=== PATIENT | male | born 1950 | race Caucasian/White ===

== ENCOUNTER 2017-07-03 20:20 | Inpatient (IN) | payer MEDICARE, OTHER ==
[2017-07-03 21:00] LABS: % BASOPHILS 2.7 % (0.0-2.0); % EOSINOPHILS 2.7 % (0.0-5.0); % LYMPHOCYTES 29.4 % (20.0-50.0); % MONOCYTES 7.7 % (2.0-10.0); % NEUTROPHILS 57.5 % (40.0-80.0); HEMATOCRIT 44.3 % (39.0-49.0); HEMOGLOBIN 14.7 gm/dL (12.6-17.4); MEAN CELL VOLUME 93.4 fl (80-99); MEAN CORPUSCULAR HEMOGLOBIN 30.9 pg (27.0-31.0); MEAN CORPUSCULAR HGB CONC 33.1 pg (28.0-36.0); MEAN PLATELET VOLUME 8.4 fl; NEUTROPHILE ABSOLUTE 4.1 Th/cmm (1.8-8.0); PLATELET COUNT 206 Th/cmm (150-400); RED BLOOD COUNT 4.74 Mil/cmm (3.80-5.80); RED CELL DISTRIBUTION WIDTH 14.1 % (11.5-20.0); WHITE BLOOD COUNT 7.1 Th/cmm (4.8-10.8)
--- NOTE | 2017-07-03 21:17 | ED Physician Chart ---
ED Chief Complaint/HPI - Patient Information Date Seen:: 07/03/17 Time Seen:: 21:10 Chief Complaint:: outburst of anger History of Present Illness:: exhibiting outbursts of anger and increased agitation [facility] Historian:: Patient Review:: Nurse's Note Reviewed ED Review of Systems - Review of Systems General/Constitutional: No fever, No chills Skin: No skin lesions Head: No headache Eyes: No loss of vision ENT: No earache Neck: No neck pain Cardio Vascular: No chest pain, No palpitations Pulmonary: No SOB GI: No nausea, No vomiting, No diarrhea G/U: No dysuria Musculoskeletal: No bone or joint pain Endocrine: No polyuria Psychiatric: Prior psych history Hematopoietic: No bruising Allergic/Immuno: No urticaria Neurological: No syncope, No focal symptoms ED Past Medical History - Past Medical History Past Medical History: HTN, Other (s/p sepsis; chronic renal disease; iron deficiency anemia; schizophrenia) Family History: None Social History: Smoker, Care Facility Surgical History: other (suprapubic catheter) Psychiatricy History: Schizophrenia Medication: Reviewed Family Medical History - Family Member Mother History Unknown: Yes ED Physical Exam - Physical Examination General/Constitutional: Alert, No distress Other Gen/Cons comments:: knows the month, year and day of the week Eyes: Lids, conjuctiva normal, PERRL Skin: Nl inspection, No rash ENMT: External ears, nose nl Other ENMT comments:: edentulous Neck: No nuchal rigidity Respiratory: Nl effort/Exclusion, Clear to Auscultation Cardio Vascular: RRR GI: No tenderness/rebounding/guarding, No organomegaly, No hernia Other comments:: suprapubic catheter Extremities: Normal digits & nails Neuro/Psych: No focal deficits ED Labs/Radiology/EKG Results - Lab Results Results: Laboratory Results - last 24 hr 07/03/17 07/03/17 07/03/17 20:54 20:54 20:54 WBC 7.1 RBC 4.74 Hgb 14.7 Hct 44.3 MCV 93.4 MCH 30.9 MCHC Differential 33.1 RDW 14.1 Plt Count 206 MPV 8.4 Neutrophils % 57.5 Lymphocytes % 29.4 Monocytes % 7.7 Eosinophils % 2.7 Basophils % 2.7 H Sodium 137 Potassium 4.3 Chloride 105 Carbon Dioxide 28.7 Anion Gap 7.6 BUN 25 Creatinine 0.9 Est GFR ( Amer) > 60.0 Est GFR (Non-Af Amer) > 60.0 BUN/Creatinine Ratio 27.8 Glucose 103 Calcium 10.0 Total Bilirubin 0.2 L AST 19 ALT 15 Alkaline Phosphatase 88 Total Protein 6.7 Albumin 4.0 L Globulin 2.7 Albumin/Globulin Ratio 1.5 Triglycerides 192 H Cholesterol 175 LDL Cholesterol Direct 101 HDL Cholesterol 54 Urine Source Urine Color Urine Clarity Urine pH Ur Specific [place] Urine Protein Urine Glucose (UA) Urine Ketones Urine Blood Urine Nitrate Urine Bilirubin Urine Urobilinogen Ur Leukocyte Esterase Urine RBC Urine WBC Ur Epithelial Cells Urine Bacteria Valproic Acid 90.5 07/03/17 21:20 WBC RBC Hgb Hct MCV MCH MCHC Differential RDW Plt Count MPV Neutrophils % Lymphocytes % Monocytes % Eosinophils % Basophils % Sodium Potassium Chloride Carbon Dioxide Anion Gap BUN Creatinine Est GFR ( Amer) Est GFR (Non-Af Amer) BUN/Creatinine Ratio Glucose Calcium Total Bilirubin AST ALT Alkaline Phosphatase Total Protein Albumin Globulin Albumin/Globulin Ratio Triglycerides Cholesterol LDL Cholesterol Direct HDL Cholesterol Urine Source CLEAN C Urine Color YELLOW Urine Clarity CLOUDY Urine pH 6.0 Ur Specific [place] 1.025 Urine Protein 100 H Urine Glucose (UA) NEGATIVE Urine Ketones NEGATIVE Urine Blood LARGE H Urine Nitrate NEGATIVE Urine Bilirubin NEGATIVE Urine Urobilinogen 0.2 Ur Leukocyte Esterase MODERATE H Urine RBC 25-50 H Urine WBC 25-50 H Ur Epithelial Cells NONE SEEN Urine Bacteria MODERATE Valproic Acid - EKG Interpretations Rate & Rhythm: sinus bradycardia; rate 49; LAD and RBBB ED Assessment - Assessment General Assessment: will not start antibiotics for UTI since everyone with suprapubic catheter will have pyuria ED Septic Shock - . Is Septic Shock (SBP<90, OR Lactate>4 mmol\L) present?: No ED Reassessment (Disposition) - Reassessment Reassessment Condition:: Unchanged - Diagnosis Diagnosis:: schizophrenia; agitation; pyuria; hematuria - Patient Disposition Admitted to:: [facility] Admitting Medical Physician:: Gloria Louie Admitting Psych Physician:: Emerita Gregg Condition at Disposition:: Stable, Unchanged
[2017-07-03 21:33] LABS: ALB/GLOB RATIO 1.5 (1.0-1.8); ALKALINE PHOSPHATASE 88 U/L (34-104); ANION GAP 7.6 (7.0-16.0); BILIRUBIN,TOTAL 0.2 mg/dL (0.3-1.0); BUN - UREA NITROGEN 25 mg/dL (7-25); BUN/CREATININE RATIO 27.8; CARBON DIOXIDE 28.7 mEq/L (21.0-31.0); CHLORIDE 105 mEq/L (98-107); CHOLESTEROL 175 mg/dL (<200); CREATININE - SERUM 0.9 mg/dL (0.7-1.3); GLUCOSE 103 mg/dL (70-105); POTASSIUM SERUM 4.3 mEq/L (3.5-5.1); SGOT 19 U/L (13-39); SGPT/ALT 15 U/L (7-52); SODIUM SERUM 137 mEq/L (136-145); TRIGLYCERIDES 192 mg/dL (<150)
[2017-07-03 21:40] LABS: URINE BILIRUBIN NEGATIVE (NEGATIVE); URINE BLOOD LARGE (NEGATIVE); URINE GLUCOSE (UA) NEGATIVE (NEGATIVE); URINE KETONE NEGATIVE (NEGATIVE); URINE PROTEIN 100 mg/dL (NEGATIVE); URINE UROBILINOGEN 0.2 E.U./dL (0.2 - 1.0)
[2017-07-03 21:45] LABS: URINE COLOR YELLOW
[2017-07-03 21:50] LABS: URINE BACTERIA MODERATE /hpf (NONE SEEN); URINE EPITHELIAL CELLS NONE SEEN /lpf (FEW); URINE RBC 25-50 /hpf (0-5)
[2017-07-03 21:57] LABS: URINE WBC 25-50 /hpf (0-5)
[2017-07-03 23:17] VITALS: BP 132/78
[2017-07-03] MEDS ORDERED: Magnesium Hydroxide (MOM) 30 mL UDC PO PRN (23:20)
[2017-07-03] MEDS ORDERED: Fleet Enema 135 mL RC PRN (23:20)
[2017-07-04] MEDS ORDERED: Non-Formulary Item 1 EA (Cranberry Conc/C/Bacill Coag [Cranberry Tablet] 1 EACH) PO SCH (09:00)
[2017-07-04] MEDS: Multivitamin w/ Minerals Tab PO SCH (10:22)
[2017-07-04] MEDS: Aspirin 81mg Chewable Tab PO SCH (10:22)
[2017-07-04] MEDS: Ferrous Sulfate 325 MG TAB PO SCH ×3 (10:24→21:15)
--- NOTE | 2017-07-04 13:17 | Psychosocial Evaluation ---
DATE OF SERVICE: 07/04/2017 IDENTIFYING INFORMATION: The patient is a 66-year-old male. CHIEF COMPLAINT: "I don't know." HISTORY OF PRESENT ILLNESS: The patient was sent from his senior living because of agitation. He came from [facility]. The patient himself was a poor historian and ____ he knows he is in the hospital; he thinks he lives in the hospital. He does not know exactly why he is here. He denies that he was hallucinating, but he admits that he has a history of hallucination. Denies any command hallucination. He reports he sleep well. He is not eating well. He was able to tell me the date and his date of , but his speech was pressured when I talked to him. The patient has been on Depakote, iron, Remeron 30 mg at bedtime, and olanzapine 10 mg at bedtime. PAST PSYCHIATRIC HISTORY: The patient reported that he has a history of prior hospitalizations because of pain, unable to give information. He denies that he has prior suicide attempt; however, he is not a reliable historian. ALLERGIES: The patient has no known drug allergies. MEDICAL HISTORY: I defer to the medical doctor. MEDICATIONS: He is on aspirin, iron; so probably he has anemia. He has pain. He is on Tylenol No. 3. He has high blood pressure and on metoprolol. FAMILY AND SOCIAL HISTORY: The patient reports he is single, never , no children, has 5th grade education. He used to work in wood carving. Denies substance abuse problems. He denies having any family psychiatric disorder. He is not sure if there is any family around. MENTAL STATUS EXAMINATION: The patient is appropriately dressed, not well groomed. His mood is depressed. Affect is constricted. Thoughts are concrete. Speech is coherent, though he was alert, oriented to person and time. He knows he is in hospital. He is not sure which hospital. He is not sure why is here, thinking is here because of pain. He has no clue about this situation as he was very agitated at the senior living. He seems to have average intelligence. He was able to tell me the current President of [employer]. He is not sure why he is here. His long-term memory is good for age, date of . Recent memory, cannot remember events of intent or what he ate for breakfast. Immediate memory is poor, cannot concentrate long enough. His insight and judgment are questionable. 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 ASSETS: He wants to get help negative poor coping skills. INITIAL TREATMENT PLAN: The patient will be continued with medications. We will do group therapy, milieu therapy, individual therapies. ESTIMATED LENGTH OF STAY: 3-7 days. DISCHARGE CRITERIA: Decreasing depression, psychosis no longer agitated. After discharge, outpatient. [facility]# [id number]
--- NOTE | 2017-07-05 01:44 | History & Physical ---
ADMIT DATE: 07/03/2017 HISTORY OF PRESENT ILLNESS: A 66-year-old male with long history of hypertension, dementia, depression and psychosis, admitted to Geropsych Department under Dr. Gregg's service for evaluation and treatment. The patient has been very depressed, confused. No chest pain, no shortness of breath, no nausea, no vomiting, no fever, no chills. PAST MEDICAL HISTORY: Significant for hypertension, dementia, depression. PAST SURGICAL HISTORY: No recent surgery. ALLERGIES: None. MEDICATIONS: Follow admission reconciliation. SOCIAL HISTORY: No smoking, no alcohol, no drug. FAMILY HISTORY: Noncontributory. REVIEW OF SYSTEMS: RENAL SYSTEM: No history of chronic renal disorder. CARDIOVASCULAR SYSTEM: History of hypertension. ENDOCRINE SYSTEM: No diabetes or thyroid problem. GASTROINTESTINAL SYSTEM: No upper or lower gastrointestinal bleed. NEUROLOGICAL: He has history of dementia, depression, and psychosis. MUSCULOSKELETAL SYSTEM: No muscular dystrophy. HEMATOLOGIC SYSTEM: No bleeding tendencies. RESPIRATORY: No asthma. GENITOURINARY: No dysuria or hematuria. PHYSICAL EXAMINATION: GENERAL: He is awake, alert, mildly confused. VITAL SIGNS: His temperature 98.2, heart rate 96, blood pressure 103/52. HEENT: Normocephalic. Pupils reactive to light and accommodation. Sclerae clear. NECK: Supple. Negative for lymphadenopathy, JVD or bruit. CHEST: Bilateral normal. No rhonchi or wheezing. HEART: S1, S2 normal, no gallop. ABDOMEN: Soft, bowel sounds positive. EXTREMITIES: No edema. NEUROLOGIC: Awake, alert, mildly confused. No focal motor or sensory deficits. LABORATORY DATA: White blood 7.1, hemoglobin 14.7, hematocrit 44.3, platelet 206. Sodium 137, potassium 4.3, BUN 25, creatinine 0.9, triglyceride is 192. Urinalysis positive for white blood cells. ASSESSMENT: 1.Urinary tract infection. 2.Hypertension. 3.Dementia. 4.Depression. 5.Hyperlipidemia. PLAN: The patient admitted to the hospital under Dr. Gregg's service. MEDICAL PROBLEMS TO BE ADDRESSED DURING HOSPITALIZATION: Depression, dementia, psychosis, urinary tract infection. MEDICAL PROBLEMS TO BE ADDRESSED AT DISCHARGE: Hypertension, dementia, depression. The patient is medically stable for activity. Thank you, Dr. Gregg, for asking me to see your patient. JOB# [id number]
[2017-07-05] MEDS: Multivitamin w/ Minerals Tab PO SCH (10:00)
[2017-07-05] MEDS: Aspirin 81mg Chewable Tab PO SCH (10:00)
[2017-07-05] MEDS: Ferrous Sulfate 325 MG TAB PO SCH ×3 (10:00→20:55)
--- NOTE | 2017-07-05 20:33 | Internal Medicine Prog Note ---
Internal Medicine Subjective - Subjective Service Date: 07/05/17 Patient seen and examined:: with staff Patient is:: awake, in bed, talking, confused Per staff patient has:: no adverse event Internal Medicine Objective - Results Result Diagrams: 07/03/17 20:54 07/03/17 20:54 Recent Labs: Laboratory Last Values WBC 7.1 Th/cmm (4.8-10.8) 07/03/17 20:54 RBC 4.74 Mil/cmm (3.80-5.80) 07/03/17 20:54 Hgb 14.7 gm/dL (12.6-17.4) 07/03/17 20:54 Hct 44.3 % (39.0-49.0) 07/03/17 20:54 MCV 93.4 fl (80-99) 07/03/17 20:54 MCH 30.9 pg (27.0-31.0) 07/03/17 20:54 MCHC Differential 33.1 pg (28.0-36.0) 07/03/17 20:54 RDW 14.1 % (11.5-20.0) 07/03/17 20:54 Plt Count 206 Th/cmm (150-400) 07/03/17 20:54 MPV 8.4 fl 07/03/17 20:54 Neutrophils % 57.5 % (40.0-80.0) 07/03/17 20:54 Lymphocytes % 29.4 % (20.0-50.0) 07/03/17 20:54 Monocytes % 7.7 % (2.0-10.0) 07/03/17 20:54 Eosinophils % 2.7 % (0.0-5.0) 07/03/17 20:54 Basophils % 2.7 % (0.0-2.0) H 07/03/17 20:54 Sodium 137 mEq/L (136-145) 07/03/17 20:54 Potassium 4.3 mEq/L (3.5-5.1) 07/03/17 20:54 Chloride 105 mEq/L (98-107) 07/03/17 20:54 Carbon Dioxide 28.7 mEq/L (21.0-31.0) 07/03/17 20:54 Anion Gap 7.6 (7.0-16.0) 07/03/17 20:54 BUN 25 mg/dL (7-25) 07/03/17 20:54 Creatinine 0.9 mg/dL (0.7-1.3) 07/03/17 20:54 Est GFR ( Amer) > 60.0 ml/min (>90) 07/03/17 20:54 Est GFR (Non-Af Amer) > 60.0 ml/min 07/03/17 20:54 BUN/Creatinine Ratio 27.8 07/03/17 20:54 Glucose 103 mg/dL (70-105) 07/03/17 20:54 Calcium 10.0 mg/dL (8.6-10.3) 07/03/17 20:54 Total Bilirubin 0.2 mg/dL (0.3-1.0) L 07/03/17 20:54 AST 19 U/L (13-39) 07/03/17 20:54 ALT 15 U/L (7-52) 07/03/17 20:54 Alkaline Phosphatase 88 U/L (34-104) 07/03/17 20:54 Total Protein 6.7 gm/dL (6.0-8.3) 07/03/17 20:54 Albumin 4.0 gm/dL (4.2-5.5) L 07/03/17 20:54 Globulin 2.7 gm/dL 07/03/17 20:54 Albumin/Globulin Ratio 1.5 (1.0-1.8) 07/03/17 20:54 Triglycerides 192 mg/dL (<150) H 07/03/17 20:54 Cholesterol 175 mg/dL (<200) 07/03/17 20:54 LDL Cholesterol Direct 101 mg/dL (75-193) 07/03/17 20:54 HDL Cholesterol 54 mg/dL (23-92) 07/03/17 20:54 TSH 2.72 uIU/ml (0.34-5.60) 07/03/17 20:54 Urine Source CLEAN C 07/03/17 21:20 Urine Color YELLOW 07/03/17 21:20 Urine Clarity CLOUDY (CLEAR) 07/03/17 21:20 Urine pH 6.0 (4.6 - 8.0) 07/03/17 21:20 Ur Specific [place] 1.025 (1.005-1.030) 07/03/17 21:20 Urine Protein 100 mg/dL (NEGATIVE) H 07/03/17 21:20 Urine Glucose (UA) NEGATIVE mg/dL (NEGATIVE) 07/03/17 21:20 Urine Ketones NEGATIVE mg/dL (NEGATIVE) 07/03/17 21:20 Urine Blood LARGE (NEGATIVE) H 07/03/17 21:20 Urine Nitrate NEGATIVE (NEGATIVE) 07/03/17 21:20 Urine Bilirubin NEGATIVE (NEGATIVE) 07/03/17 21:20 Urine Urobilinogen 0.2 E.U./dL (0.2 - 1.0) 07/03/17 21:20 Ur Leukocyte Esterase MODERATE (NEGATIVE) H 07/03/17 21:20 Urine RBC 25-50 /hpf (0-5) H 07/03/17 21:20 Urine WBC 25-50 /hpf (0-5) H 07/03/17 21:20 Ur Epithelial Cells NONE SEEN /lpf (FEW) 07/03/17 21:20 Urine Bacteria MODERATE /hpf (NONE SEEN) 07/03/17 21:20 Valproic Acid 90.5 ug/mL (50.0-100.0) 07/03/17 20:54 RPR NONREACTIVE (NONREACTIVE) 07/03/17 20:54 - Physical Exam Vitals and I&O: Vital Signs Temp 98.4 F 07/05/17 14:00 Pulse 64 07/05/17 17:41 Resp 19 07/05/17 14:00 BP 126/83 07/05/17 17:41 Pulse Ox 97 07/05/17 14:00 Intake & Output 07/05/17 07/05/17 07/06/17 06:59 18:59 06:59 Intake Total 1200 Output Total 450 Balance -450 1200 Intake: Oral 1200 Output: Urine 450 Other: # Bowel Movements 0 Active Medications: Current Medications Acetaminophen (Tylenol) 650 mg PO Q4HR PRN PRN Reason: Pain or Fever >101 Stop: 09/01/17 23:19 Last Admin: 07/05/17 10:00 Dose: 650 mg Acetaminophen/Hydrocodone Bitart ([place] 5mg/325mg) 1 tab PO Q6H PRN PRN Reason: Pain (Severe) Stop: 09/01/17 23:19 Ascorbic Acid (Vitamin C) 500 mg PO DAILY LUCIA Stop: 09/02/17 08:59 Last Admin: 07/05/17 10:00 Dose: 500 mg Aspirin (Aspirin Chewable) 81 mg PO DAILY ULCIA Stop: 09/02/17 08:59 Last Admin: 07/05/17 10:00 Dose: 81 mg Bisacodyl (Dulcolax 10 Mg Supp) 10 mg RC DAILY PRN PRN Reason: Constipation Stop: 09/01/17 23:19 Ceftriaxone Sodium (Rocephin) 1 gm IM DAILY L[facility]IA Stop: 07/09/17 09:01 Last Admin: 07/05/17 14:59 Dose: 1 gm Divalproex Sodium (Depakote Dr) 500 mg PO TID LUCIA PRN Reason: Protocol Stop: 09/02/17 08:59 Last Admin: 07/05/17 13:15 Dose: 500 mg Docusate Sodium (Colace) 100 mg PO BID [facility] Stop: 09/02/17 08:59 Last Admin: 07/05/17 17:40 Dose: 100 mg Ferrous Sulfate (Iron) 325 mg PO TID LUCIA Stop: 09/02/17 08:59 Last Admin: 07/05/17 13:15 Dose: 325 mg Magnesium Hydroxide (Milk Of Magnesia) 30 ml PO HS PRN PRN Reason: Constipation Stop: 09/01/17 23:19 Metoprolol Tartrate (Lopressor) 25 mg PO BID [facility] Stop: 09/02/17 08:59 Last Admin: 07/05/17 17:41 Dose: 25 mg Mirtazapine (Remeron) 30 mg PO HS [facility] Stop: 09/02/17 20:59 Last Admin: 07/04/17 21:15 Dose: 30 mg Olanzapine (Zyprexa) 10 mg PO HS [facility] PRN Reason: Protocol Stop: 09/02/17 20:59 Last Admin: 07/04/17 21:15 Dose: 10 mg Sodium Phosphate (Fleet Enema) 135 ml RC Q48H PRN PRN Reason: Constipation Stop: 09/01/17 23:19 General: demented HEENT: NC/AT, PERRLA, EOMI, anicteric sclerae, throat clear Neck: No JVD, No thyromegaly, +2 carotid pulse wo bruit, No LAD, + JVD Lungs: CTAB Cardiovascular: RRR, Normal S1, Normal S2, without murmur Abdomen: soft, non-tender, non-distended Extremities: clear Neurological: no change Internal Medicine Assmt/Plan - Assessment Assessment: 1.UTI. 2.DEPRESSION. 3.HTNT 4.DEMENTIA - Plan Plan: CONTINUE ON ROCEPHIN ONE GM IM DAILY FOR 5 DAYS.
[2017-07-06] MEDS: Hydrocodone/APAP 5mg/325mg Tab PO PRN (09:14)
[2017-07-06] MEDS: Ferrous Sulfate 325 MG TAB PO SCH ×3 (09:16→20:34)
[2017-07-06] MEDS: Multivitamin w/ Minerals Tab PO SCH (09:16)
[2017-07-06] MEDS: Aspirin 81mg Chewable Tab PO SCH (09:16)
--- NOTE | 2017-07-06 20:55 | Progress Notes ---
DATE: 07/05/2017 This is a male patient, reviewed records. The patient continues to be internally preoccupied. Continues to be unpredictable, impulsive, making bizarre statements, very poor insight. He is compliant with the medication with no side effects or sedation. No nausea, no extrapyramidal symptoms. I will continue the patient in group therapy, milieu therapy, adjust medication as needed. [facility]# [id number]
--- NOTE | 2017-07-06 21:41 | Internal Medicine Prog Note ---
Internal Medicine Subjective - Subjective Service Date: 07/06/17 Patient seen and examined:: with staff Patient is:: awake, in bed, talking, confused Per staff patient has:: no adverse event Internal Medicine Objective - Results Result Diagrams: 07/03/17 20:54 07/03/17 20:54 Recent Labs: Laboratory Last Values WBC 7.1 Th/cmm (4.8-10.8) 07/03/17 20:54 RBC 4.74 Mil/cmm (3.80-5.80) 07/03/17 20:54 Hgb 14.7 gm/dL (12.6-17.4) 07/03/17 20:54 Hct 44.3 % (39.0-49.0) 07/03/17 20:54 MCV 93.4 fl (80-99) 07/03/17 20:54 MCH 30.9 pg (27.0-31.0) 07/03/17 20:54 MCHC Differential 33.1 pg (28.0-36.0) 07/03/17 20:54 RDW 14.1 % (11.5-20.0) 07/03/17 20:54 Plt Count 206 Th/cmm (150-400) 07/03/17 20:54 MPV 8.4 fl 07/03/17 20:54 Neutrophils % 57.5 % (40.0-80.0) 07/03/17 20:54 Lymphocytes % 29.4 % (20.0-50.0) 07/03/17 20:54 Monocytes % 7.7 % (2.0-10.0) 07/03/17 20:54 Eosinophils % 2.7 % (0.0-5.0) 07/03/17 20:54 Basophils % 2.7 % (0.0-2.0) H 07/03/17 20:54 Sodium 137 mEq/L (136-145) 07/03/17 20:54 Potassium 4.3 mEq/L (3.5-5.1) 07/03/17 20:54 Chloride 105 mEq/L (98-107) 07/03/17 20:54 Carbon Dioxide 28.7 mEq/L (21.0-31.0) 07/03/17 20:54 Anion Gap 7.6 (7.0-16.0) 07/03/17 20:54 BUN 25 mg/dL (7-25) 07/03/17 20:54 Creatinine 0.9 mg/dL (0.7-1.3) 07/03/17 20:54 Est GFR ( Amer) > 60.0 ml/min (>90) 07/03/17 20:54 Est GFR (Non-Af Amer) > 60.0 ml/min 07/03/17 20:54 BUN/Creatinine Ratio 27.8 07/03/17 20:54 Glucose 103 mg/dL (70-105) 07/03/17 20:54 Calcium 10.0 mg/dL (8.6-10.3) 07/03/17 20:54 Total Bilirubin 0.2 mg/dL (0.3-1.0) L 07/03/17 20:54 AST 19 U/L (13-39) 07/03/17 20:54 ALT 15 U/L (7-52) 07/03/17 20:54 Alkaline Phosphatase 88 U/L (34-104) 07/03/17 20:54 Total Protein 6.7 gm/dL (6.0-8.3) 07/03/17 20:54 Albumin 4.0 gm/dL (4.2-5.5) L 07/03/17 20:54 Globulin 2.7 gm/dL 07/03/17 20:54 Albumin/Globulin Ratio 1.5 (1.0-1.8) 07/03/17 20:54 Triglycerides 192 mg/dL (<150) H 07/03/17 20:54 Cholesterol 175 mg/dL (<200) 07/03/17 20:54 LDL Cholesterol Direct 101 mg/dL (75-193) 07/03/17 20:54 HDL Cholesterol 54 mg/dL (23-92) 07/03/17 20:54 TSH 2.72 uIU/ml (0.34-5.60) 07/03/17 20:54 Urine Source CLEAN C 07/03/17 21:20 Urine Color YELLOW 07/03/17 21:20 Urine Clarity CLOUDY (CLEAR) 07/03/17 21:20 Urine pH 6.0 (4.6 - 8.0) 07/03/17 21:20 Ur Specific [place] 1.025 (1.005-1.030) 07/03/17 21:20 Urine Protein 100 mg/dL (NEGATIVE) H 07/03/17 21:20 Urine Glucose (UA) NEGATIVE mg/dL (NEGATIVE) 07/03/17 21:20 Urine Ketones NEGATIVE mg/dL (NEGATIVE) 07/03/17 21:20 Urine Blood LARGE (NEGATIVE) H 07/03/17 21:20 Urine Nitrate NEGATIVE (NEGATIVE) 07/03/17 21:20 Urine Bilirubin NEGATIVE (NEGATIVE) 07/03/17 21:20 Urine Urobilinogen 0.2 E.U./dL (0.2 - 1.0) 07/03/17 21:20 Ur Leukocyte Esterase MODERATE (NEGATIVE) H 07/03/17 21:20 Urine RBC 25-50 /hpf (0-5) H 07/03/17 21:20 Urine WBC 25-50 /hpf (0-5) H 07/03/17 21:20 Ur Epithelial Cells NONE SEEN /lpf (FEW) 07/03/17 21:20 Urine Bacteria MODERATE /hpf (NONE SEEN) 07/03/17 21:20 Valproic Acid 90.5 ug/mL (50.0-100.0) 07/03/17 20:54 RPR NONREACTIVE (NONREACTIVE) 07/03/17 20:54 - Physical Exam Vitals and I&O: Vital Signs Temp 97.0 F 07/06/17 14:05 Pulse 56 07/06/17 14:05 Resp 20 07/06/17 14:05 BP 137/78 07/06/17 14:05 Pulse Ox 97 07/06/17 14:05 Intake & Output 07/06/17 07/06/17 07/07/17 06:59 18:59 06:59 Intake Total 120 800 Output Total 650 900 Balance -530 -100 Intake: Oral 120 800 Output: Urine 650 900 Other: # Bowel Movements 0 Active Medications: Current Medications Acetaminophen (Tylenol) 650 mg PO Q4HR PRN PRN Reason: Pain or Fever >101 Stop: 09/01/17 23:19 Last Admin: 07/05/17 20:54 Dose: 650 mg Acetaminophen/Hydrocodone Bitart ([place] 5mg/325mg) 1 tab PO Q6H PRN PRN Reason: Pain (Severe) Stop: 09/01/17 23:19 Last Admin: 07/06/17 09:14 Dose: 1 tab Ascorbic Acid (Vitamin C) 500 mg PO DAILY [facility] Stop: 09/02/17 08:59 Last Admin: 07/06/17 09:16 Dose: 500 mg Aspirin (Aspirin Chewable) 81 mg PO DAILY [facility] Stop: 09/02/17 08:59 Last Admin: 07/06/17 09:16 Dose: 81 mg Bisacodyl (Dulcolax 10 Mg Supp) 10 mg RC DAILY PRN PRN Reason: Constipation Stop: 09/01/17 23:19 Ceftriaxone Sodium (Rocephin) 1 gm IM DAILY [facility] Stop: 07/09/17 09:01 Last Admin: 07/06/17 09:14 Dose: 1 gm Divalproex Sodium (Depakote Dr) 500 mg PO TID [facility]IA PRN Reason: Protocol Stop: 09/02/17 08:59 Last Admin: 07/06/17 20:34 Dose: 500 mg Docusate Sodium (Colace) 100 mg PO BID [facility] Stop: 09/02/17 08:59 Last Admin: 07/06/17 16:29 Dose: 100 mg Ferrous Sulfate (Iron) 325 mg PO TID [facility] Stop: 09/02/17 08:59 Last Admin: 07/06/17 20:34 Dose: 325 mg Magnesium Hydroxide (Milk Of Magnesia) 30 ml PO HS PRN PRN Reason: Constipation Stop: 09/01/17 23:19 Metoprolol Tartrate (Lopressor) 25 mg PO BID [facility] Stop: 09/02/17 08:59 Last Admin: 07/06/17 16:30 Dose: Not Given Mirtazapine (Remeron) 30 mg PO HS [facility] Stop: 09/02/17 20:59 Last Admin: 07/06/17 20:34 Dose: 30 mg Olanzapine (Zyprexa) 10 mg PO HS [facility] PRN Reason: Protocol Stop: 09/02/17 20:59 Last Admin: 07/06/17 20:34 Dose: 10 mg Sodium Phosphate (Fleet Enema) 135 ml RC Q48H PRN PRN Reason: Constipation Stop: 09/01/17 23:19 General: demented HEENT: NC/AT, PERRLA, EOMI, anicteric sclerae, throat clear Neck: No JVD, No thyromegaly, +2 carotid pulse wo bruit, No LAD, + JVD Lungs: CTAB Cardiovascular: RRR, Normal S1, Normal S2, without murmur Abdomen: soft, non-tender, non-distended Extremities: clear Neurological: no change Internal Medicine Assmt/Plan - Assessment Assessment: 1.UTI. 2.DEPRESSION. 3.HTNT 4.DEMENTIA - Plan Plan: CONTINUE ON current medication and diet.
--- NOTE | 2017-07-07 05:01 | Progress Notes ---
DATE: 07/06/2017 Case was discussed with staff of the patient, reviewed records. The patient continues to stay in bed. He continues to be unable to make safe plan for self-care or participate in a meaningful conversation. He is unable to take care of himself, needs to take care with his ADLs. He is unpredictable, impulsive, needing redirection. His Depakote level is 90.5 which is within acceptable therapeutic range. TSH is 2.72 which is within acceptable range. Urinalysis shows evidence of blood and may be infection and proteinuria and I will consult with the medical doctor regarding that. He has high triglycerides. His chemistry panel was within normal range. CBC within normal range. We will continue with the patient in group therapy, milieu therapy, and adjust the medications as needed. JOB# [id number]
[2017-07-07] MEDS: Aspirin 81mg Chewable Tab PO SCH (08:19)
[2017-07-07] MEDS: Multivitamin w/ Minerals Tab PO SCH (08:22)
[2017-07-07] MEDS: Ferrous Sulfate 325 MG TAB PO SCH ×3 (08:22→20:47)
[2017-07-07] MEDS: Hydrocodone/APAP 5mg/325mg Tab PO PRN ×2 (09:45→16:56)
[2017-07-07] MEDS ORDERED: Probiotic Screen MC PRN (18:00)
--- NOTE | 2017-07-08 02:22 | Progress Notes ---
DATE: 07/07/2017 Case was discussed with staff of the patient, reviewed records. The patient continues to stay in bed, continues to have poor insight. Continues to be unable to make safe plan for self-care. Looking disheveled, disorganized, internally preoccupied. He has been compliant with the medication with no side effects, no sedation, no nausea, no extrapyramidal symptoms and his urine culture came back positive for different ____ already discussed with the medical doctor. I will continue with the patient in group therapy, milieu therapy, and adjust medications as needed. JOB# [id number]
[2017-07-08] MEDS: Lactobacillus Rhamnosus 10 Billion CFU Capsule PO SCH (08:23)
[2017-07-08] MEDS: Multivitamin w/ Minerals Tab PO SCH (08:23)
[2017-07-08] MEDS: Ferrous Sulfate 325 MG TAB PO SCH ×3 (08:23→20:43)
[2017-07-08] MEDS: Aspirin 81mg Chewable Tab PO SCH (08:23)
--- NOTE | 2017-07-08 13:08 | Internal Medicine Prog Note ---
Internal Medicine Subjective - Subjective Service Date: 07/08/17 Patient seen and examined:: without staff Patient is:: awake, in bed, talking, confused Per staff patient has:: no adverse event Internal Medicine Objective - Results Result Diagrams: 07/03/17 20:54 07/03/17 20:54 Recent Labs: Laboratory Last Values WBC 7.1 Th/cmm (4.8-10.8) 07/03/17 20:54 RBC 4.74 Mil/cmm (3.80-5.80) 07/03/17 20:54 Hgb 14.7 gm/dL (12.6-17.4) 07/03/17 20:54 Hct 44.3 % (39.0-49.0) 07/03/17 20:54 MCV 93.4 fl (80-99) 07/03/17 20:54 MCH 30.9 pg (27.0-31.0) 07/03/17 20:54 MCHC Differential 33.1 pg (28.0-36.0) 07/03/17 20:54 RDW 14.1 % (11.5-20.0) 07/03/17 20:54 Plt Count 206 Th/cmm (150-400) 07/03/17 20:54 MPV 8.4 fl 07/03/17 20:54 Neutrophils % 57.5 % (40.0-80.0) 07/03/17 20:54 Lymphocytes % 29.4 % (20.0-50.0) 07/03/17 20:54 Monocytes % 7.7 % (2.0-10.0) 07/03/17 20:54 Eosinophils % 2.7 % (0.0-5.0) 07/03/17 20:54 Basophils % 2.7 % (0.0-2.0) H 07/03/17 20:54 Sodium 137 mEq/L (136-145) 07/03/17 20:54 Potassium 4.3 mEq/L (3.5-5.1) 07/03/17 20:54 Chloride 105 mEq/L (98-107) 07/03/17 20:54 Carbon Dioxide 28.7 mEq/L (21.0-31.0) 07/03/17 20:54 Anion Gap 7.6 (7.0-16.0) 07/03/17 20:54 BUN 25 mg/dL (7-25) 07/03/17 20:54 Creatinine 0.9 mg/dL (0.7-1.3) 07/03/17 20:54 Est GFR ( Amer) > 60.0 ml/min (>90) 07/03/17 20:54 Est GFR (Non-Af Amer) > 60.0 ml/min 07/03/17 20:54 BUN/Creatinine Ratio 27.8 07/03/17 20:54 Glucose 103 mg/dL (70-105) 07/03/17 20:54 Calcium 10.0 mg/dL (8.6-10.3) 07/03/17 20:54 Total Bilirubin 0.2 mg/dL (0.3-1.0) L 07/03/17 20:54 AST 19 U/L (13-39) 07/03/17 20:54 ALT 15 U/L (7-52) 07/03/17 20:54 Alkaline Phosphatase 88 U/L (34-104) 07/03/17 20:54 Total Protein 6.7 gm/dL (6.0-8.3) 07/03/17 20:54 Albumin 4.0 gm/dL (4.2-5.5) L 07/03/17 20:54 Globulin 2.7 gm/dL 07/03/17 20:54 Albumin/Globulin Ratio 1.5 (1.0-1.8) 07/03/17 20:54 Triglycerides 192 mg/dL (<150) H 07/03/17 20:54 Cholesterol 175 mg/dL (<200) 07/03/17 20:54 LDL Cholesterol Direct 101 mg/dL (75-193) 07/03/17 20:54 HDL Cholesterol 54 mg/dL (23-92) 07/03/17 20:54 TSH 2.72 uIU/ml (0.34-5.60) 07/03/17 20:54 Urine Source CLEAN C 07/03/17 21:20 Urine Color YELLOW 07/03/17 21:20 Urine Clarity CLOUDY (CLEAR) 07/03/17 21:20 Urine pH 6.0 (4.6 - 8.0) 07/03/17 21:20 Ur Specific [place] 1.025 (1.005-1.030) 07/03/17 21:20 Urine Protein 100 mg/dL (NEGATIVE) H 07/03/17 21:20 Urine Glucose (UA) NEGATIVE mg/dL (NEGATIVE) 07/03/17 21:20 Urine Ketones NEGATIVE mg/dL (NEGATIVE) 07/03/17 21:20 Urine Blood LARGE (NEGATIVE) H 07/03/17 21:20 Urine Nitrate NEGATIVE (NEGATIVE) 07/03/17 21:20 Urine Bilirubin NEGATIVE (NEGATIVE) 07/03/17 21:20 Urine Urobilinogen 0.2 E.U./dL (0.2 - 1.0) 07/03/17 21:20 Ur Leukocyte Esterase MODERATE (NEGATIVE) H 07/03/17 21:20 Urine RBC 25-50 /hpf (0-5) H 07/03/17 21:20 Urine WBC 25-50 /hpf (0-5) H 07/03/17 21:20 Ur Epithelial Cells NONE SEEN /lpf (FEW) 07/03/17 21:20 Urine Bacteria MODERATE /hpf (NONE SEEN) 07/03/17 21:20 Valproic Acid 90.5 ug/mL (50.0-100.0) 07/03/17 20:54 RPR NONREACTIVE (NONREACTIVE) 07/03/17 20:54 - Physical Exam Vitals and I&O: Vital Signs Temp 97.8 F 07/08/17 05:58 Pulse 60 07/08/17 05:58 Resp 19 07/08/17 05:58 BP 104/65 07/08/17 05:58 Pulse Ox 97 07/08/17 05:58 Intake & Output 07/07/17 07/08/17 07/08/17 18:59 06:59 18:59 Intake Total 700 320 Output Total 400 Balance 700 -80 Weight (lbs) 59.511 kg Intake: Oral 700 320 Output: Urine 400 Other: # Voids 3 2 # Bowel Movements 1 0 Active Medications: Current Medications Acetaminophen (Tylenol) 650 mg PO Q4HR PRN PRN Reason: Pain or Fever >101 Stop: 09/01/17 23:19 Last Admin: 07/05/17 20:54 Dose: 650 mg Acetaminophen/Hydrocodone Bitart ([place] 5mg/325mg) 1 tab PO Q6H PRN PRN Reason: Pain (Severe) Stop: 09/01/17 23:19 Last Admin: 07/07/17 16:56 Dose: 1 tab Ascorbic Acid (Vitamin C) 500 mg PO DAILY [facility] Stop: 09/02/17 08:59 Last Admin: 07/08/17 08:23 Dose: 500 mg Aspirin (Aspirin Chewable) 81 mg PO DAILY [facility] Stop: 09/02/17 08:59 Last Admin: 07/08/17 08:23 Dose: 81 mg Bisacodyl (Dulcolax 10 Mg Supp) 10 mg RC DAILY PRN PRN Reason: Constipation Stop: 09/01/17 23:19 Ceftriaxone Sodium (Rocephin) 1 gm IM DAILY [facility] Stop: 07/09/17 09:01 Last Admin: 07/08/17 09:57 Dose: 1 gm Divalproex Sodium (Depakote Dr) 500 mg PO TID [facility] PRN Reason: Protocol Stop: 09/02/17 08:59 Last Admin: 07/08/17 08:23 Dose: 500 mg Docusate Sodium (Colace) 100 mg PO BID [facility] Stop: 09/02/17 08:59 Last Admin: 07/08/17 08:23 Dose: 100 mg Ferrous Sulfate (Iron) 325 mg PO TID [facility] Stop: 09/02/17 08:59 Last Admin: 07/08/17 08:23 Dose: 325 mg Lactobacillus Rhamnosus (Culturelle) 1 each PO DAILY [facility] Stop: 09/06/17 08:59 Last Admin: 07/08/17 08:23 Dose: 1 each Magnesium Hydroxide (Milk Of Magnesia) 30 ml PO HS PRN PRN Reason: Constipation Stop: 09/01/17 23:19 Metoprolol Tartrate (Lopressor) 25 mg PO BID [facility] Stop: 09/02/17 08:59 Last Admin: 07/08/17 08:23 Dose: Not Given Mirtazapine (Remeron) 30 mg PO HS [facility] Stop: 09/02/17 20:59 Last Admin: 07/07/17 20:46 Dose: 30 mg Miscellaneous (Probiotic Screen) 1 ea MC PRN PRN PRN Reason: PROTOCOL Stop: 09/05/17 17:59 Olanzapine (Zyprexa) 10 mg PO HS [facility] PRN Reason: Protocol Stop: 09/02/17 20:59 Last Admin: 07/07/17 20:48 Dose: 10 mg Sodium Phosphate (Fleet Enema) 135 ml RC Q48H PRN PRN Reason: Constipation Stop: 09/01/17 23:19 General: demented HEENT: NC/AT, PERRLA, EOMI, anicteric sclerae, throat clear Neck: No JVD, No thyromegaly, +2 carotid pulse wo bruit, No LAD, + JVD Lungs: CTAB Cardiovascular: RRR, Normal S1, Normal S2, without murmur Abdomen: soft, non-tender, non-distended Extremities: clear Neurological: no change Internal Medicine Assmt/Plan - Assessment Assessment: 1.UTI. 2.DEPRESSION. 3.HTNT 4.DEMENTIA - Plan Plan: CONTINUE ON current medication and diet. Nutritional Asmnt/Malnutr-PDOC - Dietary Evaluation Malnutrition Findings (Please click <Entered> for more info): Nutritional Asmnt/Malnutrition Start: 07/07/17 18: 41 Text: Status: Complete Freq: Document 07/07/17 18:41 GSUN (Rec: 07/07/17 18:43 GSUN [id number]) Nutritional Asmnt/Malnutrition Patient General Information Nutritional Screening Moderate Risk Screening Diagnosis Major depression, recurrent with psychosis and dementia Pertinent Medical Hx/Surgical Hx HTN, dementia, depression psychosis Subjective Information 66 year old from SNF. Spoke to pt resting in bed. Pt was pleasant, slight confusion noted. Avg PO intake 69% of meals since adm, meeting nutritional needs. Pt stated good appetite. Pt is edentulous, denied difficulties eating, deneid sore jaw. Pt denied nutritional concerns at this time. Pt appeared lean, mild wasting to chest and shoudlers noted. Current Diet Order/ Nutrition Support Regular, cranberry juice TID Pertinent Medications Vitamin C, Colace, Iron, Culturelle, MOM, Remeron, Fleet Enema Pertinent Labs Reviewed. Nutritional Hx/Data Height 1.68 m Height (Calculated Centimeters) 167.6 Current Weight (lbs) 59.511 kg Weight (Calculated Kilograms) 59.5 Weight (Calculated Grams) 78003.3 [place] Body Weight 142 Weight Status Approriate GI Symptoms Usual diet at home [facility]: regular Skin Integrity/Comment: Andrae 16. Current %PO Fair (50-74%) Estimated Nutritional Goals BEE in Kcals: Using Current wt Calories/Kcals/Kg CBW 131.2lb/59.6kg Kcals Calculated 1490-1788kcal (25-30kcal/kg) Protein: Using Current wt Protein Calculated 60g (1g/kg) Fluid: ml 1490-1788ml (1ml/kcal) Nutritional Problem 1. Problem Problem No nutritional problem at this time. Intervention/Recommendation Comments 1. Continue with current diet order. Avg PO intake is adequate. Expected Outcomes/Goals Expected Outcomes/Goals 1. PO intake conitnue to meet at least 75% of estimated nutritional needs.
[2017-07-08] MEDS: Hydrocodone/APAP 5mg/325mg Tab PO PRN (16:26)
--- NOTE | 2017-07-09 02:17 | Progress Notes ---
DATE: 07/08/2017 Case was discussed with staff of the patient, reviewed records. The patient continues to stay in bed. He continues to be unpredictable, impulsive, needing redirection. He has been compliant with the medication with no side effects, no sedation, no nausea, and no extrapyramidal symptoms. He is on Depakote and is on Zyprexa and mirtazapine with no side effects, no sedation, no nausea, and no extrapyramidal symptoms. We will continue to work with the patient in group therapy, milieu therapy, and adjust the medication as needed. JOB# [id number]
--- NOTE | 2017-07-09 03:59 | Admit Criteria Form ---
Admit Criteria Forms - Admit Criteria Diagnosis: URINARY COMPLICATIONS Clinical Indications for Inpatient Care (Place 'X' for any and all applicable criteria): Ongoing inpatient care may be needed for Urinary complications with 1 or more of the following: [ ]I. Reduced urine output (eg, despite adequate hydration) [ ]II. Renal failure. (Also use Renal Failure: Common Complications and Conditions as appropriate) [ ]III. Urinary retention requiring drainage or surgery(19)(20)(21)(33)(34) [ ]IV. Postobstructive diuresis requiring close monitoring of urine output and intravenous compensation for excessive fluid losses(35) [X ]V. Urinary tract infection requiring inpatient care as indicated by ANY ONE of the following(8)(19)(20): [ ]a) Hemodynamic instability [ ]b) Severe symptoms (eg, high fever, severe pain) [ ]c) Vomiting or dehydration requiring ongoing inpatient care [X ]d) IV antibiotic needs that cannot be managed at lower level of care [ ]e) Obstruction of collecting system by stone or tumor Extended stay beyond goal length of stay for primary condition may be needed until ALL of the following are present(3)(4)(5)(8): [ ]a) Renal function (creatinine) at baseline, or daily decreases in creatinine consistent with renal function return [ ]b) Voiding adequately or with urinary catheter or percutaneous suprapubic tube and management regimen in place that is performable at lower level of care. [ ]c) Urine output adequate [ ]d) Fever absent or resolving [ ]e) Infection absent or treatable at next level of care The original [employer] content created by [employer] has been revised. The portions of the content which have been revised are identified through the use of italic text or in bold, and [facility] has neither reviewed nor approved the modified material. All other unmodified content is copyright [employer] Please see references footnoted in the original [employer] [facility] edition 2017 Admit Criteria Met?: Yes
[2017-07-09] MEDS: Multivitamin w/ Minerals Tab PO SCH (08:57)
[2017-07-09] MEDS: Aspirin 81mg Chewable Tab PO SCH (08:57)
[2017-07-09] MEDS: Lactobacillus Rhamnosus 10 Billion CFU Capsule PO SCH (08:57)
[2017-07-09] MEDS: Ferrous Sulfate 325 MG TAB PO SCH ×3 (08:57→20:34)
--- NOTE | 2017-07-09 21:19 | Internal Medicine Prog Note ---
Internal Medicine Subjective - Subjective Service Date: 07/09/17 Patient seen and examined:: with staff Patient is:: awake, in bed, talking, confused Per staff patient has:: no adverse event Internal Medicine Objective - Results Result Diagrams: 07/03/17 20:54 07/03/17 20:54 Recent Labs: Laboratory Last Values WBC 7.1 Th/cmm (4.8-10.8) 07/03/17 20:54 RBC 4.74 Mil/cmm (3.80-5.80) 07/03/17 20:54 Hgb 14.7 gm/dL (12.6-17.4) 07/03/17 20:54 Hct 44.3 % (39.0-49.0) 07/03/17 20:54 MCV 93.4 fl (80-99) 07/03/17 20:54 MCH 30.9 pg (27.0-31.0) 07/03/17 20:54 MCHC Differential 33.1 pg (28.0-36.0) 07/03/17 20:54 RDW 14.1 % (11.5-20.0) 07/03/17 20:54 Plt Count 206 Th/cmm (150-400) 07/03/17 20:54 MPV 8.4 fl 07/03/17 20:54 Neutrophils % 57.5 % (40.0-80.0) 07/03/17 20:54 Lymphocytes % 29.4 % (20.0-50.0) 07/03/17 20:54 Monocytes % 7.7 % (2.0-10.0) 07/03/17 20:54 Eosinophils % 2.7 % (0.0-5.0) 07/03/17 20:54 Basophils % 2.7 % (0.0-2.0) H 07/03/17 20:54 Sodium 137 mEq/L (136-145) 07/03/17 20:54 Potassium 4.3 mEq/L (3.5-5.1) 07/03/17 20:54 Chloride 105 mEq/L (98-107) 07/03/17 20:54 Carbon Dioxide 28.7 mEq/L (21.0-31.0) 07/03/17 20:54 Anion Gap 7.6 (7.0-16.0) 07/03/17 20:54 BUN 25 mg/dL (7-25) 07/03/17 20:54 Creatinine 0.9 mg/dL (0.7-1.3) 07/03/17 20:54 Est GFR ( Amer) > 60.0 ml/min (>90) 07/03/17 20:54 Est GFR (Non-Af Amer) > 60.0 ml/min 07/03/17 20:54 BUN/Creatinine Ratio 27.8 07/03/17 20:54 Glucose 103 mg/dL (70-105) 07/03/17 20:54 Calcium 10.0 mg/dL (8.6-10.3) 07/03/17 20:54 Total Bilirubin 0.2 mg/dL (0.3-1.0) L 07/03/17 20:54 AST 19 U/L (13-39) 07/03/17 20:54 ALT 15 U/L (7-52) 07/03/17 20:54 Alkaline Phosphatase 88 U/L (34-104) 07/03/17 20:54 Total Protein 6.7 gm/dL (6.0-8.3) 07/03/17 20:54 Albumin 4.0 gm/dL (4.2-5.5) L 07/03/17 20:54 Globulin 2.7 gm/dL 07/03/17 20:54 Albumin/Globulin Ratio 1.5 (1.0-1.8) 07/03/17 20:54 Triglycerides 192 mg/dL (<150) H 07/03/17 20:54 Cholesterol 175 mg/dL (<200) 07/03/17 20:54 LDL Cholesterol Direct 101 mg/dL (75-193) 07/03/17 20:54 HDL Cholesterol 54 mg/dL (23-92) 07/03/17 20:54 TSH 2.72 uIU/ml (0.34-5.60) 07/03/17 20:54 Urine Source CLEAN C 07/03/17 21:20 Urine Color YELLOW 07/03/17 21:20 Urine Clarity CLOUDY (CLEAR) 07/03/17 21:20 Urine pH 6.0 (4.6 - 8.0) 07/03/17 21:20 Ur Specific [place] 1.025 (1.005-1.030) 07/03/17 21:20 Urine Protein 100 mg/dL (NEGATIVE) H 07/03/17 21:20 Urine Glucose (UA) NEGATIVE mg/dL (NEGATIVE) 07/03/17 21:20 Urine Ketones NEGATIVE mg/dL (NEGATIVE) 07/03/17 21:20 Urine Blood LARGE (NEGATIVE) H 07/03/17 21:20 Urine Nitrate NEGATIVE (NEGATIVE) 07/03/17 21:20 Urine Bilirubin NEGATIVE (NEGATIVE) 07/03/17 21:20 Urine Urobilinogen 0.2 E.U./dL (0.2 - 1.0) 07/03/17 21:20 Ur Leukocyte Esterase MODERATE (NEGATIVE) H 07/03/17 21:20 Urine RBC 25-50 /hpf (0-5) H 07/03/17 21:20 Urine WBC 25-50 /hpf (0-5) H 07/03/17 21:20 Ur Epithelial Cells NONE SEEN /lpf (FEW) 07/03/17 21:20 Urine Bacteria MODERATE /hpf (NONE SEEN) 07/03/17 21:20 Valproic Acid 90.5 ug/mL (50.0-100.0) 07/03/17 20:54 RPR NONREACTIVE (NONREACTIVE) 07/03/17 20:54 - Physical Exam Vitals and I&O: Vital Signs Temp 98 F 07/09/17 20:00 Pulse 75 07/09/17 20:00 Resp 20 07/09/17 20:00 BP 153/80 07/09/17 20:00 Pulse Ox 96 07/09/17 20:00 Intake & Output 07/09/17 07/09/17 07/10/17 06:59 18:59 06:59 Intake Total 120 Output Total 0 Balance 120 Intake: Oral 120 Output: Stool 0 Other: # Voids 3 # Bowel Movements 0 Active Medications: Current Medications Acetaminophen (Tylenol) 650 mg PO Q4HR PRN PRN Reason: Pain or Fever >101 Stop: 09/01/17 23:19 Last Admin: 07/09/17 14:47 Dose: 650 mg Acetaminophen/Hydrocodone Bitart ([place] 5mg/325mg) 1 tab PO Q6H PRN PRN Reason: Pain (Severe) Stop: 09/01/17 23:19 Last Admin: 07/08/17 16:26 Dose: 1 tab Ascorbic Acid (Vitamin C) 500 mg PO DAILY [facility] Stop: 09/02/17 08:59 Last Admin: 07/09/17 08:57 Dose: 500 mg Aspirin (Aspirin Chewable) 81 mg PO DAILY [facility] Stop: 09/02/17 08:59 Last Admin: 07/09/17 08:57 Dose: 81 mg Bisacodyl (Dulcolax 10 Mg Supp) 10 mg RC DAILY PRN PRN Reason: Constipation Stop: 09/01/17 23:19 Divalproex Sodium (Depakote Dr) 500 mg PO TID [facility] PRN Reason: Protocol Stop: 09/02/17 08:59 Last Admin: 07/09/17 20:35 Dose: 500 mg Docusate Sodium (Colace) 100 mg PO BID [facility] Stop: 09/02/17 08:59 Last Admin: 07/09/17 16:10 Dose: 100 mg Donepezil HCl (Aricept) 5 mg PO HS [facility] Stop: 09/07/17 20:59 Ferrous Sulfate (Iron) 325 mg PO TID [facility] Stop: 09/02/17 08:59 Last Admin: 07/09/17 20:34 Dose: 325 mg Lactobacillus Rhamnosus (Culturelle) 1 each PO DAILY [facility] Stop: 09/06/17 08:59 Last Admin: 07/09/17 08:57 Dose: 1 each Magnesium Hydroxide (Milk Of Magnesia) 30 ml PO HS PRN PRN Reason: Constipation Stop: 09/01/17 23:19 Metoprolol Tartrate (Lopressor) 25 mg PO BID [facility] Stop: 09/02/17 08:59 Last Admin: 07/09/17 16:08 Dose: Not Given Mirtazapine (Remeron) 30 mg PO HS [facility] Stop: 09/02/17 20:59 Last Admin: 07/09/17 20:34 Dose: 30 mg Miscellaneous (Probiotic Screen) 1 ea MC PRN PRN PRN Reason: PROTOCOL Stop: 09/05/17 17:59 Olanzapine (Zyprexa) 10 mg PO HS [facility] PRN Reason: Protocol Stop: 09/02/17 20:59 Last Admin: 07/09/17 20:35 Dose: 10 mg Sodium Phosphate (Fleet Enema) 135 ml RC Q48H PRN PRN Reason: Constipation Stop: 09/01/17 23:19 General: demented HEENT: NC/AT, PERRLA, EOMI, anicteric sclerae, throat clear Neck: No JVD, No thyromegaly, +2 carotid pulse wo bruit, No LAD, + JVD Lungs: CTAB Cardiovascular: RRR, Normal S1, Normal S2, without murmur Abdomen: soft, non-tender, non-distended Extremities: clear Neurological: no change Internal Medicine Assmt/Plan - Assessment Assessment: 1.DEPRESSION. 2.HTNT 3.DEMENTIA - Plan Plan: CONTINUE ON current medication and diet. Nutritional Asmnt/Malnutr-PDOC - Dietary Evaluation Malnutrition Findings (Please click <Entered> for more info): Nutritional Asmnt/Malnutrition Start: 07/07/17 18: 41 Text: Status: Complete Freq: Document 07/07/17 18:41 GSUN (Rec: 07/07/17 18:43 GSUN [email or web address]) Nutritional Asmnt/Malnutrition Patient General Information Nutritional Screening Moderate Risk Screening Diagnosis Major depression, recurrent with psychosis and dementia Pertinent Medical Hx/Surgical Hx HTN, dementia, depression psychosis Subjective Information 66 year old from SNF. Spoke to pt resting in bed. Pt was pleasant, slight confusion noted. Avg PO intake 69% of meals since adm, meeting nutritional needs. Pt stated good appetite. Pt is edentulous, denied difficulties eating, deneid sore jaw. Pt denied nutritional concerns at this time. Pt appeared lean, mild wasting to chest and shoudlers noted. Current Diet Order/ Nutrition Support Regular, cranberry juice TID Pertinent Medications Vitamin C, Colace, Iron, Culturelle, MOM, Remeron, Fleet Enema Pertinent Labs Reviewed. Nutritional Hx/Data Height 1.68 m Height (Calculated Centimeters) 167.6 Current Weight (lbs) 59.511 kg Weight (Calculated Kilograms) 59.5 Weight (Calculated Grams) 56439.3 [place] Body Weight 142 Weight Status Approriate GI Symptoms Usual diet at home [facility]: regular Skin Integrity/Comment: Andrae 16. Current %PO Fair (50-74%) Estimated Nutritional Goals BEE in Kcals: Using Current wt Calories/Kcals/Kg CBW 131.2lb/59.6kg Kcals Calculated 1490-1788kcal (25-30kcal/kg) Protein: Using Current wt Protein Calculated 60g (1g/kg) Fluid: ml 1490-1788ml (1ml/kcal) Nutritional Problem 1. Problem Problem No nutritional problem at this time. Intervention/Recommendation Comments 1. Continue with current diet order. Avg PO intake is adequate. Expected Outcomes/Goals Expected Outcomes/Goals 1. PO intake conitnue to meet at least 75% of estimated nutritional needs.
--- NOTE | 2017-07-10 00:41 | Progress Notes ---
DATE: 07/09/2017 Case was discussed with staff of the patient, reviewed records. The patient continues to stay in bed, continues to be internally preoccupied. Unable to make safe plan for self-care, still unpredictable, impulsive needing redirection. He cannot make safe plan for self-care, demented, and confused. I will be adding Aricept to his medication to help with his thought process and memory and will continue to work with the patient in group therapy, milieu therapy, and adjust medications as needed. JOB# [id number]
[2017-07-10] MEDS: Ferrous Sulfate 325 MG TAB PO SCH ×3 (09:14→20:34)
[2017-07-10] MEDS: Aspirin 81mg Chewable Tab PO SCH (09:14)
[2017-07-10] MEDS: Multivitamin w/ Minerals Tab PO SCH (09:14)
[2017-07-10] MEDS: Lactobacillus Rhamnosus 10 Billion CFU Capsule PO SCH (09:14)
[2017-07-10] MEDS: Hydrocodone/APAP 5mg/325mg Tab PO PRN (09:55)
--- NOTE | 2017-07-10 21:54 | Internal Medicine Prog Note ---
Internal Medicine Subjective - Subjective Service Date: 07/10/17 Patient seen and examined:: with staff Patient is:: awake, in bed, talking, confused Per staff patient has:: no adverse event Internal Medicine Objective - Results Result Diagrams: 07/03/17 20:54 07/03/17 20:54 Recent Labs: Laboratory Last Values WBC 7.1 Th/cmm (4.8-10.8) 07/03/17 20:54 RBC 4.74 Mil/cmm (3.80-5.80) 07/03/17 20:54 Hgb 14.7 gm/dL (12.6-17.4) 07/03/17 20:54 Hct 44.3 % (39.0-49.0) 07/03/17 20:54 MCV 93.4 fl (80-99) 07/03/17 20:54 MCH 30.9 pg (27.0-31.0) 07/03/17 20:54 MCHC Differential 33.1 pg (28.0-36.0) 07/03/17 20:54 RDW 14.1 % (11.5-20.0) 07/03/17 20:54 Plt Count 206 Th/cmm (150-400) 07/03/17 20:54 MPV 8.4 fl 07/03/17 20:54 Neutrophils % 57.5 % (40.0-80.0) 07/03/17 20:54 Lymphocytes % 29.4 % (20.0-50.0) 07/03/17 20:54 Monocytes % 7.7 % (2.0-10.0) 07/03/17 20:54 Eosinophils % 2.7 % (0.0-5.0) 07/03/17 20:54 Basophils % 2.7 % (0.0-2.0) H 07/03/17 20:54 Sodium 137 mEq/L (136-145) 07/03/17 20:54 Potassium 4.3 mEq/L (3.5-5.1) 07/03/17 20:54 Chloride 105 mEq/L (98-107) 07/03/17 20:54 Carbon Dioxide 28.7 mEq/L (21.0-31.0) 07/03/17 20:54 Anion Gap 7.6 (7.0-16.0) 07/03/17 20:54 BUN 25 mg/dL (7-25) 07/03/17 20:54 Creatinine 0.9 mg/dL (0.7-1.3) 07/03/17 20:54 Est GFR ( Amer) > 60.0 ml/min (>90) 07/03/17 20:54 Est GFR (Non-Af Amer) > 60.0 ml/min 07/03/17 20:54 BUN/Creatinine Ratio 27.8 07/03/17 20:54 Glucose 103 mg/dL (70-105) 07/03/17 20:54 Calcium 10.0 mg/dL (8.6-10.3) 07/03/17 20:54 Total Bilirubin 0.2 mg/dL (0.3-1.0) L 07/03/17 20:54 AST 19 U/L (13-39) 07/03/17 20:54 ALT 15 U/L (7-52) 07/03/17 20:54 Alkaline Phosphatase 88 U/L (34-104) 07/03/17 20:54 Total Protein 6.7 gm/dL (6.0-8.3) 07/03/17 20:54 Albumin 4.0 gm/dL (4.2-5.5) L 07/03/17 20:54 Globulin 2.7 gm/dL 07/03/17 20:54 Albumin/Globulin Ratio 1.5 (1.0-1.8) 07/03/17 20:54 Triglycerides 192 mg/dL (<150) H 07/03/17 20:54 Cholesterol 175 mg/dL (<200) 07/03/17 20:54 LDL Cholesterol Direct 101 mg/dL (75-193) 07/03/17 20:54 HDL Cholesterol 54 mg/dL (23-92) 07/03/17 20:54 TSH 2.72 uIU/ml (0.34-5.60) 07/03/17 20:54 Urine Source CLEAN C 07/03/17 21:20 Urine Color YELLOW 07/03/17 21:20 Urine Clarity CLOUDY (CLEAR) 07/03/17 21:20 Urine pH 6.0 (4.6 - 8.0) 07/03/17 21:20 Ur Specific [place] 1.025 (1.005-1.030) 07/03/17 21:20 Urine Protein 100 mg/dL (NEGATIVE) H 07/03/17 21:20 Urine Glucose (UA) NEGATIVE mg/dL (NEGATIVE) 07/03/17 21:20 Urine Ketones NEGATIVE mg/dL (NEGATIVE) 07/03/17 21:20 Urine Blood LARGE (NEGATIVE) H 07/03/17 21:20 Urine Nitrate NEGATIVE (NEGATIVE) 07/03/17 21:20 Urine Bilirubin NEGATIVE (NEGATIVE) 07/03/17 21:20 Urine Urobilinogen 0.2 E.U./dL (0.2 - 1.0) 07/03/17 21:20 Ur Leukocyte Esterase MODERATE (NEGATIVE) H 07/03/17 21:20 Urine RBC 25-50 /hpf (0-5) H 07/03/17 21:20 Urine WBC 25-50 /hpf (0-5) H 07/03/17 21:20 Ur Epithelial Cells NONE SEEN /lpf (FEW) 07/03/17 21:20 Urine Bacteria MODERATE /hpf (NONE SEEN) 07/03/17 21:20 Valproic Acid 90.5 ug/mL (50.0-100.0) 07/03/17 20:54 RPR NONREACTIVE (NONREACTIVE) 07/03/17 20:54 - Physical Exam Vitals and I&O: Vital Signs Temp 97.6 F 07/10/17 16:40 Pulse 64 07/10/17 16:40 Resp 20 07/10/17 16:40 BP 122/79 07/10/17 16:40 Pulse Ox 98 07/10/17 16:40 Intake & Output 07/10/17 07/10/17 07/11/17 06:59 18:59 06:59 Intake Total 120 900 Output Total 600 Balance -480 900 Intake: Oral 120 900 Output: Urine 600 Active Medications: Current Medications Acetaminophen (Tylenol) 650 mg PO Q4HR PRN PRN Reason: Pain or Fever >101 Stop: 09/01/17 23:19 Last Admin: 07/09/17 14:47 Dose: 650 mg Acetaminophen/Hydrocodone Bitart ([place] 5mg/325mg) 1 tab PO Q6H PRN PRN Reason: Pain (Severe) Stop: 09/01/17 23:19 Last Admin: 07/10/17 09:55 Dose: 1 tab Ascorbic Acid (Vitamin C) 500 mg PO DAILY [facility] Stop: 09/02/17 08:59 Last Admin: 07/10/17 09:14 Dose: 500 mg Aspirin (Aspirin Chewable) 81 mg PO DAILY [facility] Stop: 09/02/17 08:59 Last Admin: 07/10/17 09:14 Dose: 81 mg Bisacodyl (Dulcolax 10 Mg Supp) 10 mg RC DAILY PRN PRN Reason: Constipation Stop: 09/01/17 23:19 Divalproex Sodium (Depakote Dr) 500 mg PO TID [facility] PRN Reason: Protocol Stop: 09/02/17 08:59 Last Admin: 07/10/17 20:33 Dose: 500 mg Docusate Sodium (Colace) 100 mg PO BID [facility] Stop: 09/02/17 08:59 Last Admin: 07/10/17 09:14 Dose: 100 mg Donepezil HCl (Aricept) 5 mg PO HS [facility] Stop: 09/07/17 20:59 Last Admin: 07/10/17 20:34 Dose: 5 mg Ferrous Sulfate (Iron) 325 mg PO TID [facility] Stop: 09/02/17 08:59 Last Admin: 07/10/17 20:34 Dose: 325 mg Lactobacillus Rhamnosus (Culturelle) 1 each PO DAILY [facility] Stop: 09/06/17 08:59 Last Admin: 07/10/17 09:14 Dose: 1 each Magnesium Hydroxide (Milk Of Magnesia) 30 ml PO HS PRN PRN Reason: Constipation Stop: 09/01/17 23:19 Metoprolol Tartrate (Lopressor) 25 mg PO BID [facility] Stop: 09/02/17 08:59 Last Admin: 07/10/17 08:04 Dose: Not Given Mirtazapine (Remeron) 30 mg PO HS [facility] Stop: 09/02/17 20:59 Last Admin: 07/10/17 20:33 Dose: 30 mg Miscellaneous (Probiotic Screen) 1 ea MC PRN PRN PRN Reason: PROTOCOL Stop: 09/05/17 17:59 Olanzapine (Zyprexa) 10 mg PO HS [facility] PRN Reason: Protocol Stop: 09/02/17 20:59 Last Admin: 07/10/17 20:33 Dose: 10 mg Sodium Phosphate (Fleet Enema) 135 ml RC Q48H PRN PRN Reason: Constipation Stop: 09/01/17 23:19 General: demented HEENT: NC/AT, PERRLA, EOMI, anicteric sclerae, throat clear Neck: No JVD, No thyromegaly, +2 carotid pulse wo bruit, No LAD, + JVD Lungs: CTAB Cardiovascular: RRR, Normal S1, Normal S2, without murmur Abdomen: soft, non-tender, non-distended Extremities: clear Neurological: no change Internal Medicine Assmt/Plan - Assessment Assessment: 1.DEPRESSION. 2.HTNT 3.DEMENTIA - Plan Plan: CONTINUE ON current medication and diet. Nutritional Asmnt/Malnutr-PDOC - Dietary Evaluation Malnutrition Findings (Please click <Entered> for more info): Nutritional Asmnt/Malnutrition Start: 07/07/17 18: 41 Text: Status: Complete Freq: Document 07/07/17 18:41 GSUN (Rec: 07/07/17 18:43 [email or web address] [email or web address]) Nutritional Asmnt/Malnutrition Patient General Information Nutritional Screening Moderate Risk Screening Diagnosis Major depression, recurrent with psychosis and dementia Pertinent Medical Hx/Surgical Hx HTN, dementia, depression psychosis Subjective Information 66 year old from SNF. Spoke to pt resting in bed. Pt was pleasant, slight confusion noted. Avg PO intake 69% of meals since adm, meeting nutritional needs. Pt stated good appetite. Pt is edentulous, denied difficulties eating, deneid sore jaw. Pt denied nutritional concerns at this time. Pt appeared lean, mild wasting to chest and shoudlers noted. Current Diet Order/ Nutrition Support Regular, cranberry juice TID Pertinent Medications Vitamin C, Colace, Iron, Culturelle, MOM, Remeron, Fleet Enema Pertinent Labs Reviewed. Nutritional Hx/Data Height 1.68 m Height (Calculated Centimeters) 167.6 Current Weight (lbs) 59.511 kg Weight (Calculated Kilograms) 59.5 Weight (Calculated Grams) 32176.3 [place] Body Weight 142 Weight Status Approriate GI Symptoms Usual diet at home [facility]: regular Skin Integrity/Comment: Andrae 16. Current %PO Fair (50-74%) Estimated Nutritional Goals BEE in Kcals: Using Current wt Calories/Kcals/Kg CBW 131.2lb/59.6kg Kcals Calculated 1490-1788kcal (25-30kcal/kg) Protein: Using Current wt Protein Calculated 60g (1g/kg) Fluid: ml 1490-1788ml (1ml/kcal) Nutritional Problem 1. Problem Problem No nutritional problem at this time. Intervention/Recommendation Comments 1. Continue with current diet order. Avg PO intake is adequate. Expected Outcomes/Goals Expected Outcomes/Goals 1. PO intake conitnue to meet at least 75% of estimated nutritional needs.
--- NOTE | 2017-07-10 23:12 | Progress Notes ---
DATE: 07/10/2017 Case was discussed with staff of the patient, reviewed records. The patient continues to stay in bed, but he was feeding himself today. He is easier to be redirected. He is sleeping well. He is eating well. No side effects with the medication, no sedation, no nausea. He is compliant with the medication with no side effects. I initiated Aricept on him yesterday and we will continue to work with the patient in group therapy, milieu therapy, and adjust medication as needed. JOB# [id number]
[2017-07-11] MEDS: Multivitamin w/ Minerals Tab PO SCH (09:50)
[2017-07-11] MEDS: Ferrous Sulfate 325 MG TAB PO SCH ×3 (09:50→21:05)
[2017-07-11] MEDS: Aspirin 81mg Chewable Tab PO SCH (09:50)
[2017-07-11] MEDS: Lactobacillus Rhamnosus 10 Billion CFU Capsule PO SCH (09:50)
[2017-07-11] MEDS: Hydrocodone/APAP 5mg/325mg Tab PO PRN ×2 (10:15→21:12)
--- NOTE | 2017-07-11 15:19 | Internal Medicine Prog Note ---
Internal Medicine Subjective - Subjective Service Date: 07/11/17 Patient seen and examined:: without staff Patient is:: awake, in bed, talking, confused Per staff patient has:: no adverse event Internal Medicine Objective - Results Result Diagrams: 07/03/17 20:54 07/03/17 20:54 Recent Labs: Laboratory Last Values WBC 7.1 Th/cmm (4.8-10.8) 07/03/17 20:54 RBC 4.74 Mil/cmm (3.80-5.80) 07/03/17 20:54 Hgb 14.7 gm/dL (12.6-17.4) 07/03/17 20:54 Hct 44.3 % (39.0-49.0) 07/03/17 20:54 MCV 93.4 fl (80-99) 07/03/17 20:54 MCH 30.9 pg (27.0-31.0) 07/03/17 20:54 MCHC Differential 33.1 pg (28.0-36.0) 07/03/17 20:54 RDW 14.1 % (11.5-20.0) 07/03/17 20:54 Plt Count 206 Th/cmm (150-400) 07/03/17 20:54 MPV 8.4 fl 07/03/17 20:54 Neutrophils % 57.5 % (40.0-80.0) 07/03/17 20:54 Lymphocytes % 29.4 % (20.0-50.0) 07/03/17 20:54 Monocytes % 7.7 % (2.0-10.0) 07/03/17 20:54 Eosinophils % 2.7 % (0.0-5.0) 07/03/17 20:54 Basophils % 2.7 % (0.0-2.0) H 07/03/17 20:54 Sodium 137 mEq/L (136-145) 07/03/17 20:54 Potassium 4.3 mEq/L (3.5-5.1) 07/03/17 20:54 Chloride 105 mEq/L (98-107) 07/03/17 20:54 Carbon Dioxide 28.7 mEq/L (21.0-31.0) 07/03/17 20:54 Anion Gap 7.6 (7.0-16.0) 07/03/17 20:54 BUN 25 mg/dL (7-25) 07/03/17 20:54 Creatinine 0.9 mg/dL (0.7-1.3) 07/03/17 20:54 Est GFR ( Amer) > 60.0 ml/min (>90) 07/03/17 20:54 Est GFR (Non-Af Amer) > 60.0 ml/min 07/03/17 20:54 BUN/Creatinine Ratio 27.8 07/03/17 20:54 Glucose 103 mg/dL (70-105) 07/03/17 20:54 Calcium 10.0 mg/dL (8.6-10.3) 07/03/17 20:54 Total Bilirubin 0.2 mg/dL (0.3-1.0) L 07/03/17 20:54 AST 19 U/L (13-39) 07/03/17 20:54 ALT 15 U/L (7-52) 07/03/17 20:54 Alkaline Phosphatase 88 U/L (34-104) 07/03/17 20:54 Total Protein 6.7 gm/dL (6.0-8.3) 07/03/17 20:54 Albumin 4.0 gm/dL (4.2-5.5) L 07/03/17 20:54 Globulin 2.7 gm/dL 07/03/17 20:54 Albumin/Globulin Ratio 1.5 (1.0-1.8) 07/03/17 20:54 Triglycerides 192 mg/dL (<150) H 07/03/17 20:54 Cholesterol 175 mg/dL (<200) 07/03/17 20:54 LDL Cholesterol Direct 101 mg/dL (75-193) 07/03/17 20:54 HDL Cholesterol 54 mg/dL (23-92) 07/03/17 20:54 TSH 2.72 uIU/ml (0.34-5.60) 07/03/17 20:54 Urine Source CLEAN C 07/03/17 21:20 Urine Color YELLOW 07/03/17 21:20 Urine Clarity CLOUDY (CLEAR) 07/03/17 21:20 Urine pH 6.0 (4.6 - 8.0) 07/03/17 21:20 Ur Specific [place] 1.025 (1.005-1.030) 07/03/17 21:20 Urine Protein 100 mg/dL (NEGATIVE) H 07/03/17 21:20 Urine Glucose (UA) NEGATIVE mg/dL (NEGATIVE) 07/03/17 21:20 Urine Ketones NEGATIVE mg/dL (NEGATIVE) 07/03/17 21:20 Urine Blood LARGE (NEGATIVE) H 07/03/17 21:20 Urine Nitrate NEGATIVE (NEGATIVE) 07/03/17 21:20 Urine Bilirubin NEGATIVE (NEGATIVE) 07/03/17 21:20 Urine Urobilinogen 0.2 E.U./dL (0.2 - 1.0) 07/03/17 21:20 Ur Leukocyte Esterase MODERATE (NEGATIVE) H 07/03/17 21:20 Urine RBC 25-50 /hpf (0-5) H 07/03/17 21:20 Urine WBC 25-50 /hpf (0-5) H 07/03/17 21:20 Ur Epithelial Cells NONE SEEN /lpf (FEW) 07/03/17 21:20 Urine Bacteria MODERATE /hpf (NONE SEEN) 07/03/17 21:20 Valproic Acid 90.5 ug/mL (50.0-100.0) 07/03/17 20:54 RPR NONREACTIVE (NONREACTIVE) 07/03/17 20:54 - Physical Exam Vitals and I&O: Vital Signs Temp 97.8 F 07/11/17 15:03 Pulse 62 07/11/17 15:03 Resp 18 07/11/17 15:03 BP 121/51 07/11/17 15:03 Pulse Ox 98 07/11/17 15:03 Intake & Output 07/10/17 07/11/17 07/11/17 18:59 06:59 18:59 Intake Total 900 120 Output Total 550 Balance 900 -430 Intake: Oral 900 120 Output: Urine 550 Active Medications: Current Medications Acetaminophen (Tylenol) 650 mg PO Q4HR PRN PRN Reason: Pain or Fever >101 Stop: 09/01/17 23:19 Last Admin: 07/09/17 14:47 Dose: 650 mg Acetaminophen/Hydrocodone Bitart ([place] 5mg/325mg) 1 tab PO Q6H PRN PRN Reason: Pain (Severe) Stop: 09/01/17 23:19 Last Admin: 07/11/17 10:15 Dose: 1 tab Ascorbic Acid (Vitamin C) 500 mg PO DAILY [facility] Stop: 09/02/17 08:59 Last Admin: 07/11/17 09:50 Dose: 500 mg Aspirin (Aspirin Chewable) 81 mg PO DAILY [facility] Stop: 09/02/17 08:59 Last Admin: 07/11/17 09:50 Dose: 81 mg Bisacodyl (Dulcolax 10 Mg Supp) 10 mg RC DAILY PRN PRN Reason: Constipation Stop: 09/01/17 23:19 Divalproex Sodium (Depakote Dr) 500 mg PO TID [facility] PRN Reason: Protocol Stop: 09/02/17 08:59 Last Admin: 07/11/17 14:09 Dose: 500 mg Docusate Sodium (Colace) 100 mg PO BID [facility] Stop: 09/02/17 08:59 Last Admin: 07/11/17 09:50 Dose: 100 mg Donepezil HCl (Aricept) 5 mg PO HS [facility] Stop: 09/07/17 20:59 Last Admin: 07/10/17 20:34 Dose: 5 mg Ferrous Sulfate (Iron) 325 mg PO TID [facility] Stop: 09/02/17 08:59 Last Admin: 07/11/17 14:09 Dose: 325 mg Lactobacillus Rhamnosus (Culturelle) 1 each PO DAILY [facility] Stop: 09/06/17 08:59 Last Admin: 07/11/17 09:50 Dose: 1 each Magnesium Hydroxide (Milk Of Magnesia) 30 ml PO HS PRN PRN Reason: Constipation Stop: 09/01/17 23:19 Metoprolol Tartrate (Lopressor) 25 mg PO BID [facility] Stop: 09/02/17 08:59 Last Admin: 07/11/17 09:51 Dose: Not Given Mirtazapine (Remeron) 30 mg PO HS [facility] Stop: 09/02/17 20:59 Last Admin: 07/10/17 20:33 Dose: 30 mg Miscellaneous (Probiotic Screen) 1 ea MC PRN PRN PRN Reason: PROTOCOL Stop: 09/05/17 17:59 Olanzapine 10 mg/ Olanzapine 2 (.5 mg) 12.5 mg PO HS [facility] Stop: 09/09/17 20:59 Sodium Phosphate (Fleet Enema) 135 ml RC Q48H PRN PRN Reason: Constipation Stop: 09/01/17 23:19 General: demented HEENT: NC/AT, PERRLA, EOMI, anicteric sclerae, throat clear Neck: No JVD, No thyromegaly, +2 carotid pulse wo bruit, No LAD, + JVD Lungs: CTAB Cardiovascular: RRR, Normal S1, Normal S2, without murmur Abdomen: soft, non-tender, non-distended Extremities: clear Neurological: no change Internal Medicine Assmt/Plan - Assessment Assessment: 1.DEPRESSION. 2.HTNT 3.DEMENTIA - Plan Plan: CONTINUE ON current medication and diet. Nutritional Asmnt/Malnutr-PDOC - Dietary Evaluation Malnutrition Findings (Please click <Entered> for more info): Nutritional Asmnt/Malnutrition Start: 07/07/17 18: 41 Text: Status: Complete Freq: Document 07/07/17 18:41 GSUN (Rec: 07/07/17 18:43 [email or web address] [email or web address]) Nutritional Asmnt/Malnutrition Patient General Information Nutritional Screening Moderate Risk Screening Diagnosis Major depression, recurrent with psychosis and dementia Pertinent Medical Hx/Surgical Hx HTN, dementia, depression psychosis Subjective Information 66 year old from SNF. Spoke to pt resting in bed. Pt was pleasant, slight confusion noted. Avg PO intake 69% of meals since adm, meeting nutritional needs. Pt stated good appetite. Pt is edentulous, denied difficulties eating, deneid sore jaw. Pt denied nutritional concerns at this time. Pt appeared lean, mild wasting to chest and shoudlers noted. Current Diet Order/ Nutrition Support Regular, cranberry juice TID Pertinent Medications Vitamin C, Colace, Iron, Culturelle, MOM, Remeron, Fleet Enema Pertinent Labs Reviewed. Nutritional Hx/Data Height 1.68 m Height (Calculated Centimeters) 167.6 Current Weight (lbs) 59.511 kg Weight (Calculated Kilograms) 59.5 Weight (Calculated Grams) 10198.3 [place] Body Weight 142 Weight Status Approriate GI Symptoms Usual diet at home [facility]: regular Skin Integrity/Comment: Andrae 16. Current %PO Fair (50-74%) Estimated Nutritional Goals BEE in Kcals: Using Current wt Calories/Kcals/Kg CBW 131.2lb/59.6kg Kcals Calculated 1490-1788kcal (25-30kcal/kg) Protein: Using Current wt Protein Calculated 60g (1g/kg) Fluid: ml 1490-1788ml (1ml/kcal) Nutritional Problem 1. Problem Problem No nutritional problem at this time. Intervention/Recommendation Comments 1. Continue with current diet order. Avg PO intake is adequate. Expected Outcomes/Goals Expected Outcomes/Goals 1. PO intake conitnue to meet at least 75% of estimated nutritional needs.
--- NOTE | 2017-07-11 23:21 | Progress Notes ---
DATE: 07/11/2017 Case was discussed with staff of the patient, reviewed records. The patient continues to be depressed, isolating himself staying in bed, ____. Continues to have poor insight. Continues to be unable to participate in a meaningful conversation or make a safe plan for self-care. He is compliant with the medication with no side effects, no sedation, no nausea, and no extrapyramidal symptoms. I will be increasing his Zyprexa dose to 12.5 mg at bedtime and so far no side effects, no sedation, no nausea, and no extrapyramidal symptoms. We will continue the patient in group therapy and milieu therapy and adjust medication as needed. [facility]# [id number]
[2017-07-12] MEDS: Multivitamin w/ Minerals Tab PO SCH (09:23)
[2017-07-12] MEDS: Lactobacillus Rhamnosus 10 Billion CFU Capsule PO SCH (09:23)
[2017-07-12] MEDS: Ferrous Sulfate 325 MG TAB PO SCH ×3 (09:23→21:28)
[2017-07-12] MEDS: Aspirin 81mg Chewable Tab PO SCH (09:24)
--- NOTE | 2017-07-12 16:49 | General Progress Note ---
Subjective - Review of Systems Service Date: 07/12/17 Subjective: RESTING IN BED COMFORTABLY NO COMPLAINTS Objective - Results Result Diagrams: 07/03/17 20:54 07/03/17 20:54 Recent Labs: Laboratory Last Values WBC 7.1 Th/cmm (4.8-10.8) 07/03/17 20:54 RBC 4.74 Mil/cmm (3.80-5.80) 07/03/17 20:54 Hgb 14.7 gm/dL (12.6-17.4) 07/03/17 20:54 Hct 44.3 % (39.0-49.0) 07/03/17 20:54 MCV 93.4 fl (80-99) 07/03/17 20:54 MCH 30.9 pg (27.0-31.0) 07/03/17 20:54 MCHC Differential 33.1 pg (28.0-36.0) 07/03/17 20:54 RDW 14.1 % (11.5-20.0) 07/03/17 20:54 Plt Count 206 Th/cmm (150-400) 07/03/17 20:54 MPV 8.4 fl 07/03/17 20:54 Neutrophils % 57.5 % (40.0-80.0) 07/03/17 20:54 Lymphocytes % 29.4 % (20.0-50.0) 07/03/17 20:54 Monocytes % 7.7 % (2.0-10.0) 07/03/17 20:54 Eosinophils % 2.7 % (0.0-5.0) 07/03/17 20:54 Basophils % 2.7 % (0.0-2.0) H 07/03/17 20:54 Sodium 137 mEq/L (136-145) 07/03/17 20:54 Potassium 4.3 mEq/L (3.5-5.1) 07/03/17 20:54 Chloride 105 mEq/L (98-107) 07/03/17 20:54 Carbon Dioxide 28.7 mEq/L (21.0-31.0) 07/03/17 20:54 Anion Gap 7.6 (7.0-16.0) 07/03/17 20:54 BUN 25 mg/dL (7-25) 07/03/17 20:54 Creatinine 0.9 mg/dL (0.7-1.3) 07/03/17 20:54 Est GFR ( Amer) > 60.0 ml/min (>90) 07/03/17 20:54 Est GFR (Non-Af Amer) > 60.0 ml/min 07/03/17 20:54 BUN/Creatinine Ratio 27.8 07/03/17 20:54 Glucose 103 mg/dL (70-105) 07/03/17 20:54 Calcium 10.0 mg/dL (8.6-10.3) 07/03/17 20:54 Total Bilirubin 0.2 mg/dL (0.3-1.0) L 07/03/17 20:54 AST 19 U/L (13-39) 07/03/17 20:54 ALT 15 U/L (7-52) 07/03/17 20:54 Alkaline Phosphatase 88 U/L (34-104) 07/03/17 20:54 Total Protein 6.7 gm/dL (6.0-8.3) 07/03/17 20:54 Albumin 4.0 gm/dL (4.2-5.5) L 07/03/17 20:54 Globulin 2.7 gm/dL 07/03/17 20:54 Albumin/Globulin Ratio 1.5 (1.0-1.8) 07/03/17 20:54 Triglycerides 192 mg/dL (<150) H 07/03/17 20:54 Cholesterol 175 mg/dL (<200) 07/03/17 20:54 LDL Cholesterol Direct 101 mg/dL (75-193) 07/03/17 20:54 HDL Cholesterol 54 mg/dL (23-92) 07/03/17 20:54 TSH 2.72 uIU/ml (0.34-5.60) 07/03/17 20:54 Urine Source CLEAN C 07/03/17 21:20 Urine Color YELLOW 07/03/17 21:20 Urine Clarity CLOUDY (CLEAR) 07/03/17 21:20 Urine pH 6.0 (4.6 - 8.0) 07/03/17 21:20 Ur Specific [place] 1.025 (1.005-1.030) 07/03/17 21:20 Urine Protein 100 mg/dL (NEGATIVE) H 07/03/17 21:20 Urine Glucose (UA) NEGATIVE mg/dL (NEGATIVE) 07/03/17 21:20 Urine Ketones NEGATIVE mg/dL (NEGATIVE) 07/03/17 21:20 Urine Blood LARGE (NEGATIVE) H 07/03/17 21:20 Urine Nitrate NEGATIVE (NEGATIVE) 07/03/17 21:20 Urine Bilirubin NEGATIVE (NEGATIVE) 07/03/17 21:20 Urine Urobilinogen 0.2 E.U./dL (0.2 - 1.0) 07/03/17 21:20 Ur Leukocyte Esterase MODERATE (NEGATIVE) H 07/03/17 21:20 Urine RBC 25-50 /hpf (0-5) H 07/03/17 21:20 Urine WBC 25-50 /hpf (0-5) H 07/03/17 21:20 Ur Epithelial Cells NONE SEEN /lpf (FEW) 07/03/17 21:20 Urine Bacteria MODERATE /hpf (NONE SEEN) 07/03/17 21:20 Valproic Acid 90.5 ug/mL (50.0-100.0) 07/03/17 20:54 RPR NONREACTIVE (NONREACTIVE) 07/03/17 20:54 - Physical Exam Vitals and I&O: Vital Signs Temp 98.2 F 07/12/17 15:47 Pulse 59 07/12/17 15:47 Resp 20 07/12/17 15:47 BP 111/66 07/12/17 15:47 Pulse Ox 97 07/12/17 15:47 Intake & Output 07/11/17 07/12/17 07/12/17 18:59 06:59 18:59 Intake Total 900 360 Output Total 800 Balance 900 -440 Intake: Oral 900 360 Output: Urine 800 Active Medications: Current Medications Acetaminophen (Tylenol) 650 mg PO Q4HR PRN PRN Reason: Pain or Fever >101 Stop: 09/01/17 23:19 Last Admin: 07/12/17 15:27 Dose: 650 mg Acetaminophen/Hydrocodone Bitart ([place] 5mg/325mg) 1 tab PO Q6H PRN PRN Reason: Pain (Severe) Stop: 09/01/17 23:19 Last Admin: 07/11/17 21:12 Dose: 1 tab Ascorbic Acid (Vitamin C) 500 mg PO DAILY [facility] Stop: 09/02/17 08:59 Last Admin: 07/12/17 09:23 Dose: 500 mg Aspirin (Aspirin Chewable) 81 mg PO DAILY [facility] Stop: 09/02/17 08:59 Last Admin: 07/12/17 09:24 Dose: 81 mg Bisacodyl (Dulcolax 10 Mg Supp) 10 mg RC DAILY PRN PRN Reason: Constipation Stop: 09/01/17 23:19 Divalproex Sodium (Depakote Dr) 500 mg PO TID LUCIA PRN Reason: Protocol Stop: 09/02/17 08:59 Last Admin: 07/12/17 13:55 Dose: 500 mg Docusate Sodium (Colace) 100 mg PO BID [facility] Stop: 09/02/17 08:59 Last Admin: 07/12/17 09:22 Dose: 100 mg Donepezil HCl (Aricept) 5 mg PO HS [facility] Stop: 09/07/17 20:59 Last Admin: 07/11/17 21:06 Dose: 5 mg Ferrous Sulfate (Iron) 325 mg PO TID [facility] Stop: 09/02/17 08:59 Last Admin: 07/12/17 13:55 Dose: 325 mg Lactobacillus Rhamnosus (Culturelle) 1 each PO DAILY [facility] Stop: 09/06/17 08:59 Last Admin: 07/12/17 09:23 Dose: 1 each Magnesium Hydroxide (Milk Of Magnesia) 30 ml PO HS PRN PRN Reason: Constipation Stop: 09/01/17 23:19 Metoprolol Tartrate (Lopressor) 25 mg PO BID [facility] Stop: 09/02/17 08:59 Last Admin: 07/12/17 09:26 Dose: Not Given Mirtazapine (Remeron) 30 mg PO HS [facility] Stop: 09/02/17 20:59 Last Admin: 07/11/17 21:06 Dose: 30 mg Miscellaneous (Probiotic Screen) 1 ea MC PRN PRN PRN Reason: PROTOCOL Stop: 09/05/17 17:59 Olanzapine 10 mg/ Olanzapine 2 (.5 mg) 12.5 mg PO HS [facility] Stop: 09/09/17 20:59 Last Admin: 07/11/17 21:05 Dose: 12.5 mg Sodium Phosphate (Fleet Enema) 135 ml RC Q48H PRN PRN Reason: Constipation Stop: 09/01/17 23:19 General: Alert, No acute distress HEENT: Atraumatic, PERRLA, EOMI Neck: Supple, JVD Cardiovascular: Regular rate, Normal S1, Normal S2 Lungs: Clear to auscultation Abdomen: Bowel sounds Psych/Mental Status: Mood NL Assessment/Plan - Assessment Assessment: 1.DEPRESSION. 2.HTN 3.DEMENTIA - Plan Plan: CONT CURRENT TREATMENT Nutritional Asmnt/Malnutr-PDOC - Dietary Evaluation Malnutrition Findings (Please click <Entered> for more info): Nutritional Asmnt/Malnutrition Start: 07/07/17 18: 41 Text: Status: Complete Freq: Document 07/07/17 18:41 GSUN (Rec: 07/07/17 18:43 [email or web address] [email or web address]) Nutritional Asmnt/Malnutrition Patient General Information Nutritional Screening Moderate Risk Screening Diagnosis Major depression, recurrent with psychosis and dementia Pertinent Medical Hx/Surgical Hx HTN, dementia, depression psychosis Subjective Information 66 year old from SNF. Spoke to pt resting in bed. Pt was pleasant, slight confusion noted. Avg PO intake 69% of meals since adm, meeting nutritional needs. Pt stated good appetite. Pt is edentulous, denied difficulties eating, deneid sore jaw. Pt denied nutritional concerns at this time. Pt appeared lean, mild wasting to chest and shoudlers noted. Current Diet Order/ Nutrition Support Regular, cranberry juice TID Pertinent Medications Vitamin C, Colace, Iron, Culturelle, MOM, Remeron, Fleet Enema Pertinent Labs Reviewed. Nutritional Hx/Data Height 1.68 m Height (Calculated Centimeters) 167.6 Current Weight (lbs) 59.511 kg Weight (Calculated Kilograms) 59.5 Weight (Calculated Grams) 42796.3 [place] Body Weight 142 Weight Status Approriate GI Symptoms Usual diet at home [facility]: regular Skin Integrity/Comment: Andrae 16. Current %PO Fair (50-74%) Estimated Nutritional Goals BEE in Kcals: Using Current wt Calories/Kcals/Kg CBW 131.2lb/59.6kg Kcals Calculated 1490-1788kcal (25-30kcal/kg) Protein: Using Current wt Protein Calculated 60g (1g/kg) Fluid: ml 1490-1788ml (1ml/kcal) Nutritional Problem 1. Problem Problem No nutritional problem at this time. Intervention/Recommendation Comments 1. Continue with current diet order. Avg PO intake is adequate. Expected Outcomes/Goals Expected Outcomes/Goals 1. PO intake conitnue to meet at least 75% of estimated nutritional needs.
--- NOTE | 2017-07-12 21:35 | Progress Notes ---
DATE: 07/12/2017 Dr. Crandall is covering for Dr. Gregg. SUBJECTIVE: Chart reviewed and the patient interviewed. Also discussed the patient's condition with the staff and reviewed records and labs. The patient remains severely depressed and is still restless. The patient also is still easily agitated and easily irritable. The patient is obsessed with "pain in my penis." He said that he has been having the pain for the last year and a half. The patient also complaining of constipation and lack of bowel movements. Otherwise, no other side effects. The patient has urinary tract infection and had suprapubic catheter. The patient wants to stay in bed all the time and he still has poor insight and poor judgment. The patient also is still forgetful and repeating questions over and over. ASSESSMENT: The patient is still depressed and is still psychotic. TREATMENT PLAN: We will continue Depakote 500 mg 3 times a day and Aricept 5 mg at bedtime. Also, continue Zyprexa in a dose of 12.5 mg at bedtime with no side effects except the patient complaining of constipation. Also, continue to work on behavioral modification. JOB# [id number]
[2017-07-12] MEDS: Hydrocodone/APAP 5mg/325mg Tab PO PRN (21:44)
[2017-07-13] MEDS: Hydrocodone/APAP 5mg/325mg Tab PO PRN (07:03)
--- NOTE | 2017-07-13 07:53 | General Progress Note ---
Subjective - Review of Systems Service Date: 07/13/17 Subjective: RESTING IN BED COMFORTABLY NO COMPLAINTS Objective - Results Result Diagrams: 07/03/17 20:54 07/03/17 20:54 Recent Labs: Laboratory Last Values WBC 7.1 Th/cmm (4.8-10.8) 07/03/17 20:54 RBC 4.74 Mil/cmm (3.80-5.80) 07/03/17 20:54 Hgb 14.7 gm/dL (12.6-17.4) 07/03/17 20:54 Hct 44.3 % (39.0-49.0) 07/03/17 20:54 MCV 93.4 fl (80-99) 07/03/17 20:54 MCH 30.9 pg (27.0-31.0) 07/03/17 20:54 MCHC Differential 33.1 pg (28.0-36.0) 07/03/17 20:54 RDW 14.1 % (11.5-20.0) 07/03/17 20:54 Plt Count 206 Th/cmm (150-400) 07/03/17 20:54 MPV 8.4 fl 07/03/17 20:54 Neutrophils % 57.5 % (40.0-80.0) 07/03/17 20:54 Lymphocytes % 29.4 % (20.0-50.0) 07/03/17 20:54 Monocytes % 7.7 % (2.0-10.0) 07/03/17 20:54 Eosinophils % 2.7 % (0.0-5.0) 07/03/17 20:54 Basophils % 2.7 % (0.0-2.0) H 07/03/17 20:54 Sodium 137 mEq/L (136-145) 07/03/17 20:54 Potassium 4.3 mEq/L (3.5-5.1) 07/03/17 20:54 Chloride 105 mEq/L (98-107) 07/03/17 20:54 Carbon Dioxide 28.7 mEq/L (21.0-31.0) 07/03/17 20:54 Anion Gap 7.6 (7.0-16.0) 07/03/17 20:54 BUN 25 mg/dL (7-25) 07/03/17 20:54 Creatinine 0.9 mg/dL (0.7-1.3) 07/03/17 20:54 Est GFR ( Amer) > 60.0 ml/min (>90) 07/03/17 20:54 Est GFR (Non-Af Amer) > 60.0 ml/min 07/03/17 20:54 BUN/Creatinine Ratio 27.8 07/03/17 20:54 Glucose 103 mg/dL (70-105) 07/03/17 20:54 Calcium 10.0 mg/dL (8.6-10.3) 07/03/17 20:54 Total Bilirubin 0.2 mg/dL (0.3-1.0) L 07/03/17 20:54 AST 19 U/L (13-39) 07/03/17 20:54 ALT 15 U/L (7-52) 07/03/17 20:54 Alkaline Phosphatase 88 U/L (34-104) 07/03/17 20:54 Total Protein 6.7 gm/dL (6.0-8.3) 07/03/17 20:54 Albumin 4.0 gm/dL (4.2-5.5) L 07/03/17 20:54 Globulin 2.7 gm/dL 07/03/17 20:54 Albumin/Globulin Ratio 1.5 (1.0-1.8) 07/03/17 20:54 Triglycerides 192 mg/dL (<150) H 07/03/17 20:54 Cholesterol 175 mg/dL (<200) 07/03/17 20:54 LDL Cholesterol Direct 101 mg/dL (75-193) 07/03/17 20:54 HDL Cholesterol 54 mg/dL (23-92) 07/03/17 20:54 TSH 2.72 uIU/ml (0.34-5.60) 07/03/17 20:54 Urine Source CLEAN C 07/03/17 21:20 Urine Color YELLOW 07/03/17 21:20 Urine Clarity CLOUDY (CLEAR) 07/03/17 21:20 Urine pH 6.0 (4.6 - 8.0) 07/03/17 21:20 Ur Specific [place] 1.025 (1.005-1.030) 07/03/17 21:20 Urine Protein 100 mg/dL (NEGATIVE) H 07/03/17 21:20 Urine Glucose (UA) NEGATIVE mg/dL (NEGATIVE) 07/03/17 21:20 Urine Ketones NEGATIVE mg/dL (NEGATIVE) 07/03/17 21:20 Urine Blood LARGE (NEGATIVE) H 07/03/17 21:20 Urine Nitrate NEGATIVE (NEGATIVE) 07/03/17 21:20 Urine Bilirubin NEGATIVE (NEGATIVE) 07/03/17 21:20 Urine Urobilinogen 0.2 E.U./dL (0.2 - 1.0) 07/03/17 21:20 Ur Leukocyte Esterase MODERATE (NEGATIVE) H 07/03/17 21:20 Urine RBC 25-50 /hpf (0-5) H 07/03/17 21:20 Urine WBC 25-50 /hpf (0-5) H 07/03/17 21:20 Ur Epithelial Cells NONE SEEN /lpf (FEW) 07/03/17 21:20 Urine Bacteria MODERATE /hpf (NONE SEEN) 07/03/17 21:20 Valproic Acid 90.5 ug/mL (50.0-100.0) 07/03/17 20:54 RPR NONREACTIVE (NONREACTIVE) 07/03/17 20:54 - Physical Exam Vitals and I&O: Vital Signs Temp 98 F 07/13/17 06:39 Pulse 97 07/13/17 06:39 Resp 18 07/13/17 06:39 BP 96/71 07/13/17 06:39 Pulse Ox 96 07/13/17 06:39 Intake & Output 07/12/17 07/13/17 07/13/17 18:59 06:59 18:59 Intake Total 900 480 Output Total 1850 1700 Balance -950 -1220 Intake: Oral 900 480 Output: Urine 1850 1700 Other: # Bowel Movements 0 Active Medications: Current Medications Acetaminophen (Tylenol) 650 mg PO Q4HR PRN PRN Reason: Pain or Fever >101 Stop: 09/01/17 23:19 Last Admin: 07/12/17 15:27 Dose: 650 mg Acetaminophen/Hydrocodone Bitart ([place] 5mg/325mg) 1 tab PO Q6H PRN PRN Reason: Pain (Severe) Stop: 09/01/17 23:19 Last Admin: 07/13/17 07:03 Dose: 1 tab Ascorbic Acid (Vitamin C) 500 mg PO DAILY [facility] Stop: 09/02/17 08:59 Last Admin: 07/12/17 09:23 Dose: 500 mg Aspirin (Aspirin Chewable) 81 mg PO DAILY [facility] Stop: 09/02/17 08:59 Last Admin: 07/12/17 09:24 Dose: 81 mg Bisacodyl (Dulcolax 10 Mg Supp) 10 mg RC DAILY PRN PRN Reason: Constipation Stop: 09/01/17 23:19 Divalproex Sodium (Depakote Dr) 500 mg PO TID [facility] PRN Reason: Protocol Stop: 09/02/17 08:59 Last Admin: 07/12/17 21:28 Dose: 500 mg Docusate Sodium (Colace) 100 mg PO BID [facility] Stop: 09/02/17 08:59 Last Admin: 07/12/17 17:52 Dose: 100 mg Donepezil HCl (Aricept) 5 mg PO HS [facility] Stop: 09/07/17 20:59 Last Admin: 07/12/17 21:29 Dose: 5 mg Ferrous Sulfate (Iron) 325 mg PO TID [facility] Stop: 09/02/17 08:59 Last Admin: 07/12/17 21:28 Dose: 325 mg Lactobacillus Rhamnosus (Culturelle) 1 each PO DAILY [facility] Stop: 09/06/17 08:59 Last Admin: 07/12/17 09:23 Dose: 1 each Magnesium Hydroxide (Milk Of Magnesia) 30 ml PO HS PRN PRN Reason: Constipation Stop: 09/01/17 23:19 Metoprolol Tartrate (Lopressor) 25 mg PO BID [facility] Stop: 09/02/17 08:59 Last Admin: 07/12/17 17:36 Dose: Not Given Mirtazapine (Remeron) 30 mg PO HS [facility] Stop: 09/02/17 20:59 Last Admin: 07/12/17 21:30 Dose: 30 mg Miscellaneous (Probiotic Screen) 1 ea MC PRN PRN PRN Reason: PROTOCOL Stop: 09/05/17 17:59 Olanzapine 10 mg/ Olanzapine 2 (.5 mg) 12.5 mg PO HS [facility] Stop: 09/09/17 20:59 Last Admin: 07/12/17 21:28 Dose: 12.5 mg Sodium Phosphate (Fleet Enema) 135 ml RC Q48H PRN PRN Reason: Constipation Stop: 09/01/17 23:19 General: Alert, No acute distress HEENT: Atraumatic, PERRLA, EOMI Neck: Supple, JVD Cardiovascular: Regular rate, Normal S1, Normal S2 Lungs: Clear to auscultation Abdomen: Bowel sounds Psych/Mental Status: Mood NL Assessment/Plan - Assessment Assessment: 1.DEPRESSION. 2.HTN 3.DEMENTIA - Plan Plan: CONT CURRENT TREATMENT Nutritional Asmnt/Malnutr-PDOC - Dietary Evaluation Malnutrition Findings (Please click <Entered> for more info): Nutritional Asmnt/Malnutrition Start: 07/07/17 18: 41 Text: Status: Complete Freq: Document 07/07/17 18:41 GSUN (Rec: 07/07/17 18:43 [email or web address] [email or web address]) Nutritional Asmnt/Malnutrition Patient General Information Nutritional Screening Moderate Risk Screening Diagnosis Major depression, recurrent with psychosis and dementia Pertinent Medical Hx/Surgical Hx HTN, dementia, depression psychosis Subjective Information 66 year old from SNF. Spoke to pt resting in bed. Pt was pleasant, slight confusion noted. Avg PO intake 69% of meals since adm, meeting nutritional needs. Pt stated good appetite. Pt is edentulous, denied difficulties eating, deneid sore jaw. Pt denied nutritional concerns at this time. Pt appeared lean, mild wasting to chest and shoudlers noted. Current Diet Order/ Nutrition Support Regular, cranberry juice TID Pertinent Medications Vitamin C, Colace, Iron, Culturelle, MOM, Remeron, Fleet Enema Pertinent Labs Reviewed. Nutritional Hx/Data Height 1.68 m Height (Calculated Centimeters) 167.6 Current Weight (lbs) 59.511 kg Weight (Calculated Kilograms) 59.5 Weight (Calculated Grams) 71368.3 [place] Body Weight 142 Weight Status Approriate GI Symptoms Usual diet at home [facility]: regular Skin Integrity/Comment: Andrae 16. Current %PO Fair (50-74%) Estimated Nutritional Goals BEE in Kcals: Using Current wt Calories/Kcals/Kg CBW 131.2lb/59.6kg Kcals Calculated 1490-1788kcal (25-30kcal/kg) Protein: Using Current wt Protein Calculated 60g (1g/kg) Fluid: ml 1490-1788ml (1ml/kcal) Nutritional Problem 1. Problem Problem No nutritional problem at this time. Intervention/Recommendation Comments 1. Continue with current diet order. Avg PO intake is adequate. Expected Outcomes/Goals Expected Outcomes/Goals 1. PO intake conitnue to meet at least 75% of estimated nutritional needs.
[2017-07-13] MEDS: Ferrous Sulfate 325 MG TAB PO SCH ×3 (09:44→21:13)
[2017-07-13] MEDS: Aspirin 81mg Chewable Tab PO SCH (09:44)
[2017-07-13] MEDS: Lactobacillus Rhamnosus 10 Billion CFU Capsule PO SCH (09:44)
[2017-07-13] MEDS: Multivitamin w/ Minerals Tab PO SCH (09:44)
--- NOTE | 2017-07-13 20:18 | Progress Notes ---
DATE: 07/13/2017 SUBJECTIVE: Chart reviewed and the patient interviewed. Also discussed the patient's condition with the staff and reviewed records and labs. "I still have pain on my penis, but less than before." The patient is still delusional and slightly paranoid and he still has poor insight. Also, is still in a depressed mood. Also, still easily agitated and easily irritable. Otherwise, the patient is compliant with taking his medications. During interview, the patient is preoccupied and seems to be responding. Also, personal hygiene is still poor. ASSESSMENT: The patient is still depressed and psychotic. TREATMENT PLAN: We will continue the Depakote, Aricept, and Zyprexa. Also, continue to monitor his behavior and his condition closely. JOB# [id number]
[2017-07-14] MEDS: Ferrous Sulfate 325 MG TAB PO SCH ×3 (10:38→20:50)
[2017-07-14] MEDS: Aspirin 81mg Chewable Tab PO SCH (10:39)
[2017-07-14] MEDS: Multivitamin w/ Minerals Tab PO SCH (10:42)
[2017-07-14] MEDS: Hydrocodone/APAP 5mg/325mg Tab PO PRN ×2 (11:18→20:57)
--- NOTE | 2017-07-14 19:01 | Internal Medicine Prog Note ---
Internal Medicine Subjective - Subjective Service Date: 07/14/17 Patient seen and examined:: without staff Patient is:: awake, in bed, talking, confused Per staff patient has:: no adverse event Internal Medicine Objective - Results Result Diagrams: 07/03/17 20:54 07/03/17 20:54 Recent Labs: Laboratory Last Values WBC 7.1 Th/cmm (4.8-10.8) 07/03/17 20:54 RBC 4.74 Mil/cmm (3.80-5.80) 07/03/17 20:54 Hgb 14.7 gm/dL (12.6-17.4) 07/03/17 20:54 Hct 44.3 % (39.0-49.0) 07/03/17 20:54 MCV 93.4 fl (80-99) 07/03/17 20:54 MCH 30.9 pg (27.0-31.0) 07/03/17 20:54 MCHC Differential 33.1 pg (28.0-36.0) 07/03/17 20:54 RDW 14.1 % (11.5-20.0) 07/03/17 20:54 Plt Count 206 Th/cmm (150-400) 07/03/17 20:54 MPV 8.4 fl 07/03/17 20:54 Neutrophils % 57.5 % (40.0-80.0) 07/03/17 20:54 Lymphocytes % 29.4 % (20.0-50.0) 07/03/17 20:54 Monocytes % 7.7 % (2.0-10.0) 07/03/17 20:54 Eosinophils % 2.7 % (0.0-5.0) 07/03/17 20:54 Basophils % 2.7 % (0.0-2.0) H 07/03/17 20:54 Sodium 137 mEq/L (136-145) 07/03/17 20:54 Potassium 4.3 mEq/L (3.5-5.1) 07/03/17 20:54 Chloride 105 mEq/L (98-107) 07/03/17 20:54 Carbon Dioxide 28.7 mEq/L (21.0-31.0) 07/03/17 20:54 Anion Gap 7.6 (7.0-16.0) 07/03/17 20:54 BUN 25 mg/dL (7-25) 07/03/17 20:54 Creatinine 0.9 mg/dL (0.7-1.3) 07/03/17 20:54 Est GFR ( Amer) > 60.0 ml/min (>90) 07/03/17 20:54 Est GFR (Non-Af Amer) > 60.0 ml/min 07/03/17 20:54 BUN/Creatinine Ratio 27.8 07/03/17 20:54 Glucose 103 mg/dL (70-105) 07/03/17 20:54 Calcium 10.0 mg/dL (8.6-10.3) 07/03/17 20:54 Total Bilirubin 0.2 mg/dL (0.3-1.0) L 07/03/17 20:54 AST 19 U/L (13-39) 07/03/17 20:54 ALT 15 U/L (7-52) 07/03/17 20:54 Alkaline Phosphatase 88 U/L (34-104) 07/03/17 20:54 Total Protein 6.7 gm/dL (6.0-8.3) 07/03/17 20:54 Albumin 4.0 gm/dL (4.2-5.5) L 07/03/17 20:54 Globulin 2.7 gm/dL 07/03/17 20:54 Albumin/Globulin Ratio 1.5 (1.0-1.8) 07/03/17 20:54 Triglycerides 192 mg/dL (<150) H 07/03/17 20:54 Cholesterol 175 mg/dL (<200) 07/03/17 20:54 LDL Cholesterol Direct 101 mg/dL (75-193) 07/03/17 20:54 HDL Cholesterol 54 mg/dL (23-92) 07/03/17 20:54 TSH 2.72 uIU/ml (0.34-5.60) 07/03/17 20:54 Urine Source CLEAN C 07/03/17 21:20 Urine Color YELLOW 07/03/17 21:20 Urine Clarity CLOUDY (CLEAR) 07/03/17 21:20 Urine pH 6.0 (4.6 - 8.0) 07/03/17 21:20 Ur Specific [place] 1.025 (1.005-1.030) 07/03/17 21:20 Urine Protein 100 mg/dL (NEGATIVE) H 07/03/17 21:20 Urine Glucose (UA) NEGATIVE mg/dL (NEGATIVE) 07/03/17 21:20 Urine Ketones NEGATIVE mg/dL (NEGATIVE) 07/03/17 21:20 Urine Blood LARGE (NEGATIVE) H 07/03/17 21:20 Urine Nitrate NEGATIVE (NEGATIVE) 07/03/17 21:20 Urine Bilirubin NEGATIVE (NEGATIVE) 07/03/17 21:20 Urine Urobilinogen 0.2 E.U./dL (0.2 - 1.0) 07/03/17 21:20 Ur Leukocyte Esterase MODERATE (NEGATIVE) H 07/03/17 21:20 Urine RBC 25-50 /hpf (0-5) H 07/03/17 21:20 Urine WBC 25-50 /hpf (0-5) H 07/03/17 21:20 Ur Epithelial Cells NONE SEEN /lpf (FEW) 07/03/17 21:20 Urine Bacteria MODERATE /hpf (NONE SEEN) 07/03/17 21:20 Valproic Acid 90.5 ug/mL (50.0-100.0) 07/03/17 20:54 RPR NONREACTIVE (NONREACTIVE) 07/03/17 20:54 - Physical Exam Vitals and I&O: Vital Signs Temp 97.9 F 07/14/17 15:33 Pulse 63 07/14/17 15:33 Resp 19 07/14/17 15:33 BP 108/58 07/14/17 15:33 Pulse Ox 98 07/14/17 15:33 Intake & Output 07/14/17 07/14/17 07/15/17 06:59 18:59 06:59 Intake Total 360 2400 Output Total 400 1200 Balance -40 1200 Intake: Oral 360 2400 Output: Urine 400 1200 Other: # Voids 2 # Bowel Movements 0 0 Active Medications: Current Medications Acetaminophen (Tylenol) 650 mg PO Q4HR PRN PRN Reason: Pain or Fever >101 Stop: 09/01/17 23:19 Last Admin: 07/13/17 21:13 Dose: 650 mg Acetaminophen/Hydrocodone Bitart ([place] 5mg/325mg) 1 tab PO Q6H PRN PRN Reason: Pain (Severe) Stop: 09/01/17 23:19 Last Admin: 07/14/17 11:18 Dose: 1 tab Ascorbic Acid (Vitamin C) 500 mg PO DAILY [facility] Stop: 09/02/17 08:59 Last Admin: 07/14/17 10:38 Dose: 500 mg Aspirin (Aspirin Chewable) 81 mg PO DAILY [facility] Stop: 09/02/17 08:59 Last Admin: 07/14/17 10:39 Dose: 81 mg Bisacodyl (Dulcolax 10 Mg Supp) 10 mg RC DAILY PRN PRN Reason: Constipation Stop: 09/01/17 23:19 Divalproex Sodium (Depakote Dr) 500 mg PO TID [facility] PRN Reason: Protocol Stop: 09/02/17 08:59 Last Admin: 07/14/17 18:24 Dose: Not Given Docusate Sodium (Colace) 100 mg PO BID [facility] Stop: 09/02/17 08:59 Last Admin: 07/14/17 18:23 Dose: Not Given Donepezil HCl (Aricept) 5 mg PO HS [facility] Stop: 09/07/17 20:59 Last Admin: 07/13/17 21:13 Dose: 5 mg Ferrous Sulfate (Iron) 325 mg PO TID [facility] Stop: 09/02/17 08:59 Last Admin: 07/14/17 18:24 Dose: Not Given Magnesium Hydroxide (Milk Of Magnesia) 30 ml PO HS PRN PRN Reason: Constipation Stop: 09/01/17 23:19 Metoprolol Tartrate (Lopressor) 25 mg PO BID [facility] Stop: 09/02/17 08:59 Last Admin: 07/14/17 18:23 Dose: Not Given Mirtazapine (Remeron) 30 mg PO HS [facility] Stop: 09/02/17 20:59 Last Admin: 07/13/17 21:12 Dose: 30 mg Olanzapine (Zyprexa) 15 mg PO HS [facility] Stop: 09/12/17 20:59 Sodium Phosphate (Fleet Enema) 135 ml RC Q48H PRN PRN Reason: Constipation Stop: 09/01/17 23:19 General: demented HEENT: NC/AT, PERRLA, EOMI, anicteric sclerae, throat clear Neck: No JVD, No thyromegaly, +2 carotid pulse wo bruit, No LAD, + JVD Lungs: CTAB Cardiovascular: RRR, Normal S1, Normal S2, without murmur Abdomen: soft, non-tender, non-distended Extremities: clear Neurological: no change Internal Medicine Assmt/Plan - Assessment Assessment: 1.HTNT 2.DEMENTIA - Plan Plan: CONTINUE ON current medication and diet. Nutritional Asmnt/Malnutr-PDOC - Dietary Evaluation Malnutrition Findings (Please click <Entered> for more info): Nutritional Asmnt/Malnutrition Start: 07/07/17 18: 41 Text: Status: Complete Freq: Document 07/07/17 18:41 GSUN (Rec: 07/07/17 18:43 [email or web address] [email or web address]) Nutritional Asmnt/Malnutrition Patient General Information Nutritional Screening Moderate Risk Screening Diagnosis Major depression, recurrent with psychosis and dementia Pertinent Medical Hx/Surgical Hx HTN, dementia, depression psychosis Subjective Information 66 year old from SNF. Spoke to pt resting in bed. Pt was pleasant, slight confusion noted. Avg PO intake 69% of meals since adm, meeting nutritional needs. Pt stated good appetite. Pt is edentulous, denied difficulties eating, deneid sore jaw. Pt denied nutritional concerns at this time. Pt appeared lean, mild wasting to chest and shoudlers noted. Current Diet Order/ Nutrition Support Regular, cranberry juice TID Pertinent Medications Vitamin C, Colace, Iron, Culturelle, MOM, Remeron, Fleet Enema Pertinent Labs Reviewed. Nutritional Hx/Data Height 1.68 m Height (Calculated Centimeters) 167.6 Current Weight (lbs) 59.511 kg Weight (Calculated Kilograms) 59.5 Weight (Calculated Grams) 43781.3 [place] Body Weight 142 Weight Status Approriate GI Symptoms Usual diet at home [facility]: regular Skin Integrity/Comment: Andrae 16. Current %PO Fair (50-74%) Estimated Nutritional Goals BEE in Kcals: Using Current wt Calories/Kcals/Kg CBW 131.2lb/59.6kg Kcals Calculated 1490-1788kcal (25-30kcal/kg) Protein: Using Current wt Protein Calculated 60g (1g/kg) Fluid: ml 1490-1788ml (1ml/kcal) Nutritional Problem 1. Problem Problem No nutritional problem at this time. Intervention/Recommendation Comments 1. Continue with current diet order. Avg PO intake is adequate. Expected Outcomes/Goals Expected Outcomes/Goals 1. PO intake conitnue to meet at least 75% of estimated nutritional needs.
--- NOTE | 2017-07-15 04:10 | Progress Notes ---
DATE: 07/14/2017 Case was discussed with staff of the patient, reviewed records. The patient continues to be unpredictable, impulsive, needing redirection. Continues to be unable to make safe plan for self-care or participate in a meaningful conversation. Continues to be paranoid, delusional at times, easily agitated. He has no side effects with the medication, no sedation, no nausea, no extrapyramidal symptoms. He tolerated the increase in olanzapine with no side effects, no sedation, no nausea, and no extrapyramidal symptoms. I will be increasing the dose to 50 mg at bedtime. We will continue to work with the patient in group therapy, milieu therapy, and adjust the medication as needed. [facility]# [id number]
[2017-07-15] MEDS: Ferrous Sulfate 325 MG TAB PO SCH ×3 (12:40→20:39)
[2017-07-15] MEDS: Hydrocodone/APAP 5mg/325mg Tab PO PRN ×2 (12:40→20:47)
[2017-07-15] MEDS: Aspirin 81mg Chewable Tab PO SCH (12:40)
[2017-07-15] MEDS: Multivitamin w/ Minerals Tab PO SCH (12:41)
--- NOTE | 2017-07-15 19:47 | Internal Medicine Prog Note ---
Internal Medicine Subjective - Subjective Service Date: 07/15/17 Patient seen and examined:: without staff Patient is:: awake, in bed, talking, confused Per staff patient has:: no adverse event Internal Medicine Objective - Results Result Diagrams: 07/03/17 20:54 07/03/17 20:54 Recent Labs: Laboratory Last Values WBC 7.1 Th/cmm (4.8-10.8) 07/03/17 20:54 RBC 4.74 Mil/cmm (3.80-5.80) 07/03/17 20:54 Hgb 14.7 gm/dL (12.6-17.4) 07/03/17 20:54 Hct 44.3 % (39.0-49.0) 07/03/17 20:54 MCV 93.4 fl (80-99) 07/03/17 20:54 MCH 30.9 pg (27.0-31.0) 07/03/17 20:54 MCHC Differential 33.1 pg (28.0-36.0) 07/03/17 20:54 RDW 14.1 % (11.5-20.0) 07/03/17 20:54 Plt Count 206 Th/cmm (150-400) 07/03/17 20:54 MPV 8.4 fl 07/03/17 20:54 Neutrophils % 57.5 % (40.0-80.0) 07/03/17 20:54 Lymphocytes % 29.4 % (20.0-50.0) 07/03/17 20:54 Monocytes % 7.7 % (2.0-10.0) 07/03/17 20:54 Eosinophils % 2.7 % (0.0-5.0) 07/03/17 20:54 Basophils % 2.7 % (0.0-2.0) H 07/03/17 20:54 Sodium 137 mEq/L (136-145) 07/03/17 20:54 Potassium 4.3 mEq/L (3.5-5.1) 07/03/17 20:54 Chloride 105 mEq/L (98-107) 07/03/17 20:54 Carbon Dioxide 28.7 mEq/L (21.0-31.0) 07/03/17 20:54 Anion Gap 7.6 (7.0-16.0) 07/03/17 20:54 BUN 25 mg/dL (7-25) 07/03/17 20:54 Creatinine 0.9 mg/dL (0.7-1.3) 07/03/17 20:54 Est GFR ( Amer) > 60.0 ml/min (>90) 07/03/17 20:54 Est GFR (Non-Af Amer) > 60.0 ml/min 07/03/17 20:54 BUN/Creatinine Ratio 27.8 07/03/17 20:54 Glucose 103 mg/dL (70-105) 07/03/17 20:54 Calcium 10.0 mg/dL (8.6-10.3) 07/03/17 20:54 Total Bilirubin 0.2 mg/dL (0.3-1.0) L 07/03/17 20:54 AST 19 U/L (13-39) 07/03/17 20:54 ALT 15 U/L (7-52) 07/03/17 20:54 Alkaline Phosphatase 88 U/L (34-104) 07/03/17 20:54 Total Protein 6.7 gm/dL (6.0-8.3) 07/03/17 20:54 Albumin 4.0 gm/dL (4.2-5.5) L 07/03/17 20:54 Globulin 2.7 gm/dL 07/03/17 20:54 Albumin/Globulin Ratio 1.5 (1.0-1.8) 07/03/17 20:54 Triglycerides 192 mg/dL (<150) H 07/03/17 20:54 Cholesterol 175 mg/dL (<200) 07/03/17 20:54 LDL Cholesterol Direct 101 mg/dL (75-193) 07/03/17 20:54 HDL Cholesterol 54 mg/dL (23-92) 07/03/17 20:54 TSH 2.72 uIU/ml (0.34-5.60) 07/03/17 20:54 Urine Source CLEAN C 07/03/17 21:20 Urine Color YELLOW 07/03/17 21:20 Urine Clarity CLOUDY (CLEAR) 07/03/17 21:20 Urine pH 6.0 (4.6 - 8.0) 07/03/17 21:20 Ur Specific [place] 1.025 (1.005-1.030) 07/03/17 21:20 Urine Protein 100 mg/dL (NEGATIVE) H 07/03/17 21:20 Urine Glucose (UA) NEGATIVE mg/dL (NEGATIVE) 07/03/17 21:20 Urine Ketones NEGATIVE mg/dL (NEGATIVE) 07/03/17 21:20 Urine Blood LARGE (NEGATIVE) H 07/03/17 21:20 Urine Nitrate NEGATIVE (NEGATIVE) 07/03/17 21:20 Urine Bilirubin NEGATIVE (NEGATIVE) 07/03/17 21:20 Urine Urobilinogen 0.2 E.U./dL (0.2 - 1.0) 07/03/17 21:20 Ur Leukocyte Esterase MODERATE (NEGATIVE) H 07/03/17 21:20 Urine RBC 25-50 /hpf (0-5) H 07/03/17 21:20 Urine WBC 25-50 /hpf (0-5) H 07/03/17 21:20 Ur Epithelial Cells NONE SEEN /lpf (FEW) 07/03/17 21:20 Urine Bacteria MODERATE /hpf (NONE SEEN) 07/03/17 21:20 Valproic Acid 90.5 ug/mL (50.0-100.0) 07/03/17 20:54 RPR NONREACTIVE (NONREACTIVE) 07/03/17 20:54 - Physical Exam Vitals and I&O: Vital Signs Temp 97.9 F 07/15/17 19:04 Pulse 64 07/15/17 19:04 Resp 20 07/15/17 19:04 BP 110/65 07/15/17 19:04 Pulse Ox 97 07/15/17 19:04 Intake & Output 07/15/17 07/15/17 07/16/17 06:59 18:59 06:59 Intake Total 240 500 Output Total 400 Balance -160 500 Intake: Oral 240 500 Output: Urine 400 Other: # Voids 0 3 # Bowel Movements 0 1 Active Medications: Current Medications Acetaminophen (Tylenol) 650 mg PO Q4HR PRN PRN Reason: Pain or Fever >101 Stop: 09/01/17 23:19 Last Admin: 07/15/17 05:36 Dose: 650 mg Acetaminophen/Hydrocodone Bitart ([place] 5mg/325mg) 1 tab PO Q6H PRN PRN Reason: Pain (Severe) Stop: 09/01/17 23:19 Last Admin: 07/15/17 12:40 Dose: 1 tab Ascorbic Acid (Vitamin C) 500 mg PO DAILY [facility] Stop: 09/02/17 08:59 Last Admin: 07/15/17 12:41 Dose: Not Given Aspirin (Aspirin Chewable) 81 mg PO DAILY [facility] Stop: 09/02/17 08:59 Last Admin: 07/15/17 12:40 Dose: 81 mg Bisacodyl (Dulcolax 10 Mg Supp) 10 mg RC DAILY PRN PRN Reason: Constipation Stop: 09/01/17 23:19 Divalproex Sodium (Depakote Dr) 500 mg PO TID [facility] PRN Reason: Protocol Stop: 09/02/17 08:59 Last Admin: 07/15/17 17:35 Dose: Not Given Docusate Sodium (Colace) 100 mg PO BID [facility] Stop: 09/02/17 08:59 Last Admin: 07/15/17 17:35 Dose: Not Given Donepezil HCl (Aricept) 5 mg PO HS [facility] Stop: 09/07/17 20:59 Last Admin: 07/14/17 20:49 Dose: 5 mg Ferrous Sulfate (Iron) 325 mg PO TID [facility] Stop: 09/02/17 08:59 Last Admin: 07/15/17 17:35 Dose: Not Given Magnesium Hydroxide (Milk Of Magnesia) 30 ml PO HS PRN PRN Reason: Constipation Stop: 09/01/17 23:19 Metoprolol Tartrate (Lopressor) 25 mg PO BID [facility] Stop: 09/02/17 08:59 Last Admin: 07/15/17 17:35 Dose: Not Given Mirtazapine (Remeron) 30 mg PO HS [facility] Stop: 09/02/17 20:59 Last Admin: 07/14/17 20:48 Dose: 30 mg Olanzapine (Zyprexa) 15 mg PO HS [facility] Stop: 09/12/17 20:59 Last Admin: 07/14/17 20:48 Dose: 15 mg Sodium Phosphate (Fleet Enema) 135 ml RC Q48H PRN PRN Reason: Constipation Stop: 09/01/17 23:19 General: demented HEENT: NC/AT, PERRLA, EOMI, anicteric sclerae, throat clear Neck: No JVD, No thyromegaly, +2 carotid pulse wo bruit, No LAD, + JVD Lungs: CTAB Cardiovascular: RRR, Normal S1, Normal S2, without murmur Abdomen: soft, non-tender, non-distended Extremities: clear Neurological: no change Internal Medicine Assmt/Plan - Assessment Assessment: 1.HTNT 2.DEMENTIA - Plan Plan: CONTINUE ON current medication and diet. Nutritional Asmnt/Malnutr-PDOC - Dietary Evaluation Malnutrition Findings (Please click <Entered> for more info): Nutritional Asmnt/Malnutrition Start: 07/07/17 18: 41 Text: Status: Complete Freq: Document 07/07/17 18:41 GSUN (Rec: 07/07/17 18:43 [email or web address] [email or web address]) Nutritional Asmnt/Malnutrition Patient General Information Nutritional Screening Moderate Risk Screening Diagnosis Major depression, recurrent with psychosis and dementia Pertinent Medical Hx/Surgical Hx HTN, dementia, depression psychosis Subjective Information 66 year old from SNF. Spoke to pt resting in bed. Pt was pleasant, slight confusion noted. Avg PO intake 69% of meals since adm, meeting nutritional needs. Pt stated good appetite. Pt is edentulous, denied difficulties eating, deneid sore jaw. Pt denied nutritional concerns at this time. Pt appeared lean, mild wasting to chest and shoudlers noted. Current Diet Order/ Nutrition Support Regular, cranberry juice TID Pertinent Medications Vitamin C, Colace, Iron, Culturelle, MOM, Remeron, Fleet Enema Pertinent Labs Reviewed. Nutritional Hx/Data Height 1.68 m Height (Calculated Centimeters) 167.6 Current Weight (lbs) 59.511 kg Weight (Calculated Kilograms) 59.5 Weight (Calculated Grams) 95351.3 [place] Body Weight 142 Weight Status Approriate GI Symptoms Usual diet at home [facility]: regular Skin Integrity/Comment: Andrae 16. Current %PO Fair (50-74%) Estimated Nutritional Goals BEE in Kcals: Using Current wt Calories/Kcals/Kg CBW 131.2lb/59.6kg Kcals Calculated 1490-1788kcal (25-30kcal/kg) Protein: Using Current wt Protein Calculated 60g (1g/kg) Fluid: ml 1490-1788ml (1ml/kcal) Nutritional Problem 1. Problem Problem No nutritional problem at this time. Intervention/Recommendation Comments 1. Continue with current diet order. Avg PO intake is adequate. Expected Outcomes/Goals Expected Outcomes/Goals 1. PO intake conitnue to meet at least 75% of estimated nutritional needs.
--- NOTE | 2017-07-16 02:41 | Progress Notes ---
DATE: 07/15/2017 Case was discussed with staff of the patient, reviewed records. The patient continues to be internally preoccupied. Continues to be unable to make safe plan for self-care or easily agitated. Continues to have poor insight, unable to carry on a conversation or make safe plan for self-care. I did increase his olanzapine dose yesterday to 50 mg at bedtime with no side effects, no sedation, no nausea, no extrapyramidal symptoms and we will continue to work with the patient in group therapy, milieu therapy. Adjust medication. JOB# [id number]
[2017-07-16] MEDS: Multivitamin w/ Minerals Tab PO SCH (10:01)
[2017-07-16] MEDS: Aspirin 81mg Chewable Tab PO SCH (10:01)
[2017-07-16] MEDS: Hydrocodone/APAP 5mg/325mg Tab PO PRN ×2 (10:02→20:38)
[2017-07-16] MEDS: Ferrous Sulfate 325 MG TAB PO SCH ×3 (10:02→20:38)
--- NOTE | 2017-07-16 10:33 | Internal Medicine Prog Note ---
Internal Medicine Subjective - Subjective Patient seen and examined:: with staff Patient is:: awake, in bed, talking, confused Per staff patient has:: no adverse event Internal Medicine Objective - Results Result Diagrams: 07/03/17 20:54 07/03/17 20:54 Recent Labs: Laboratory Last Values WBC 7.1 Th/cmm (4.8-10.8) 07/03/17 20:54 RBC 4.74 Mil/cmm (3.80-5.80) 07/03/17 20:54 Hgb 14.7 gm/dL (12.6-17.4) 07/03/17 20:54 Hct 44.3 % (39.0-49.0) 07/03/17 20:54 MCV 93.4 fl (80-99) 07/03/17 20:54 MCH 30.9 pg (27.0-31.0) 07/03/17 20:54 MCHC Differential 33.1 pg (28.0-36.0) 07/03/17 20:54 RDW 14.1 % (11.5-20.0) 07/03/17 20:54 Plt Count 206 Th/cmm (150-400) 07/03/17 20:54 MPV 8.4 fl 07/03/17 20:54 Neutrophils % 57.5 % (40.0-80.0) 07/03/17 20:54 Lymphocytes % 29.4 % (20.0-50.0) 07/03/17 20:54 Monocytes % 7.7 % (2.0-10.0) 07/03/17 20:54 Eosinophils % 2.7 % (0.0-5.0) 07/03/17 20:54 Basophils % 2.7 % (0.0-2.0) H 07/03/17 20:54 Sodium 137 mEq/L (136-145) 07/03/17 20:54 Potassium 4.3 mEq/L (3.5-5.1) 07/03/17 20:54 Chloride 105 mEq/L (98-107) 07/03/17 20:54 Carbon Dioxide 28.7 mEq/L (21.0-31.0) 07/03/17 20:54 Anion Gap 7.6 (7.0-16.0) 07/03/17 20:54 BUN 25 mg/dL (7-25) 07/03/17 20:54 Creatinine 0.9 mg/dL (0.7-1.3) 07/03/17 20:54 Est GFR ( Amer) > 60.0 ml/min (>90) 07/03/17 20:54 Est GFR (Non-Af Amer) > 60.0 ml/min 07/03/17 20:54 BUN/Creatinine Ratio 27.8 07/03/17 20:54 Glucose 103 mg/dL (70-105) 07/03/17 20:54 Calcium 10.0 mg/dL (8.6-10.3) 07/03/17 20:54 Total Bilirubin 0.2 mg/dL (0.3-1.0) L 07/03/17 20:54 AST 19 U/L (13-39) 07/03/17 20:54 ALT 15 U/L (7-52) 07/03/17 20:54 Alkaline Phosphatase 88 U/L (34-104) 07/03/17 20:54 Total Protein 6.7 gm/dL (6.0-8.3) 07/03/17 20:54 Albumin 4.0 gm/dL (4.2-5.5) L 07/03/17 20:54 Globulin 2.7 gm/dL 07/03/17 20:54 Albumin/Globulin Ratio 1.5 (1.0-1.8) 07/03/17 20:54 Triglycerides 192 mg/dL (<150) H 07/03/17 20:54 Cholesterol 175 mg/dL (<200) 07/03/17 20:54 LDL Cholesterol Direct 101 mg/dL (75-193) 07/03/17 20:54 HDL Cholesterol 54 mg/dL (23-92) 07/03/17 20:54 TSH 2.72 uIU/ml (0.34-5.60) 07/03/17 20:54 Urine Source CLEAN C 07/03/17 21:20 Urine Color YELLOW 07/03/17 21:20 Urine Clarity CLOUDY (CLEAR) 07/03/17 21:20 Urine pH 6.0 (4.6 - 8.0) 07/03/17 21:20 Ur Specific [place] 1.025 (1.005-1.030) 07/03/17 21:20 Urine Protein 100 mg/dL (NEGATIVE) H 07/03/17 21:20 Urine Glucose (UA) NEGATIVE mg/dL (NEGATIVE) 07/03/17 21:20 Urine Ketones NEGATIVE mg/dL (NEGATIVE) 07/03/17 21:20 Urine Blood LARGE (NEGATIVE) H 07/03/17 21:20 Urine Nitrate NEGATIVE (NEGATIVE) 07/03/17 21:20 Urine Bilirubin NEGATIVE (NEGATIVE) 07/03/17 21:20 Urine Urobilinogen 0.2 E.U./dL (0.2 - 1.0) 07/03/17 21:20 Ur Leukocyte Esterase MODERATE (NEGATIVE) H 07/03/17 21:20 Urine RBC 25-50 /hpf (0-5) H 07/03/17 21:20 Urine WBC 25-50 /hpf (0-5) H 07/03/17 21:20 Ur Epithelial Cells NONE SEEN /lpf (FEW) 07/03/17 21:20 Urine Bacteria MODERATE /hpf (NONE SEEN) 07/03/17 21:20 Valproic Acid 90.5 ug/mL (50.0-100.0) 07/03/17 20:54 RPR NONREACTIVE (NONREACTIVE) 07/03/17 20:54 - Physical Exam Vitals and I&O: Vital Signs Temp 98.1 F 07/16/17 06:28 Pulse 67 07/16/17 06:28 Resp 20 07/16/17 06:28 BP 116/68 07/16/17 06:28 Pulse Ox 97 07/16/17 06:28 Intake & Output 07/15/17 07/16/17 07/16/17 18:59 06:59 18:59 Intake Total 620 Output Total 550 Balance 70 Intake: Oral 620 Output: Urine 550 Other: # Voids 3 # Bowel Movements 1 Active Medications: Current Medications Acetaminophen (Tylenol) 650 mg PO Q4HR PRN PRN Reason: Pain or Fever >101 Stop: 09/01/17 23:19 Last Admin: 07/15/17 05:36 Dose: 650 mg Acetaminophen/Hydrocodone Bitart ([place] 5mg/325mg) 1 tab PO Q6H PRN PRN Reason: Pain (Severe) Stop: 09/01/17 23:19 Last Admin: 07/16/17 10:02 Dose: 1 tab Ascorbic Acid (Vitamin C) 500 mg PO DAILY [facility] Stop: 09/02/17 08:59 Last Admin: 07/16/17 10:02 Dose: 500 mg Aspirin (Aspirin Chewable) 81 mg PO DAILY [facility] Stop: 09/02/17 08:59 Last Admin: 07/16/17 10:01 Dose: 81 mg Bisacodyl (Dulcolax 10 Mg Supp) 10 mg RC DAILY PRN PRN Reason: Constipation Stop: 09/01/17 23:19 Divalproex Sodium (Depakote Dr) 500 mg PO TID [facility] PRN Reason: Protocol Stop: 09/02/17 08:59 Last Admin: 07/16/17 10:02 Dose: 500 mg Docusate Sodium (Colace) 100 mg PO BID [facility] Stop: 09/02/17 08:59 Last Admin: 07/16/17 10:01 Dose: 100 mg Donepezil HCl (Aricept) 5 mg PO HS [facility] Stop: 09/07/17 20:59 Last Admin: 07/15/17 20:39 Dose: 5 mg Ferrous Sulfate (Iron) 325 mg PO TID [facility] Stop: 09/02/17 08:59 Last Admin: 07/16/17 10:02 Dose: 325 mg Magnesium Hydroxide (Milk Of Magnesia) 30 ml PO HS PRN PRN Reason: Constipation Stop: 09/01/17 23:19 Metoprolol Tartrate (Lopressor) 25 mg PO BID [facility] Stop: 09/02/17 08:59 Last Admin: 07/16/17 10:04 Dose: Not Given Mirtazapine (Remeron) 30 mg PO HS [facility] Stop: 09/02/17 20:59 Last Admin: 07/15/17 20:39 Dose: 30 mg Olanzapine (Zyprexa) 15 mg PO HS [facility] Stop: 09/12/17 20:59 Last Admin: 07/15/17 20:39 Dose: 15 mg Sodium Phosphate (Fleet Enema) 135 ml RC Q48H PRN PRN Reason: Constipation Stop: 09/01/17 23:19 General: demented HEENT: NC/AT, PERRLA, EOMI, anicteric sclerae, throat clear Neck: No JVD, No thyromegaly, +2 carotid pulse wo bruit, No LAD, + JVD Lungs: CTAB Cardiovascular: RRR, Normal S1, Normal S2, without murmur Abdomen: soft, non-tender, non-distended Extremities: clear Neurological: no change Internal Medicine Assmt/Plan - Assessment Assessment: 1.HTNT 2.DEMENTIA - Plan Plan: CONTINUE ON current medication and diet. Nutritional Asmnt/Malnutr-PDOC - Dietary Evaluation Malnutrition Findings (Please click <Entered> for more info): Nutritional Asmnt/Malnutrition Start: 07/07/17 18: 41 Text: Status: Complete Freq: Document 07/07/17 18:41 GSUN (Rec: 07/07/17 18:43 [email or web address] [email or web address]) Nutritional Asmnt/Malnutrition Patient General Information Nutritional Screening Moderate Risk Screening Diagnosis Major depression, recurrent with psychosis and dementia Pertinent Medical Hx/Surgical Hx HTN, dementia, depression psychosis Subjective Information 66 year old from SNF. Spoke to pt resting in bed. Pt was pleasant, slight confusion noted. Avg PO intake 69% of meals since adm, meeting nutritional needs. Pt stated good appetite. Pt is edentulous, denied difficulties eating, deneid sore jaw. Pt denied nutritional concerns at this time. Pt appeared lean, mild wasting to chest and shoudlers noted. Current Diet Order/ Nutrition Support Regular, cranberry juice TID Pertinent Medications Vitamin C, Colace, Iron, Culturelle, MOM, Remeron, Fleet Enema Pertinent Labs Reviewed. Nutritional Hx/Data Height 1.68 m Height (Calculated Centimeters) 167.6 Current Weight (lbs) 59.511 kg Weight (Calculated Kilograms) 59.5 Weight (Calculated Grams) 46061.3 [place] Body Weight 142 Weight Status Approriate GI Symptoms Usual diet at home [facility]: regular Skin Integrity/Comment: Andrae 16. Current %PO Fair (50-74%) Estimated Nutritional Goals BEE in Kcals: Using Current wt Calories/Kcals/Kg CBW 131.2lb/59.6kg Kcals Calculated 1490-1788kcal (25-30kcal/kg) Protein: Using Current wt Protein Calculated 60g (1g/kg) Fluid: ml 1490-1788ml (1ml/kcal) Nutritional Problem 1. Problem Problem No nutritional problem at this time. Intervention/Recommendation Comments 1. Continue with current diet order. Avg PO intake is adequate. Expected Outcomes/Goals Expected Outcomes/Goals 1. PO intake conitnue to meet at least 75% of estimated nutritional needs.
--- NOTE | 2017-07-16 23:26 | Progress Notes ---
DATE: 07/16/2017 SUBJECTIVE: Case was discussed with staff of the patient, reviewed records. The patient continues to be internally preoccupied, stays to himself, unable to make safe plan for self-care, unpredictable, impulsive, unable to carry on a reasonable conversation. He is compliant with the medication with no side effects. No sedation. No nausea. I did increase his olanzapine dose 2 days ago, on 07/14/2017, to 50 mg at bedtime. PLAN OF CARE: We will continue to work with the patient in group therapy, milieu therapy, adjust medication as needed. JOB# [id number]
[2017-07-17] MEDS: Hydrocodone/APAP 5mg/325mg Tab PO PRN ×2 (06:53→17:20)
[2017-07-17] MEDS: Multivitamin w/ Minerals Tab PO SCH (09:38)
[2017-07-17] MEDS: Aspirin 81mg Chewable Tab PO SCH (09:39)
[2017-07-17] MEDS: Ferrous Sulfate 325 MG TAB PO SCH ×3 (09:39→20:56)
--- NOTE | 2017-07-17 20:18 | Internal Medicine Prog Note ---
Internal Medicine Subjective - Subjective Service Date: 07/17/17 Patient seen and examined:: with staff Patient is:: awake, in bed, talking, confused Per staff patient has:: no adverse event Internal Medicine Objective - Results Result Diagrams: 07/03/17 20:54 07/03/17 20:54 Recent Labs: Laboratory Last Values WBC 7.1 Th/cmm (4.8-10.8) 07/03/17 20:54 RBC 4.74 Mil/cmm (3.80-5.80) 07/03/17 20:54 Hgb 14.7 gm/dL (12.6-17.4) 07/03/17 20:54 Hct 44.3 % (39.0-49.0) 07/03/17 20:54 MCV 93.4 fl (80-99) 07/03/17 20:54 MCH 30.9 pg (27.0-31.0) 07/03/17 20:54 MCHC Differential 33.1 pg (28.0-36.0) 07/03/17 20:54 RDW 14.1 % (11.5-20.0) 07/03/17 20:54 Plt Count 206 Th/cmm (150-400) 07/03/17 20:54 MPV 8.4 fl 07/03/17 20:54 Neutrophils % 57.5 % (40.0-80.0) 07/03/17 20:54 Lymphocytes % 29.4 % (20.0-50.0) 07/03/17 20:54 Monocytes % 7.7 % (2.0-10.0) 07/03/17 20:54 Eosinophils % 2.7 % (0.0-5.0) 07/03/17 20:54 Basophils % 2.7 % (0.0-2.0) H 07/03/17 20:54 Sodium 137 mEq/L (136-145) 07/03/17 20:54 Potassium 4.3 mEq/L (3.5-5.1) 07/03/17 20:54 Chloride 105 mEq/L (98-107) 07/03/17 20:54 Carbon Dioxide 28.7 mEq/L (21.0-31.0) 07/03/17 20:54 Anion Gap 7.6 (7.0-16.0) 07/03/17 20:54 BUN 25 mg/dL (7-25) 07/03/17 20:54 Creatinine 0.9 mg/dL (0.7-1.3) 07/03/17 20:54 Est GFR ( Amer) > 60.0 ml/min (>90) 07/03/17 20:54 Est GFR (Non-Af Amer) > 60.0 ml/min 07/03/17 20:54 BUN/Creatinine Ratio 27.8 07/03/17 20:54 Glucose 103 mg/dL (70-105) 07/03/17 20:54 Calcium 10.0 mg/dL (8.6-10.3) 07/03/17 20:54 Total Bilirubin 0.2 mg/dL (0.3-1.0) L 07/03/17 20:54 AST 19 U/L (13-39) 07/03/17 20:54 ALT 15 U/L (7-52) 07/03/17 20:54 Alkaline Phosphatase 88 U/L (34-104) 07/03/17 20:54 Total Protein 6.7 gm/dL (6.0-8.3) 07/03/17 20:54 Albumin 4.0 gm/dL (4.2-5.5) L 07/03/17 20:54 Globulin 2.7 gm/dL 07/03/17 20:54 Albumin/Globulin Ratio 1.5 (1.0-1.8) 07/03/17 20:54 Triglycerides 192 mg/dL (<150) H 07/03/17 20:54 Cholesterol 175 mg/dL (<200) 07/03/17 20:54 LDL Cholesterol Direct 101 mg/dL (75-193) 07/03/17 20:54 HDL Cholesterol 54 mg/dL (23-92) 07/03/17 20:54 TSH 2.72 uIU/ml (0.34-5.60) 07/03/17 20:54 Urine Source CLEAN C 07/03/17 21:20 Urine Color YELLOW 07/03/17 21:20 Urine Clarity CLOUDY (CLEAR) 07/03/17 21:20 Urine pH 6.0 (4.6 - 8.0) 07/03/17 21:20 Ur Specific [place] 1.025 (1.005-1.030) 07/03/17 21:20 Urine Protein 100 mg/dL (NEGATIVE) H 07/03/17 21:20 Urine Glucose (UA) NEGATIVE mg/dL (NEGATIVE) 07/03/17 21:20 Urine Ketones NEGATIVE mg/dL (NEGATIVE) 07/03/17 21:20 Urine Blood LARGE (NEGATIVE) H 07/03/17 21:20 Urine Nitrate NEGATIVE (NEGATIVE) 07/03/17 21:20 Urine Bilirubin NEGATIVE (NEGATIVE) 07/03/17 21:20 Urine Urobilinogen 0.2 E.U./dL (0.2 - 1.0) 07/03/17 21:20 Ur Leukocyte Esterase MODERATE (NEGATIVE) H 07/03/17 21:20 Urine RBC 25-50 /hpf (0-5) H 07/03/17 21:20 Urine WBC 25-50 /hpf (0-5) H 07/03/17 21:20 Ur Epithelial Cells NONE SEEN /lpf (FEW) 07/03/17 21:20 Urine Bacteria MODERATE /hpf (NONE SEEN) 07/03/17 21:20 Valproic Acid 90.5 ug/mL (50.0-100.0) 07/03/17 20:54 RPR NONREACTIVE (NONREACTIVE) 07/03/17 20:54 - Physical Exam Vitals and I&O: Vital Signs Temp 98.2 F 07/17/17 18:28 Pulse 70 07/17/17 18:28 Resp 20 07/17/17 18:28 BP 102/67 07/17/17 18:28 Pulse Ox 97 07/17/17 18:28 Intake & Output 07/17/17 07/17/17 07/18/17 06:59 18:59 06:59 Intake Total 120 1000 Output Total 500 Balance -380 1000 Intake: Oral 120 1000 Output: Urine 500 Active Medications: Current Medications Acetaminophen (Tylenol) 650 mg PO Q4HR PRN PRN Reason: Pain or Fever >101 Stop: 09/01/17 23:19 Last Admin: 07/15/17 05:36 Dose: 650 mg Acetaminophen/Hydrocodone Bitart ([place] 5mg/325mg) 1 tab PO Q6H PRN PRN Reason: Pain (Severe) Stop: 09/01/17 23:19 Last Admin: 07/17/17 17:20 Dose: 1 tab Ascorbic Acid (Vitamin C) 500 mg PO DAILY [facility] Stop: 09/02/17 08:59 Last Admin: 07/17/17 09:39 Dose: 500 mg Aspirin (Aspirin Chewable) 81 mg PO DAILY [facility] Stop: 09/02/17 08:59 Last Admin: 07/17/17 09:39 Dose: 81 mg Bisacodyl (Dulcolax 10 Mg Supp) 10 mg RC DAILY PRN PRN Reason: Constipation Stop: 09/01/17 23:19 Divalproex Sodium (Depakote Dr) 500 mg PO TID [facility] PRN Reason: Protocol Stop: 09/02/17 08:59 Last Admin: 07/17/17 13:52 Dose: 500 mg Docusate Sodium (Colace) 100 mg PO BID [facility] Stop: 09/02/17 08:59 Last Admin: 07/17/17 17:15 Dose: 100 mg Donepezil HCl (Aricept) 5 mg PO HS [facility] Stop: 09/07/17 20:59 Last Admin: 07/16/17 20:38 Dose: 5 mg Ferrous Sulfate (Iron) 325 mg PO TID [facility] Stop: 09/02/17 08:59 Last Admin: 07/17/17 13:52 Dose: 325 mg Magnesium Hydroxide (Milk Of Magnesia) 30 ml PO HS PRN PRN Reason: Constipation Stop: 09/01/17 23:19 Metoprolol Tartrate (Lopressor) 25 mg PO BID [facility] Stop: 09/02/17 08:59 Last Admin: 07/17/17 17:16 Dose: Not Given Mirtazapine (Remeron) 30 mg PO HS [facility] Stop: 09/02/17 20:59 Last Admin: 07/16/17 20:37 Dose: 30 mg Olanzapine (Zyprexa) 15 mg PO HS [facility] Stop: 09/12/17 20:59 Last Admin: 07/16/17 20:38 Dose: 15 mg Sodium Phosphate (Fleet Enema) 135 ml RC Q48H PRN PRN Reason: Constipation Stop: 09/01/17 23:19 General: demented HEENT: NC/AT, PERRLA, EOMI, anicteric sclerae, throat clear Neck: No JVD, No thyromegaly, +2 carotid pulse wo bruit, No LAD, + JVD Lungs: CTAB Cardiovascular: RRR, Normal S1, Normal S2, without murmur Abdomen: soft, non-tender, non-distended Extremities: clear Neurological: no change Internal Medicine Assmt/Plan - Assessment Assessment: 1.HTNT 2.DEMENTIA - Plan Plan: CONTINUE ON current medication and diet. Nutritional Asmnt/Malnutr-PDOC - Dietary Evaluation Malnutrition Findings (Please click <Entered> for more info): Nutritional Asmnt/Malnutrition Start: 07/07/17 18: 41 Text: Status: Complete Freq: Document 07/07/17 18:41 GSUN (Rec: 07/07/17 18:43 [email or web address] [email or web address]) Nutritional Asmnt/Malnutrition Patient General Information Nutritional Screening Moderate Risk Screening Diagnosis Major depression, recurrent with psychosis and dementia Pertinent Medical Hx/Surgical Hx HTN, dementia, depression psychosis Subjective Information 66 year old from SNF. Spoke to pt resting in bed. Pt was pleasant, slight confusion noted. Avg PO intake 69% of meals since adm, meeting nutritional needs. Pt stated good appetite. Pt is edentulous, denied difficulties eating, deneid sore jaw. Pt denied nutritional concerns at this time. Pt appeared lean, mild wasting to chest and shoudlers noted. Current Diet Order/ Nutrition Support Regular, cranberry juice TID Pertinent Medications Vitamin C, Colace, Iron, Culturelle, MOM, Remeron, Fleet Enema Pertinent Labs Reviewed. Nutritional Hx/Data Height 1.68 m Height (Calculated Centimeters) 167.6 Current Weight (lbs) 59.511 kg Weight (Calculated Kilograms) 59.5 Weight (Calculated Grams) 75469.3 [place] Body Weight 142 Weight Status Approriate GI Symptoms Usual diet at home [facility]: regular Skin Integrity/Comment: Andrae 16. Current %PO Fair (50-74%) Estimated Nutritional Goals BEE in Kcals: Using Current wt Calories/Kcals/Kg CBW 131.2lb/59.6kg Kcals Calculated 1490-1788kcal (25-30kcal/kg) Protein: Using Current wt Protein Calculated 60g (1g/kg) Fluid: ml 1490-1788ml (1ml/kcal) Nutritional Problem 1. Problem Problem No nutritional problem at this time. Intervention/Recommendation Comments 1. Continue with current diet order. Avg PO intake is adequate. Expected Outcomes/Goals Expected Outcomes/Goals 1. PO intake conitnue to meet at least 75% of estimated nutritional needs.
--- NOTE | 2017-07-18 00:15 | Progress Notes ---
DATE: 07/17/2017 Case was discussed with staff of the patient, reviewed records. The patient continues to internally preoccupied, rambling to himself. Unable to carry on a conversation, continues to have poor insight, unable to make safe plan for self-care. Sleeping well, eating well. No suicidal side effects with the medication, no sedation, no nausea, no extrapyramidal symptoms. He tolerates the increase in his Zyprexa with no side effects. We will continue to work with the patient in group therapy, milieu therapy, adjust the medication as needed. JOB# [id number]
[2017-07-18] MEDS: Multivitamin w/ Minerals Tab PO SCH (08:35)
[2017-07-18] MEDS: Ferrous Sulfate 325 MG TAB PO SCH ×3 (08:35→21:16)
[2017-07-18] MEDS: Aspirin 81mg Chewable Tab PO SCH (08:35)
--- NOTE | 2017-07-18 17:21 | Internal Medicine Prog Note ---
Internal Medicine Subjective - Subjective Service Date: 07/18/17 Patient is:: awake, in bed, talking, confused Per staff patient has:: no adverse event Internal Medicine Objective - Results Result Diagrams: 07/03/17 20:54 07/03/17 20:54 Recent Labs: Laboratory Last Values WBC 7.1 Th/cmm (4.8-10.8) 07/03/17 20:54 RBC 4.74 Mil/cmm (3.80-5.80) 07/03/17 20:54 Hgb 14.7 gm/dL (12.6-17.4) 07/03/17 20:54 Hct 44.3 % (39.0-49.0) 07/03/17 20:54 MCV 93.4 fl (80-99) 07/03/17 20:54 MCH 30.9 pg (27.0-31.0) 07/03/17 20:54 MCHC Differential 33.1 pg (28.0-36.0) 07/03/17 20:54 RDW 14.1 % (11.5-20.0) 07/03/17 20:54 Plt Count 206 Th/cmm (150-400) 07/03/17 20:54 MPV 8.4 fl 07/03/17 20:54 Neutrophils % 57.5 % (40.0-80.0) 07/03/17 20:54 Lymphocytes % 29.4 % (20.0-50.0) 07/03/17 20:54 Monocytes % 7.7 % (2.0-10.0) 07/03/17 20:54 Eosinophils % 2.7 % (0.0-5.0) 07/03/17 20:54 Basophils % 2.7 % (0.0-2.0) H 07/03/17 20:54 Sodium 137 mEq/L (136-145) 07/03/17 20:54 Potassium 4.3 mEq/L (3.5-5.1) 07/03/17 20:54 Chloride 105 mEq/L (98-107) 07/03/17 20:54 Carbon Dioxide 28.7 mEq/L (21.0-31.0) 07/03/17 20:54 Anion Gap 7.6 (7.0-16.0) 07/03/17 20:54 BUN 25 mg/dL (7-25) 07/03/17 20:54 Creatinine 0.9 mg/dL (0.7-1.3) 07/03/17 20:54 Est GFR ( Amer) > 60.0 ml/min (>90) 07/03/17 20:54 Est GFR (Non-Af Amer) > 60.0 ml/min 07/03/17 20:54 BUN/Creatinine Ratio 27.8 07/03/17 20:54 Glucose 103 mg/dL (70-105) 07/03/17 20:54 Calcium 10.0 mg/dL (8.6-10.3) 07/03/17 20:54 Total Bilirubin 0.2 mg/dL (0.3-1.0) L 07/03/17 20:54 AST 19 U/L (13-39) 07/03/17 20:54 ALT 15 U/L (7-52) 07/03/17 20:54 Alkaline Phosphatase 88 U/L (34-104) 07/03/17 20:54 Total Protein 6.7 gm/dL (6.0-8.3) 07/03/17 20:54 Albumin 4.0 gm/dL (4.2-5.5) L 07/03/17 20:54 Globulin 2.7 gm/dL 07/03/17 20:54 Albumin/Globulin Ratio 1.5 (1.0-1.8) 07/03/17 20:54 Triglycerides 192 mg/dL (<150) H 07/03/17 20:54 Cholesterol 175 mg/dL (<200) 07/03/17 20:54 LDL Cholesterol Direct 101 mg/dL (75-193) 07/03/17 20:54 HDL Cholesterol 54 mg/dL (23-92) 07/03/17 20:54 TSH 2.72 uIU/ml (0.34-5.60) 07/03/17 20:54 Urine Source CLEAN C 07/03/17 21:20 Urine Color YELLOW 07/03/17 21:20 Urine Clarity CLOUDY (CLEAR) 07/03/17 21:20 Urine pH 6.0 (4.6 - 8.0) 07/03/17 21:20 Ur Specific [place] 1.025 (1.005-1.030) 07/03/17 21:20 Urine Protein 100 mg/dL (NEGATIVE) H 07/03/17 21:20 Urine Glucose (UA) NEGATIVE mg/dL (NEGATIVE) 07/03/17 21:20 Urine Ketones NEGATIVE mg/dL (NEGATIVE) 07/03/17 21:20 Urine Blood LARGE (NEGATIVE) H 07/03/17 21:20 Urine Nitrate NEGATIVE (NEGATIVE) 07/03/17 21:20 Urine Bilirubin NEGATIVE (NEGATIVE) 07/03/17 21:20 Urine Urobilinogen 0.2 E.U./dL (0.2 - 1.0) 07/03/17 21:20 Ur Leukocyte Esterase MODERATE (NEGATIVE) H 07/03/17 21:20 Urine RBC 25-50 /hpf (0-5) H 07/03/17 21:20 Urine WBC 25-50 /hpf (0-5) H 07/03/17 21:20 Ur Epithelial Cells NONE SEEN /lpf (FEW) 07/03/17 21:20 Urine Bacteria MODERATE /hpf (NONE SEEN) 07/03/17 21:20 Valproic Acid 90.5 ug/mL (50.0-100.0) 07/03/17 20:54 RPR NONREACTIVE (NONREACTIVE) 07/03/17 20:54 - Physical Exam Vitals and I&O: Vital Signs Temp 97.5 F 07/18/17 16:05 Pulse 57 07/18/17 16:26 Resp 19 07/18/17 16:05 BP 109/57 07/18/17 16:26 Pulse Ox 98 07/18/17 16:05 Intake & Output 07/17/17 07/18/17 07/18/17 18:59 06:59 18:59 Intake Total 1000 120 Output Total 450 Balance 1000 -330 Intake: Oral 1000 120 Output: Urine 450 Active Medications: Current Medications Acetaminophen (Tylenol) 650 mg PO Q4HR PRN PRN Reason: Pain or Fever >101 Stop: 09/01/17 23:19 Last Admin: 07/18/17 13:24 Dose: 650 mg Acetaminophen/Hydrocodone Bitart ([place] 5mg/325mg) 1 tab PO Q6H PRN PRN Reason: Pain (Severe) Stop: 09/01/17 23:19 Last Admin: 07/17/17 17:20 Dose: 1 tab Ascorbic Acid (Vitamin C) 500 mg PO DAILY [facility] Stop: 09/02/17 08:59 Last Admin: 07/18/17 08:35 Dose: 500 mg Aspirin (Aspirin Chewable) 81 mg PO DAILY [facility] Stop: 09/02/17 08:59 Last Admin: 07/18/17 08:35 Dose: 81 mg Bisacodyl (Dulcolax 10 Mg Supp) 10 mg RC DAILY PRN PRN Reason: Constipation Stop: 09/01/17 23:19 Divalproex Sodium (Depakote Dr) 500 mg PO TID [facility] PRN Reason: Protocol Stop: 09/02/17 08:59 Last Admin: 07/18/17 13:22 Dose: 500 mg Docusate Sodium (Colace) 100 mg PO BID [facility] Stop: 09/02/17 08:59 Last Admin: 07/18/17 16:26 Dose: 100 mg Donepezil HCl (Aricept) 5 mg PO HS [facility] Stop: 09/07/17 20:59 Last Admin: 07/17/17 20:56 Dose: 5 mg Ferrous Sulfate (Iron) 325 mg PO TID [facility] Stop: 09/02/17 08:59 Last Admin: 07/18/17 13:22 Dose: 325 mg Magnesium Hydroxide (Milk Of Magnesia) 30 ml PO HS PRN PRN Reason: Constipation Stop: 09/01/17 23:19 Metoprolol Tartrate (Lopressor) 25 mg PO BID [facility] Stop: 09/02/17 08:59 Last Admin: 07/18/17 16:26 Dose: Not Given Mirtazapine (Remeron) 30 mg PO HS [facility]IA Stop: 09/02/17 20:59 Last Admin: 07/17/17 20:55 Dose: 30 mg Olanzapine 15 mg/ Olanzapine 2 (.5 mg) 17.5 mg PO HS [facility] Stop: 09/17/17 20:59 Sodium Phosphate (Fleet Enema) 135 ml RC Q48H PRN PRN Reason: Constipation Stop: 09/01/17 23:19 General: demented HEENT: NC/AT, PERRLA, EOMI, anicteric sclerae, throat clear Neck: No JVD, No thyromegaly, +2 carotid pulse wo bruit, No LAD, + JVD Lungs: CTAB Cardiovascular: RRR, Normal S1, Normal S2, without murmur Abdomen: soft, non-tender, non-distended Extremities: clear Neurological: no change Internal Medicine Assmt/Plan - Assessment Assessment: 1.HTNT 2.DEMENTIA - Plan Plan: CONTINUE ON current medication and diet. Nutritional Asmnt/Malnutr-PDOC - Dietary Evaluation Malnutrition Findings (Please click <Entered> for more info): Nutritional Asmnt/Malnutrition Start: 07/07/17 18: 41 Text: Status: Complete Freq: Document 07/07/17 18:41 GSUN (Rec: 07/07/17 18:43 GSUN [id number]) Nutritional Asmnt/Malnutrition Patient General Information Nutritional Screening Moderate Risk Screening Diagnosis Major depression, recurrent with psychosis and dementia Pertinent Medical Hx/Surgical Hx HTN, dementia, depression psychosis Subjective Information 66 year old from SNF. Spoke to pt resting in bed. Pt was pleasant, slight confusion noted. Avg PO intake 69% of meals since adm, meeting nutritional needs. Pt stated good appetite. Pt is edentulous, denied difficulties eating, deneid sore jaw. Pt denied nutritional concerns at this time. Pt appeared lean, mild wasting to chest and shoudlers noted. Current Diet Order/ Nutrition Support Regular, cranberry juice TID Pertinent Medications Vitamin C, Colace, Iron, Culturelle, MOM, Remeron, Fleet Enema Pertinent Labs Reviewed. Nutritional Hx/Data Height 1.68 m Height (Calculated Centimeters) 167.6 Current Weight (lbs) 59.511 kg Weight (Calculated Kilograms) 59.5 Weight (Calculated Grams) 82640.3 [place] Body Weight 142 Weight Status Approriate GI Symptoms Usual diet at home [facility]: regular Skin Integrity/Comment: Andrae 16. Current %PO Fair (50-74%) Estimated Nutritional Goals BEE in Kcals: Using Current wt Calories/Kcals/Kg CBW 131.2lb/59.6kg Kcals Calculated 1490-1788kcal (25-30kcal/kg) Protein: Using Current wt Protein Calculated 60g (1g/kg) Fluid: ml 1490-1788ml (1ml/kcal) Nutritional Problem 1. Problem Problem No nutritional problem at this time. Intervention/Recommendation Comments 1. Continue with current diet order. Avg PO intake is adequate. Expected Outcomes/Goals Expected Outcomes/Goals 1. PO intake conitnue to meet at least 75% of estimated nutritional needs.
--- NOTE | 2017-07-18 23:53 | Progress Notes ---
DATE: 07/18/2017 Case was discussed with staff of the patient, reviewed records. The patient continues to do the same and generally preoccupied, talking to himself, responding to internal stimuli, unable to care for himself or make safe plan for self-care, unpredictable and impulsive. I will be increasing his Zyprexa to 17.5 at bedtime and so far, no side effects, no sedation, no nausea, and no extrapyramidal symptoms. He is also on Aricept. We will continue to work with the patient in group therapy, milieu therapy, and adjust medications as needed. JOB# [id number]
[2017-07-19] MEDS: Ferrous Sulfate 325 MG TAB PO SCH ×3 (08:56→20:37)
[2017-07-19] MEDS: Multivitamin w/ Minerals Tab PO SCH (08:57)
[2017-07-19] MEDS: Aspirin 81mg Chewable Tab PO SCH (08:57)
--- NOTE | 2017-07-19 14:40 | Internal Medicine Prog Note ---
Internal Medicine Subjective - Subjective Service Date: 07/19/17 Patient seen and examined:: with staff (HE IS EATING BETTER,BUT NOT DRINKING ENOUGH.) Patient is:: awake, in bed, talking, confused Per staff patient has:: no adverse event Internal Medicine Objective - Results Result Diagrams: 07/03/17 20:54 07/03/17 20:54 Recent Labs: Laboratory Last Values WBC 7.1 Th/cmm (4.8-10.8) 07/03/17 20:54 RBC 4.74 Mil/cmm (3.80-5.80) 07/03/17 20:54 Hgb 14.7 gm/dL (12.6-17.4) 07/03/17 20:54 Hct 44.3 % (39.0-49.0) 07/03/17 20:54 MCV 93.4 fl (80-99) 07/03/17 20:54 MCH 30.9 pg (27.0-31.0) 07/03/17 20:54 MCHC Differential 33.1 pg (28.0-36.0) 07/03/17 20:54 RDW 14.1 % (11.5-20.0) 07/03/17 20:54 Plt Count 206 Th/cmm (150-400) 07/03/17 20:54 MPV 8.4 fl 07/03/17 20:54 Neutrophils % 57.5 % (40.0-80.0) 07/03/17 20:54 Lymphocytes % 29.4 % (20.0-50.0) 07/03/17 20:54 Monocytes % 7.7 % (2.0-10.0) 07/03/17 20:54 Eosinophils % 2.7 % (0.0-5.0) 07/03/17 20:54 Basophils % 2.7 % (0.0-2.0) H 07/03/17 20:54 Sodium 137 mEq/L (136-145) 07/03/17 20:54 Potassium 4.3 mEq/L (3.5-5.1) 07/03/17 20:54 Chloride 105 mEq/L (98-107) 07/03/17 20:54 Carbon Dioxide 28.7 mEq/L (21.0-31.0) 07/03/17 20:54 Anion Gap 7.6 (7.0-16.0) 07/03/17 20:54 BUN 25 mg/dL (7-25) 07/03/17 20:54 Creatinine 0.9 mg/dL (0.7-1.3) 07/03/17 20:54 Est GFR ( Amer) > 60.0 ml/min (>90) 07/03/17 20:54 Est GFR (Non-Af Amer) > 60.0 ml/min 07/03/17 20:54 BUN/Creatinine Ratio 27.8 07/03/17 20:54 Glucose 103 mg/dL (70-105) 07/03/17 20:54 Calcium 10.0 mg/dL (8.6-10.3) 07/03/17 20:54 Total Bilirubin 0.2 mg/dL (0.3-1.0) L 07/03/17 20:54 AST 19 U/L (13-39) 07/03/17 20:54 ALT 15 U/L (7-52) 07/03/17 20:54 Alkaline Phosphatase 88 U/L (34-104) 07/03/17 20:54 Total Protein 6.7 gm/dL (6.0-8.3) 07/03/17 20:54 Albumin 4.0 gm/dL (4.2-5.5) L 07/03/17 20:54 Globulin 2.7 gm/dL 07/03/17 20:54 Albumin/Globulin Ratio 1.5 (1.0-1.8) 07/03/17 20:54 Triglycerides 192 mg/dL (<150) H 07/03/17 20:54 Cholesterol 175 mg/dL (<200) 07/03/17 20:54 LDL Cholesterol Direct 101 mg/dL (75-193) 07/03/17 20:54 HDL Cholesterol 54 mg/dL (23-92) 07/03/17 20:54 TSH 2.72 uIU/ml (0.34-5.60) 07/03/17 20:54 Urine Source CLEAN C 07/03/17 21:20 Urine Color YELLOW 07/03/17 21:20 Urine Clarity CLOUDY (CLEAR) 07/03/17 21:20 Urine pH 6.0 (4.6 - 8.0) 07/03/17 21:20 Ur Specific Barnes 1.025 (1.005-1.030) 07/03/17 21:20 Urine Protein 100 mg/dL (NEGATIVE) H 07/03/17 21:20 Urine Glucose (UA) NEGATIVE mg/dL (NEGATIVE) 07/03/17 21:20 Urine Ketones NEGATIVE mg/dL (NEGATIVE) 07/03/17 21:20 Urine Blood LARGE (NEGATIVE) H 07/03/17 21:20 Urine Nitrate NEGATIVE (NEGATIVE) 07/03/17 21:20 Urine Bilirubin NEGATIVE (NEGATIVE) 07/03/17 21:20 Urine Urobilinogen 0.2 E.U./dL (0.2 - 1.0) 07/03/17 21:20 Ur Leukocyte Esterase MODERATE (NEGATIVE) H 07/03/17 21:20 Urine RBC 25-50 /hpf (0-5) H 07/03/17 21:20 Urine WBC 25-50 /hpf (0-5) H 07/03/17 21:20 Ur Epithelial Cells NONE SEEN /lpf (FEW) 07/03/17 21:20 Urine Bacteria MODERATE /hpf (NONE SEEN) 07/03/17 21:20 Valproic Acid 90.5 ug/mL (50.0-100.0) 07/03/17 20:54 RPR NONREACTIVE (NONREACTIVE) 07/03/17 20:54 - Physical Exam Vitals and I&O: Vital Signs Temp 98.5 F 07/19/17 06:34 Pulse 91 07/19/17 08:56 Resp 20 07/19/17 06:34 BP 140/84 07/19/17 08:56 Pulse Ox 97 07/19/17 06:34 Intake & Output 07/18/17 07/19/17 07/19/17 18:59 06:59 18:59 Intake Total 1680 120 Output Total 1999 700 Balance -320 -580 Intake: Oral 1680 120 Output: Urine 1999 700 Other: # Bowel Movements 1 Active Medications: Current Medications Acetaminophen (Tylenol) 650 mg PO Q4HR PRN PRN Reason: Pain or Fever >101 Stop: 09/01/17 23:19 Last Admin: 07/18/17 21:26 Dose: 650 mg Acetaminophen/Hydrocodone Bitart ([place] 5mg/325mg) 1 tab PO Q6H PRN PRN Reason: Pain (Severe) Stop: 09/01/17 23:19 Last Admin: 07/17/17 17:20 Dose: 1 tab Ascorbic Acid (Vitamin C) 500 mg PO DAILY [facility] Stop: 09/02/17 08:59 Last Admin: 07/19/17 08:57 Dose: 500 mg Aspirin (Aspirin Chewable) 81 mg PO DAILY [facility] Stop: 09/02/17 08:59 Last Admin: 07/19/17 08:57 Dose: 81 mg Bisacodyl (Dulcolax 10 Mg Supp) 10 mg RC DAILY PRN PRN Reason: Constipation Stop: 09/01/17 23:19 Divalproex Sodium (Depakote Dr) 500 mg PO TID [facility] PRN Reason: Protocol Stop: 09/02/17 08:59 Last Admin: 07/19/17 13:19 Dose: 500 mg Docusate Sodium (Colace) 100 mg PO BID [facility] Stop: 09/02/17 08:59 Last Admin: 07/19/17 08:56 Dose: 100 mg Donepezil HCl (Aricept) 5 mg PO HS [facility] Stop: 09/07/17 20:59 Last Admin: 07/18/17 21:19 Dose: 5 mg Ferrous Sulfate (Iron) 325 mg PO TID [facility] Stop: 09/02/17 08:59 Last Admin: 07/19/17 13:19 Dose: 325 mg Magnesium Hydroxide (Milk Of Magnesia) 30 ml PO HS PRN PRN Reason: Constipation Stop: 09/01/17 23:19 Metoprolol Tartrate (Lopressor) 25 mg PO BID [facility] Stop: 09/02/17 08:59 Last Admin: 07/19/17 08:56 Dose: 25 mg Mirtazapine (Remeron) 30 mg PO HS [facility] Stop: 09/02/17 20:59 Last Admin: 07/18/17 21:19 Dose: 30 mg Olanzapine 15 mg/ Olanzapine 2 (.5 mg) 17.5 mg PO HS [facility] Stop: 09/17/17 20:59 Sodium Phosphate (Fleet Enema) 135 ml RC Q48H PRN PRN Reason: Constipation Stop: 09/01/17 23:19 General: demented HEENT: NC/AT, PERRLA, EOMI, anicteric sclerae, throat clear Neck: No JVD, No thyromegaly, +2 carotid pulse wo bruit, No LAD, + JVD Lungs: CTAB Cardiovascular: RRR, Normal S1, Normal S2, without murmur Abdomen: soft, non-tender, non-distended Extremities: clear Neurological: no change Internal Medicine Assmt/Plan - Assessment Assessment: 1.HTNT 2.DEMENTIA - Plan Plan: CONTINUE ON current medication and diet.ADD ENSURE TID. Nutritional Asmnt/Malnutr-PDOC - Dietary Evaluation Malnutrition Findings (Please click <Entered> for more info): Nutritional Asmnt/Malnutrition Start: 07/07/17 18: 41 Text: Status: Complete Freq: Document 07/07/17 18:41 GSUN (Rec: 07/07/17 18:43 [email or web address] [email or web address]) Nutritional Asmnt/Malnutrition Patient General Information Nutritional Screening Moderate Risk Screening Diagnosis Major depression, recurrent with psychosis and dementia Pertinent Medical Hx/Surgical Hx HTN, dementia, depression psychosis Subjective Information 66 year old from SNF. Spoke to pt resting in bed. Pt was pleasant, slight confusion noted. Avg PO intake 69% of meals since adm, meeting nutritional needs. Pt stated good appetite. Pt is edentulous, denied difficulties eating, deneid sore jaw. Pt denied nutritional concerns at this time. Pt appeared lean, mild wasting to chest and shoudlers noted. Current Diet Order/ Nutrition Support Regular, cranberry juice TID Pertinent Medications Vitamin C, Colace, Iron, Culturelle, MOM, Remeron, Fleet Enema Pertinent Labs Reviewed. Nutritional Hx/Data Height 1.68 m Height (Calculated Centimeters) 167.6 Current Weight (lbs) 59.511 kg Weight (Calculated Kilograms) 59.5 Weight (Calculated Grams) 18688.3 Latty Body Weight 142 Weight Status Approriate GI Symptoms Usual diet at home [facility]: regular Skin Integrity/Comment: Andrae 16. Current %PO Fair (50-74%) Estimated Nutritional Goals BEE in Kcals: Using Current wt Calories/Kcals/Kg CBW 131.2lb/59.6kg Kcals Calculated 1490-1788kcal (25-30kcal/kg) Protein: Using Current wt Protein Calculated 60g (1g/kg) Fluid: ml 1490-1788ml (1ml/kcal) Nutritional Problem 1. Problem Problem No nutritional problem at this time. Intervention/Recommendation Comments 1. Continue with current diet order. Avg PO intake is adequate. Expected Outcomes/Goals Expected Outcomes/Goals 1. PO intake conitnue to meet at least 75% of estimated nutritional needs.
[2017-07-19] MEDS: OLANZapine 15 MG, OLANZapine 2.5 MG PO SCH (20:39)
--- NOTE | 2017-07-19 23:13 | Progress Notes ---
DATE: 07/19/2017 Dr. Crandall covering for Dr. Gregg. SUBJECTIVE: Chart reviewed and the patient interviewed. Also discussed the patient's condition with the staff and reviewed records and labs. The patient still has episodes of yelling and screaming. Also still isolative and withdrawn and wants to be left alone. The patient also is talking to himself and he is still paranoid and impulsive. Also unable to make any safe plan for self-care or discharge. During the interview, the patient is rambling and he has disorganized thoughts and seems to be preoccupied. ASSESSMENT: The patient is still psychotic and considered to be gravely disabled. TREATMENT PLAN: Dr. Gregg increased Zyprexa yesterday to 17.5 mg at bedtime. We will continue same dose and we will continue working on his ineffective coping and his paranoia. [facility]# [id number]
[2017-07-20] MEDS: Aspirin 81mg Chewable Tab PO SCH (08:26)
[2017-07-20] MEDS: Hydrocodone/APAP 5mg/325mg Tab PO PRN ×2 (08:26→14:48)
[2017-07-20] MEDS: Ferrous Sulfate 325 MG TAB PO SCH ×3 (08:26→21:03)
[2017-07-20] MEDS: Multivitamin w/ Minerals Tab PO SCH (08:26)
--- NOTE | 2017-07-20 18:13 | Progress Notes ---
DATE: 07/20/2017 SUBJECTIVE: Chart reviewed and the patient interviewed. Also discussed the patient's condition with the staff and reviewed records and labs. The patient is still anxious and is still withdrawn. The patient also is interacting minimally with others. The patient also still wants to stay by himself in his room most of the time. He also seems to be preoccupied and is still responding. Unpredictable behavior. ASSESSMENT: The patient is still psychotic. TREATMENT PLAN: We will continue monitoring his behavior and his condition and we will continue adjusting psychotropic medications. Also, working on discharge plans and placement issue. [facility]# [id number]
--- NOTE | 2017-07-20 19:08 | Internal Medicine Prog Note ---
Internal Medicine Subjective - Subjective Service Date: 07/20/17 Patient seen and examined:: with staff Patient is:: awake, in bed, talking, confused Per staff patient has:: no adverse event Internal Medicine Objective - Results Result Diagrams: 07/03/17 20:54 07/03/17 20:54 Recent Labs: Laboratory Last Values WBC 7.1 Th/cmm (4.8-10.8) 07/03/17 20:54 RBC 4.74 Mil/cmm (3.80-5.80) 07/03/17 20:54 Hgb 14.7 gm/dL (12.6-17.4) 07/03/17 20:54 Hct 44.3 % (39.0-49.0) 07/03/17 20:54 MCV 93.4 fl (80-99) 07/03/17 20:54 MCH 30.9 pg (27.0-31.0) 07/03/17 20:54 MCHC Differential 33.1 pg (28.0-36.0) 07/03/17 20:54 RDW 14.1 % (11.5-20.0) 07/03/17 20:54 Plt Count 206 Th/cmm (150-400) 07/03/17 20:54 MPV 8.4 fl 07/03/17 20:54 Neutrophils % 57.5 % (40.0-80.0) 07/03/17 20:54 Lymphocytes % 29.4 % (20.0-50.0) 07/03/17 20:54 Monocytes % 7.7 % (2.0-10.0) 07/03/17 20:54 Eosinophils % 2.7 % (0.0-5.0) 07/03/17 20:54 Basophils % 2.7 % (0.0-2.0) H 07/03/17 20:54 Sodium 137 mEq/L (136-145) 07/03/17 20:54 Potassium 4.3 mEq/L (3.5-5.1) 07/03/17 20:54 Chloride 105 mEq/L (98-107) 07/03/17 20:54 Carbon Dioxide 28.7 mEq/L (21.0-31.0) 07/03/17 20:54 Anion Gap 7.6 (7.0-16.0) 07/03/17 20:54 BUN 25 mg/dL (7-25) 07/03/17 20:54 Creatinine 0.9 mg/dL (0.7-1.3) 07/03/17 20:54 Est GFR ( Amer) > 60.0 ml/min (>90) 07/03/17 20:54 Est GFR (Non-Af Amer) > 60.0 ml/min 07/03/17 20:54 BUN/Creatinine Ratio 27.8 07/03/17 20:54 Glucose 103 mg/dL (70-105) 07/03/17 20:54 Calcium 10.0 mg/dL (8.6-10.3) 07/03/17 20:54 Total Bilirubin 0.2 mg/dL (0.3-1.0) L 07/03/17 20:54 AST 19 U/L (13-39) 07/03/17 20:54 ALT 15 U/L (7-52) 07/03/17 20:54 Alkaline Phosphatase 88 U/L (34-104) 07/03/17 20:54 Total Protein 6.7 gm/dL (6.0-8.3) 07/03/17 20:54 Albumin 4.0 gm/dL (4.2-5.5) L 07/03/17 20:54 Globulin 2.7 gm/dL 07/03/17 20:54 Albumin/Globulin Ratio 1.5 (1.0-1.8) 07/03/17 20:54 Triglycerides 192 mg/dL (<150) H 07/03/17 20:54 Cholesterol 175 mg/dL (<200) 07/03/17 20:54 LDL Cholesterol Direct 101 mg/dL (75-193) 07/03/17 20:54 HDL Cholesterol 54 mg/dL (23-92) 07/03/17 20:54 TSH 2.72 uIU/ml (0.34-5.60) 07/03/17 20:54 Urine Source CLEAN C 07/03/17 21:20 Urine Color YELLOW 07/03/17 21:20 Urine Clarity CLOUDY (CLEAR) 07/03/17 21:20 Urine pH 6.0 (4.6 - 8.0) 07/03/17 21:20 Ur Specific [place] 1.025 (1.005-1.030) 07/03/17 21:20 Urine Protein 100 mg/dL (NEGATIVE) H 07/03/17 21:20 Urine Glucose (UA) NEGATIVE mg/dL (NEGATIVE) 07/03/17 21:20 Urine Ketones NEGATIVE mg/dL (NEGATIVE) 07/03/17 21:20 Urine Blood LARGE (NEGATIVE) H 07/03/17 21:20 Urine Nitrate NEGATIVE (NEGATIVE) 07/03/17 21:20 Urine Bilirubin NEGATIVE (NEGATIVE) 07/03/17 21:20 Urine Urobilinogen 0.2 E.U./dL (0.2 - 1.0) 07/03/17 21:20 Ur Leukocyte Esterase MODERATE (NEGATIVE) H 07/03/17 21:20 Urine RBC 25-50 /hpf (0-5) H 07/03/17 21:20 Urine WBC 25-50 /hpf (0-5) H 07/03/17 21:20 Ur Epithelial Cells NONE SEEN /lpf (FEW) 07/03/17 21:20 Urine Bacteria MODERATE /hpf (NONE SEEN) 07/03/17 21:20 Valproic Acid 90.5 ug/mL (50.0-100.0) 07/03/17 20:54 RPR NONREACTIVE (NONREACTIVE) 07/03/17 20:54 - Physical Exam Vitals and I&O: Vital Signs Temp 97.2 F 07/20/17 14:00 Pulse 58 07/20/17 14:00 Resp 18 07/20/17 14:00 BP 92/54 07/20/17 14:00 Pulse Ox 97 07/20/17 14:00 Intake & Output 07/20/17 07/20/17 07/21/17 06:59 18:59 06:59 Intake Total 2400 Output Total 1000 Balance 1400 Intake: Oral 2400 Output: Urine 1000 Other: # Voids 0 # Bowel Movements 0 0 Active Medications: Current Medications Acetaminophen (Tylenol) 650 mg PO Q4HR PRN PRN Reason: Pain or Fever >101 Stop: 09/01/17 23:19 Last Admin: 07/19/17 20:37 Dose: 650 mg Acetaminophen/Hydrocodone Bitart ([place] 5mg/325mg) 1 tab PO Q6H PRN PRN Reason: Pain (Severe) Stop: 09/01/17 23:19 Last Admin: 07/20/17 14:48 Dose: 1 tab Ascorbic Acid (Vitamin C) 500 mg PO DAILY [facility] Stop: 09/02/17 08:59 Last Admin: 07/20/17 08:27 Dose: 500 mg Aspirin (Aspirin Chewable) 81 mg PO DAILY [facility] Stop: 09/02/17 08:59 Last Admin: 07/20/17 08:26 Dose: 81 mg Bisacodyl (Dulcolax 10 Mg Supp) 10 mg RC DAILY PRN PRN Reason: Constipation Stop: 09/01/17 23:19 Divalproex Sodium (Depakote Dr) 500 mg PO TID [facility] PRN Reason: Protocol Stop: 09/02/17 08:59 Last Admin: 07/20/17 14:48 Dose: 500 mg Docusate Sodium (Colace) 100 mg PO BID [facility] Stop: 09/02/17 08:59 Last Admin: 07/20/17 16:50 Dose: 100 mg Donepezil HCl (Aricept) 5 mg PO HS [facility] Stop: 09/07/17 20:59 Last Admin: 07/19/17 20:38 Dose: 5 mg Ferrous Sulfate (Iron) 325 mg PO TID [facility] Stop: 09/02/17 08:59 Last Admin: 07/20/17 14:48 Dose: 325 mg Magnesium Hydroxide (Milk Of Magnesia) 30 ml PO HS PRN PRN Reason: Constipation Stop: 09/01/17 23:19 Metoprolol Tartrate (Lopressor) 25 mg PO BID [facility] Stop: 09/02/17 08:59 Last Admin: 07/20/17 16:50 Dose: Not Given Mirtazapine (Remeron) 30 mg PO HS [facility] Stop: 09/02/17 20:59 Last Admin: 07/19/17 20:38 Dose: 30 mg Olanzapine 15 mg/ Olanzapine 2 (.5 mg) 17.5 mg PO HS [facility] Stop: 09/17/17 20:59 Last Admin: 07/19/17 20:39 Dose: 17.5 mg Sodium Phosphate (Fleet Enema) 135 ml RC Q48H PRN PRN Reason: Constipation Stop: 09/01/17 23:19 General: demented HEENT: NC/AT, PERRLA, EOMI, anicteric sclerae, throat clear Neck: No JVD, No thyromegaly, +2 carotid pulse wo bruit, No LAD, + JVD Lungs: CTAB Cardiovascular: RRR, Normal S1, Normal S2, without murmur Abdomen: soft, non-tender, non-distended Extremities: clear Neurological: no change Internal Medicine Assmt/Plan - Assessment Assessment: 1.HTNT 2.DEMENTIA - Plan Plan: CONTINUE ON current medication and diet.cbc and cmp in am. Nutritional Asmnt/Malnutr-PDOC - Dietary Evaluation Malnutrition Findings (Please click <Entered> for more info): Nutritional Asmnt/Malnutrition Start: 07/07/17 18: 41 Text: Status: Complete Freq: Document 07/07/17 18:41 GSUN (Rec: 07/07/17 18:43 [email or web address] [email or web address]) Nutritional Asmnt/Malnutrition Patient General Information Nutritional Screening Moderate Risk Screening Diagnosis Major depression, recurrent with psychosis and dementia Pertinent Medical Hx/Surgical Hx HTN, dementia, depression psychosis Subjective Information 66 year old from SNF. Spoke to pt resting in bed. Pt was pleasant, slight confusion noted. Avg PO intake 69% of meals since adm, meeting nutritional needs. Pt stated good appetite. Pt is edentulous, denied difficulties eating, deneid sore jaw. Pt denied nutritional concerns at this time. Pt appeared lean, mild wasting to chest and shoudlers noted. Current Diet Order/ Nutrition Support Regular, cranberry juice TID Pertinent Medications Vitamin C, Colace, Iron, Culturelle, MOM, Remeron, Fleet Enema Pertinent Labs Reviewed. Nutritional Hx/Data Height 1.68 m Height (Calculated Centimeters) 167.6 Current Weight (lbs) 59.511 kg Weight (Calculated Kilograms) 59.5 Weight (Calculated Grams) 38638.3 Gamaliel Body Weight 142 Weight Status Approriate GI Symptoms Usual diet at home [facility]: regular Skin Integrity/Comment: Andrae 16. Current %PO Fair (50-74%) Estimated Nutritional Goals BEE in Kcals: Using Current wt Calories/Kcals/Kg CBW 131.2lb/59.6kg Kcals Calculated 1490-1788kcal (25-30kcal/kg) Protein: Using Current wt Protein Calculated 60g (1g/kg) Fluid: ml 1490-1788ml (1ml/kcal) Nutritional Problem 1. Problem Problem No nutritional problem at this time. Intervention/Recommendation Comments 1. Continue with current diet order. Avg PO intake is adequate. Expected Outcomes/Goals Expected Outcomes/Goals 1. PO intake conitnue to meet at least 75% of estimated nutritional needs.
[2017-07-20] MEDS: OLANZapine 15 MG, OLANZapine 2.5 MG PO SCH (21:04)
[2017-07-21] MEDS: Ferrous Sulfate 325 MG TAB PO SCH ×3 (08:11→21:10)
[2017-07-21] MEDS: Multivitamin w/ Minerals Tab PO SCH (08:11)
[2017-07-21] MEDS: Aspirin 81mg Chewable Tab PO SCH (08:12)
[2017-07-21 12:05] LABS: ALB/GLOB RATIO 1.4 (1.0-1.8); ALKALINE PHOSPHATASE 75 U/L (34-104); ANION GAP 8.3 (7.0-16.0); BILIRUBIN,TOTAL 0.3 mg/dL (0.3-1.0); BUN - UREA NITROGEN 17 mg/dL (7-25); BUN/CREATININE RATIO 21.3; CALCIUM SERUM 9.5 mg/dL (8.6-10.3); CARBON DIOXIDE 28.4 mEq/L (21.0-31.0); CHLORIDE 105 mEq/L (98-107); CREATININE - SERUM 0.8 mg/dL (0.7-1.3); GLUCOSE 88 mg/dL (70-105); POTASSIUM SERUM 4.7 mEq/L (3.5-5.1); SGOT 13 U/L (13-39); SGPT/ALT 10 U/L (7-52); SODIUM SERUM 137 mEq/L (136-145)
[2017-07-21] MEDS: Hydrocodone/APAP 5mg/325mg Tab PO PRN (14:22)
[2017-07-21] MEDS: OLANZapine 15 MG, OLANZapine 2.5 MG PO SCH (21:09)
--- NOTE | 2017-07-21 21:58 | Internal Medicine Prog Note ---
Internal Medicine Subjective - Subjective Service Date: 07/21/17 Patient seen and examined:: without staff Patient is:: awake, in bed, talking, confused Per staff patient has:: no adverse event Internal Medicine Objective - Results Result Diagrams: 07/03/17 20:54 07/21/17 11:41 Recent Labs: Laboratory Last Values WBC 7.1 Th/cmm (4.8-10.8) 07/03/17 20:54 RBC 4.74 Mil/cmm (3.80-5.80) 07/03/17 20:54 Hgb 14.7 gm/dL (12.6-17.4) 07/03/17 20:54 Hct 44.3 % (39.0-49.0) 07/03/17 20:54 MCV 93.4 fl (80-99) 07/03/17 20:54 MCH 30.9 pg (27.0-31.0) 07/03/17 20:54 MCHC Differential 33.1 pg (28.0-36.0) 07/03/17 20:54 RDW 14.1 % (11.5-20.0) 07/03/17 20:54 Plt Count 206 Th/cmm (150-400) 07/03/17 20:54 MPV 8.4 fl 07/03/17 20:54 Neutrophils % 57.5 % (40.0-80.0) 07/03/17 20:54 Lymphocytes % 29.4 % (20.0-50.0) 07/03/17 20:54 Monocytes % 7.7 % (2.0-10.0) 07/03/17 20:54 Eosinophils % 2.7 % (0.0-5.0) 07/03/17 20:54 Basophils % 2.7 % (0.0-2.0) H 07/03/17 20:54 Sodium 137 mEq/L (136-145) 07/21/17 11:41 Potassium 4.7 mEq/L (3.5-5.1) 07/21/17 11:41 Chloride 105 mEq/L (98-107) 07/21/17 11:41 Carbon Dioxide 28.4 mEq/L (21.0-31.0) 07/21/17 11:41 Anion Gap 8.3 (7.0-16.0) 07/21/17 11:41 BUN 17 mg/dL (7-25) 07/21/17 11:41 Creatinine 0.8 mg/dL (0.7-1.3) 07/21/17 11:41 Est GFR ( Amer) > 60.0 ml/min (>90) 07/21/17 11:41 Est GFR (Non-Af Amer) > 60.0 ml/min 07/21/17 11:41 BUN/Creatinine Ratio 21.3 07/21/17 11:41 Glucose 88 mg/dL (70-105) 07/21/17 11:41 Calcium 9.5 mg/dL (8.6-10.3) 07/21/17 11:41 Total Bilirubin 0.3 mg/dL (0.3-1.0) 07/21/17 11:41 AST 13 U/L (13-39) 07/21/17 11:41 ALT 10 U/L (7-52) 07/21/17 11:41 Alkaline Phosphatase 75 U/L (34-104) 07/21/17 11:41 Total Protein 5.9 gm/dL (6.0-8.3) L 07/21/17 11:41 Albumin 3.4 gm/dL (4.2-5.5) L 07/21/17 11:41 Globulin 2.5 gm/dL 07/21/17 11:41 Albumin/Globulin Ratio 1.4 (1.0-1.8) 07/21/17 11:41 Triglycerides 192 mg/dL (<150) H 07/03/17 20:54 Cholesterol 175 mg/dL (<200) 07/03/17 20:54 LDL Cholesterol Direct 101 mg/dL (75-193) 07/03/17 20:54 HDL Cholesterol 54 mg/dL (23-92) 07/03/17 20:54 TSH 2.72 uIU/ml (0.34-5.60) 07/03/17 20:54 Urine Source CLEAN C 07/03/17 21:20 Urine Color YELLOW 07/03/17 21:20 Urine Clarity CLOUDY (CLEAR) 07/03/17 21:20 Urine pH 6.0 (4.6 - 8.0) 07/03/17 21:20 Ur Specific [place] 1.025 (1.005-1.030) 07/03/17 21:20 Urine Protein 100 mg/dL (NEGATIVE) H 07/03/17 21:20 Urine Glucose (UA) NEGATIVE mg/dL (NEGATIVE) 07/03/17 21:20 Urine Ketones NEGATIVE mg/dL (NEGATIVE) 07/03/17 21:20 Urine Blood LARGE (NEGATIVE) H 07/03/17 21:20 Urine Nitrate NEGATIVE (NEGATIVE) 07/03/17 21:20 Urine Bilirubin NEGATIVE (NEGATIVE) 07/03/17 21:20 Urine Urobilinogen 0.2 E.U./dL (0.2 - 1.0) 07/03/17 21:20 Ur Leukocyte Esterase MODERATE (NEGATIVE) H 07/03/17 21:20 Urine RBC 25-50 /hpf (0-5) H 07/03/17 21:20 Urine WBC 25-50 /hpf (0-5) H 07/03/17 21:20 Ur Epithelial Cells NONE SEEN /lpf (FEW) 07/03/17 21:20 Urine Bacteria MODERATE /hpf (NONE SEEN) 07/03/17 21:20 Valproic Acid 90.5 ug/mL (50.0-100.0) 07/03/17 20:54 RPR NONREACTIVE (NONREACTIVE) 07/03/17 20:54 - Physical Exam Vitals and I&O: Vital Signs Temp 97.9 F 07/21/17 20:18 Pulse 62 07/21/17 20:18 Resp 18 07/21/17 20:18 BP 96/57 07/21/17 20:18 Pulse Ox 97 07/21/17 20:18 Intake & Output 07/21/17 07/21/17 07/22/17 06:59 18:59 06:59 Intake Total 120 950 240 Output Total 900 400 Balance 120 50 -160 Weight (lbs) 63.095 kg Intake: Oral 120 950 240 Output: Urine 900 400 Other: # Voids 3 # Bowel Movements 0 0 Active Medications: Current Medications Acetaminophen (Tylenol) 650 mg PO Q4HR PRN PRN Reason: Pain or Fever >101 Stop: 09/01/17 23:19 Last Admin: 07/21/17 21:13 Dose: 650 mg Acetaminophen/Hydrocodone Bitart ([place] 5mg/325mg) 1 tab PO Q6H PRN PRN Reason: Pain (Severe) Stop: 09/01/17 23:19 Last Admin: 07/21/17 14:22 Dose: 1 tab Ascorbic Acid (Vitamin C) 500 mg PO DAILY [facility] Stop: 09/02/17 08:59 Last Admin: 07/21/17 08:11 Dose: 500 mg Aspirin (Aspirin Chewable) 81 mg PO DAILY [facility] Stop: 09/02/17 08:59 Last Admin: 07/21/17 08:12 Dose: 81 mg Bisacodyl (Dulcolax 10 Mg Supp) 10 mg RC DAILY PRN PRN Reason: Constipation Stop: 09/01/17 23:19 Divalproex Sodium (Depakote Dr) 500 mg PO TID [facility] PRN Reason: Protocol Stop: 09/02/17 08:59 Last Admin: 07/21/17 21:10 Dose: 500 mg Docusate Sodium (Colace) 100 mg PO BID [facility] Stop: 09/02/17 08:59 Last Admin: 07/21/17 16:31 Dose: 100 mg Donepezil HCl (Aricept) 5 mg PO HS [facility] Stop: 09/07/17 20:59 Last Admin: 07/21/17 21:09 Dose: 5 mg Ferrous Sulfate (Iron) 325 mg PO TID [facility] Stop: 09/02/17 08:59 Last Admin: 07/21/17 21:10 Dose: 325 mg Magnesium Hydroxide (Milk Of Magnesia) 30 ml PO HS PRN PRN Reason: Constipation Stop: 09/01/17 23:19 Last Admin: 07/20/17 21:04 Dose: 30 ml Metoprolol Tartrate (Lopressor) 25 mg PO BID [facility] Stop: 09/02/17 08:59 Last Admin: 07/21/17 16:11 Dose: Not Given Mirtazapine (Remeron) 30 mg PO HS [facility] Stop: 09/02/17 20:59 Last Admin: 07/21/17 21:09 Dose: 30 mg Olanzapine 15 mg/ Olanzapine 2 (.5 mg) 17.5 mg PO HS [facility] Stop: 09/17/17 20:59 Last Admin: 07/21/17 21:09 Dose: 17.5 mg Sodium Phosphate (Fleet Enema) 135 ml RC Q48H PRN PRN Reason: Constipation Stop: 09/01/17 23:19 General: demented HEENT: NC/AT, PERRLA, EOMI, anicteric sclerae, throat clear Neck: No JVD, No thyromegaly, +2 carotid pulse wo bruit, No LAD, + JVD Lungs: CTAB Cardiovascular: RRR, Normal S1, Normal S2, without murmur Abdomen: soft, non-tender, non-distended Extremities: clear Neurological: no change Internal Medicine Assmt/Plan - Assessment Assessment: 1.HTNT 2.DEMENTIA - Plan Plan: CONTINUE ON current medication and diet Nutritional Asmnt/Malnutr-PDOC - Dietary Evaluation Malnutrition Findings (Please click <Entered> for more info): Nutritional Asmnt/Malnutrition Start: 07/07/17 18: 41 Text: Status: Complete Freq: Document 07/07/17 18:41 GSUN (Rec: 07/07/17 18:43 [email or web address] [email or web address]) Nutritional Asmnt/Malnutrition Patient General Information Nutritional Screening Moderate Risk Screening Diagnosis Major depression, recurrent with psychosis and dementia Pertinent Medical Hx/Surgical Hx HTN, dementia, depression psychosis Subjective Information 66 year old from SNF. Spoke to pt resting in bed. Pt was pleasant, slight confusion noted. Avg PO intake 69% of meals since adm, meeting nutritional needs. Pt stated good appetite. Pt is edentulous, denied difficulties eating, deneid sore jaw. Pt denied nutritional concerns at this time. Pt appeared lean, mild wasting to chest and shoudlers noted. Current Diet Order/ Nutrition Support Regular, cranberry juice TID Pertinent Medications Vitamin C, Colace, Iron, Culturelle, MOM, Remeron, Fleet Enema Pertinent Labs Reviewed. Nutritional Hx/Data Height 1.68 m Height (Calculated Centimeters) 167.6 Current Weight (lbs) 59.511 kg Weight (Calculated Kilograms) 59.5 Weight (Calculated Grams) 83828.3 [place] Body Weight 142 Weight Status Approriate GI Symptoms Usual diet at home [facility]: regular Skin Integrity/Comment: Andrae 16. Current %PO Fair (50-74%) Estimated Nutritional Goals BEE in Kcals: Using Current wt Calories/Kcals/Kg CBW 131.2lb/59.6kg Kcals Calculated 1490-1788kcal (25-30kcal/kg) Protein: Using Current wt Protein Calculated 60g (1g/kg) Fluid: ml 1490-1788ml (1ml/kcal) Nutritional Problem 1. Problem Problem No nutritional problem at this time. Intervention/Recommendation Comments 1. Continue with current diet order. Avg PO intake is adequate. Expected Outcomes/Goals Expected Outcomes/Goals 1. PO intake conitnue to meet at least 75% of estimated nutritional needs.
--- NOTE | 2017-07-21 23:31 | Progress Notes ---
DATE: SUBJECTIVE: Case was discussed with staff of the patient, reviewed records. The patient continues to have poor insight, unpredictable, impulsive, needing redirection. Continues to be psychotic, having poor insight. Unable to participate in a meaningful conversation or make safe plan for self-care. He is compliant with the medication with no side effects, no sedation, no nausea, no extrapyramidal symptoms. He tolerated the increase in olanzapine with no side effects, no sedation, no nausea, no extrapyramidal symptoms. PLAN OF CARE: We will continue to work with the patient in group therapy, milieu therapy, adjust the medication as needed. JOB# [id number]
[2017-07-22 07:34] LABS: % BASOPHILS 0.9 % (0.0-2.0); % EOSINOPHILS 2.2 % (0.0-5.0); % LYMPHOCYTES 21.2 % (20.0-50.0); % MONOCYTES 9.4 % (2.0-10.0); % NEUTROPHILS 66.3 % (40.0-80.0); HEMATOCRIT 37.3 % (41.0-60); HEMOGLOBIN 12.7 gm/dL (12-16); MEAN CELL VOLUME 93.7 fl (80-99); MEAN CORPUSCULAR HGB CONC 34.2 pg (28.0-36.0); MEAN PLATELET VOLUME 8.2 fl; NEUTROPHILE ABSOLUTE 5.3 Th/cmm (1.8-8.0); PLATELET COUNT 203 Th/cmm (150-400); RED BLOOD COUNT 3.98 Mil/cmm (3.80-5.80); RED CELL DISTRIBUTION WIDTH 14.7 % (11.5-20.0); WHITE BLOOD COUNT 8.1 Th/cmm (4.8-10.8)
[2017-07-22] MEDS: Aspirin 81mg Chewable Tab PO SCH (08:13)
[2017-07-22] MEDS: Ferrous Sulfate 325 MG TAB PO SCH ×3 (08:13→20:29)
[2017-07-22] MEDS: Multivitamin w/ Minerals Tab PO SCH (08:13)
--- NOTE | 2017-07-22 11:32 | Internal Medicine Prog Note ---
Internal Medicine Subjective - Subjective Service Date: 07/22/17 Patient seen and examined:: without staff Patient is:: awake, in bed, talking, confused Per staff patient has:: no adverse event Internal Medicine Objective - Results Result Diagrams: 07/22/17 07:10 07/21/17 11:41 Recent Labs: Laboratory Last Values WBC 8.1 Th/cmm (4.8-10.8) 07/22/17 07:10 RBC 3.98 Mil/cmm (3.80-5.80) 07/22/17 07:10 Hgb 12.7 gm/dL (12-16) D 07/22/17 07:10 Hct 37.3 % (41.0-60) L D 07/22/17 07:10 MCV 93.7 fl (80-99) 07/22/17 07:10 MCH 32.0 pg (27.0-31.0) H 07/22/17 07:10 MCHC Differential 34.2 pg (28.0-36.0) 07/22/17 07:10 RDW 14.7 % (11.5-20.0) 07/22/17 07:10 Plt Count 203 Th/cmm (150-400) 07/22/17 07:10 MPV 8.2 fl 07/22/17 07:10 Neutrophils % 66.3 % (40.0-80.0) 07/22/17 07:10 Lymphocytes % 21.2 % (20.0-50.0) 07/22/17 07:10 Monocytes % 9.4 % (2.0-10.0) 07/22/17 07:10 Eosinophils % 2.2 % (0.0-5.0) 07/22/17 07:10 Basophils % 0.9 % (0.0-2.0) 07/22/17 07:10 Sodium 137 mEq/L (136-145) 07/21/17 11:41 Potassium 4.7 mEq/L (3.5-5.1) 07/21/17 11:41 Chloride 105 mEq/L (98-107) 07/21/17 11:41 Carbon Dioxide 28.4 mEq/L (21.0-31.0) 07/21/17 11:41 Anion Gap 8.3 (7.0-16.0) 07/21/17 11:41 BUN 17 mg/dL (7-25) 07/21/17 11:41 Creatinine 0.8 mg/dL (0.7-1.3) 07/21/17 11:41 Est GFR ( Amer) > 60.0 ml/min (>90) 07/21/17 11:41 Est GFR (Non-Af Amer) > 60.0 ml/min 07/21/17 11:41 BUN/Creatinine Ratio 21.3 07/21/17 11:41 Glucose 88 mg/dL (70-105) 07/21/17 11:41 Calcium 9.5 mg/dL (8.6-10.3) 07/21/17 11:41 Total Bilirubin 0.3 mg/dL (0.3-1.0) 07/21/17 11:41 AST 13 U/L (13-39) 07/21/17 11:41 ALT 10 U/L (7-52) 07/21/17 11:41 Alkaline Phosphatase 75 U/L (34-104) 07/21/17 11:41 Total Protein 5.9 gm/dL (6.0-8.3) L 07/21/17 11:41 Albumin 3.4 gm/dL (4.2-5.5) L 07/21/17 11:41 Globulin 2.5 gm/dL 07/21/17 11:41 Albumin/Globulin Ratio 1.4 (1.0-1.8) 07/21/17 11:41 Triglycerides 192 mg/dL (<150) H 07/03/17 20:54 Cholesterol 175 mg/dL (<200) 07/03/17 20:54 LDL Cholesterol Direct 101 mg/dL (75-193) 07/03/17 20:54 HDL Cholesterol 54 mg/dL (23-92) 07/03/17 20:54 TSH 2.72 uIU/ml (0.34-5.60) 07/03/17 20:54 Urine Source CLEAN C 07/03/17 21:20 Urine Color YELLOW 07/03/17 21:20 Urine Clarity CLOUDY (CLEAR) 07/03/17 21:20 Urine pH 6.0 (4.6 - 8.0) 07/03/17 21:20 Ur Specific [place] 1.025 (1.005-1.030) 07/03/17 21:20 Urine Protein 100 mg/dL (NEGATIVE) H 07/03/17 21:20 Urine Glucose (UA) NEGATIVE mg/dL (NEGATIVE) 07/03/17 21:20 Urine Ketones NEGATIVE mg/dL (NEGATIVE) 07/03/17 21:20 Urine Blood LARGE (NEGATIVE) H 07/03/17 21:20 Urine Nitrate NEGATIVE (NEGATIVE) 07/03/17 21:20 Urine Bilirubin NEGATIVE (NEGATIVE) 07/03/17 21:20 Urine Urobilinogen 0.2 E.U./dL (0.2 - 1.0) 07/03/17 21:20 Ur Leukocyte Esterase MODERATE (NEGATIVE) H 07/03/17 21:20 Urine RBC 25-50 /hpf (0-5) H 07/03/17 21:20 Urine WBC 25-50 /hpf (0-5) H 07/03/17 21:20 Ur Epithelial Cells NONE SEEN /lpf (FEW) 07/03/17 21:20 Urine Bacteria MODERATE /hpf (NONE SEEN) 07/03/17 21:20 Valproic Acid 90.5 ug/mL (50.0-100.0) 07/03/17 20:54 RPR NONREACTIVE (NONREACTIVE) 07/03/17 20:54 - Physical Exam Vitals and I&O: Vital Signs Temp 97.9 F 07/22/17 05:56 Pulse 56 07/22/17 05:56 Resp 19 07/22/17 05:56 BP 122/70 07/22/17 05:56 Pulse Ox 96 07/22/17 05:56 Intake & Output 07/21/17 07/22/17 07/22/17 18:59 06:59 18:59 Intake Total 950 280 Output Total 900 800 Balance 50 -520 Weight (lbs) 63.095 kg Intake: Oral 950 280 Output: Urine 900 800 Other: # Voids 1 # Bowel Movements 0 1 Active Medications: Current Medications Acetaminophen (Tylenol) 650 mg PO Q4HR PRN PRN Reason: Pain or Fever >101 Stop: 09/01/17 23:19 Last Admin: 07/22/17 06:02 Dose: 650 mg Acetaminophen/Hydrocodone Bitart ([place] 5mg/325mg) 1 tab PO Q6H PRN PRN Reason: Pain (Severe) Stop: 09/01/17 23:19 Last Admin: 07/21/17 14:22 Dose: 1 tab Ascorbic Acid (Vitamin C) 500 mg PO DAILY [facility] Stop: 09/02/17 08:59 Last Admin: 07/22/17 08:13 Dose: 500 mg Aspirin (Aspirin Chewable) 81 mg PO DAILY [facility] Stop: 09/02/17 08:59 Last Admin: 07/22/17 08:13 Dose: 81 mg Bisacodyl (Dulcolax 10 Mg Supp) 10 mg RC DAILY PRN PRN Reason: Constipation Stop: 09/01/17 23:19 Divalproex Sodium (Depakote Dr) 500 mg PO TID [facility] PRN Reason: Protocol Stop: 09/02/17 08:59 Last Admin: 07/22/17 08:13 Dose: 500 mg Docusate Sodium (Colace) 100 mg PO BID [facility] Stop: 09/02/17 08:59 Last Admin: 07/22/17 08:13 Dose: 100 mg Donepezil HCl (Aricept) 5 mg PO HS [facility] Stop: 09/07/17 20:59 Last Admin: 07/21/17 21:09 Dose: 5 mg Ferrous Sulfate (Iron) 325 mg PO TID [facility] Stop: 09/02/17 08:59 Last Admin: 07/22/17 08:13 Dose: 325 mg Magnesium Hydroxide (Milk Of Magnesia) 30 ml PO HS PRN PRN Reason: Constipation Stop: 09/01/17 23:19 Last Admin: 07/20/17 21:04 Dose: 30 ml Metoprolol Tartrate (Lopressor) 25 mg PO BID [facility] Stop: 09/02/17 08:59 Last Admin: 07/22/17 08:14 Dose: Not Given Mirtazapine (Remeron) 30 mg PO HS [facility] Stop: 09/02/17 20:59 Last Admin: 07/21/17 21:09 Dose: 30 mg Olanzapine 15 mg/ Olanzapine 2 (.5 mg) 17.5 mg PO HS [facility] Stop: 09/17/17 20:59 Last Admin: 07/21/17 21:09 Dose: 17.5 mg Sodium Phosphate (Fleet Enema) 135 ml RC Q48H PRN PRN Reason: Constipation Stop: 09/01/17 23:19 General: demented HEENT: NC/AT, PERRLA, EOMI, anicteric sclerae, throat clear Neck: No JVD, No thyromegaly, +2 carotid pulse wo bruit, No LAD, + JVD Lungs: CTAB Cardiovascular: RRR, Normal S1, Normal S2, without murmur Abdomen: soft, non-tender, non-distended Extremities: clear Neurological: no change Internal Medicine Assmt/Plan - Assessment Assessment: 1.HTNT 2.DEMENTIA - Plan Plan: CONTINUE ON current medication and diet Nutritional Asmnt/Malnutr-PDOC - Dietary Evaluation Malnutrition Findings (Please click <Entered> for more info): Nutritional Asmnt/Malnutrition Start: 07/07/17 18: 41 Text: Status: Complete Freq: Document 07/07/17 18:41 GSUN (Rec: 07/07/17 18:43 [email or web address] [email or web address]) Nutritional Asmnt/Malnutrition Patient General Information Nutritional Screening Moderate Risk Screening Diagnosis Major depression, recurrent with psychosis and dementia Pertinent Medical Hx/Surgical Hx HTN, dementia, depression psychosis Subjective Information 66 year old from SNF. Spoke to pt resting in bed. Pt was pleasant, slight confusion noted. Avg PO intake 69% of meals since adm, meeting nutritional needs. Pt stated good appetite. Pt is edentulous, denied difficulties eating, deneid sore jaw. Pt denied nutritional concerns at this time. Pt appeared lean, mild wasting to chest and shoudlers noted. Current Diet Order/ Nutrition Support Regular, cranberry juice TID Pertinent Medications Vitamin C, Colace, Iron, Culturelle, MOM, Remeron, Fleet Enema Pertinent Labs Reviewed. Nutritional Hx/Data Height 1.68 m Height (Calculated Centimeters) 167.6 Current Weight (lbs) 59.511 kg Weight (Calculated Kilograms) 59.5 Weight (Calculated Grams) 43838.3 [place] Body Weight 142 Weight Status Approriate GI Symptoms Usual diet at home [facility]: regular Skin Integrity/Comment: Andrae 16. Current %PO Fair (50-74%) Estimated Nutritional Goals BEE in Kcals: Using Current wt Calories/Kcals/Kg CBW 131.2lb/59.6kg Kcals Calculated 1490-1788kcal (25-30kcal/kg) Protein: Using Current wt Protein Calculated 60g (1g/kg) Fluid: ml 1490-1788ml (1ml/kcal) Nutritional Problem 1. Problem Problem No nutritional problem at this time. Intervention/Recommendation Comments 1. Continue with current diet order. Avg PO intake is adequate. Expected Outcomes/Goals Expected Outcomes/Goals 1. PO intake conitnue to meet at least 75% of estimated nutritional needs.
[2017-07-22] MEDS: OLANZapine 15 MG, OLANZapine 2.5 MG PO SCH (20:29)
--- NOTE | 2017-07-22 23:22 | Progress Notes ---
DATE: 07/22/2017 Case was discussed with staff of the patient, reviewed records. The patient continues to be preoccupied, stays in bed, continues to talk to himself, unpredictable, impulsive and needing redirection. He has been compliant with the medication with no side effects, no sedation, no nausea. I will be initiating also Namenda on him to help improve his cognitive functioning and so far no side effects with the medication, no sedation, no nausea, no extrapyramidal symptoms and we will continue to work with the patient in group therapy, milieu therapy, adjust the medication as needed. JOB# [id number]
[2017-07-23] MEDS: Multivitamin w/ Minerals Tab PO SCH (08:37)
[2017-07-23] MEDS: Ferrous Sulfate 325 MG TAB PO SCH ×3 (08:39→20:12)
[2017-07-23] MEDS: Aspirin 81mg Chewable Tab PO SCH (08:40)
--- NOTE | 2017-07-23 20:22 | Internal Medicine Prog Note ---
Internal Medicine Subjective - Subjective Service Date: 07/23/17 Patient seen and examined:: with staff ([employer] IS WORKING.) Patient is:: awake, in bed, talking, confused Per staff patient has:: no adverse event Internal Medicine Objective - Results Result Diagrams: 07/22/17 07:10 07/21/17 11:41 Recent Labs: Laboratory Last Values WBC 8.1 Th/cmm (4.8-10.8) 07/22/17 07:10 RBC 3.98 Mil/cmm (3.80-5.80) 07/22/17 07:10 Hgb 12.7 gm/dL (12-16) D 07/22/17 07:10 Hct 37.3 % (41.0-60) L D 07/22/17 07:10 MCV 93.7 fl (80-99) 07/22/17 07:10 MCH 32.0 pg (27.0-31.0) H 07/22/17 07:10 MCHC Differential 34.2 pg (28.0-36.0) 07/22/17 07:10 RDW 14.7 % (11.5-20.0) 07/22/17 07:10 Plt Count 203 Th/cmm (150-400) 07/22/17 07:10 MPV 8.2 fl 07/22/17 07:10 Neutrophils % 66.3 % (40.0-80.0) 07/22/17 07:10 Lymphocytes % 21.2 % (20.0-50.0) 07/22/17 07:10 Monocytes % 9.4 % (2.0-10.0) 07/22/17 07:10 Eosinophils % 2.2 % (0.0-5.0) 07/22/17 07:10 Basophils % 0.9 % (0.0-2.0) 07/22/17 07:10 Sodium 137 mEq/L (136-145) 07/21/17 11:41 Potassium 4.7 mEq/L (3.5-5.1) 07/21/17 11:41 Chloride 105 mEq/L (98-107) 07/21/17 11:41 Carbon Dioxide 28.4 mEq/L (21.0-31.0) 07/21/17 11:41 Anion Gap 8.3 (7.0-16.0) 07/21/17 11:41 BUN 17 mg/dL (7-25) 07/21/17 11:41 Creatinine 0.8 mg/dL (0.7-1.3) 07/21/17 11:41 Est GFR ( Amer) > 60.0 ml/min (>90) 07/21/17 11:41 Est GFR (Non-Af Amer) > 60.0 ml/min 07/21/17 11:41 BUN/Creatinine Ratio 21.3 07/21/17 11:41 Glucose 88 mg/dL (70-105) 07/21/17 11:41 Calcium 9.5 mg/dL (8.6-10.3) 07/21/17 11:41 Total Bilirubin 0.3 mg/dL (0.3-1.0) 07/21/17 11:41 AST 13 U/L (13-39) 07/21/17 11:41 ALT 10 U/L (7-52) 07/21/17 11:41 Alkaline Phosphatase 75 U/L (34-104) 07/21/17 11:41 Total Protein 5.9 gm/dL (6.0-8.3) L 07/21/17 11:41 Albumin 3.4 gm/dL (4.2-5.5) L 07/21/17 11:41 Globulin 2.5 gm/dL 07/21/17 11:41 Albumin/Globulin Ratio 1.4 (1.0-1.8) 07/21/17 11:41 Triglycerides 192 mg/dL (<150) H 07/03/17 20:54 Cholesterol 175 mg/dL (<200) 07/03/17 20:54 LDL Cholesterol Direct 101 mg/dL (75-193) 07/03/17 20:54 HDL Cholesterol 54 mg/dL (23-92) 07/03/17 20:54 TSH 2.72 uIU/ml (0.34-5.60) 07/03/17 20:54 Urine Source CLEAN C 07/03/17 21:20 Urine Color YELLOW 07/03/17 21:20 Urine Clarity CLOUDY (CLEAR) 07/03/17 21:20 Urine pH 6.0 (4.6 - 8.0) 07/03/17 21:20 Ur Specific [place] 1.025 (1.005-1.030) 07/03/17 21:20 Urine Protein 100 mg/dL (NEGATIVE) H 07/03/17 21:20 Urine Glucose (UA) NEGATIVE mg/dL (NEGATIVE) 07/03/17 21:20 Urine Ketones NEGATIVE mg/dL (NEGATIVE) 07/03/17 21:20 Urine Blood LARGE (NEGATIVE) H 07/03/17 21:20 Urine Nitrate NEGATIVE (NEGATIVE) 07/03/17 21:20 Urine Bilirubin NEGATIVE (NEGATIVE) 07/03/17 21:20 Urine Urobilinogen 0.2 E.U./dL (0.2 - 1.0) 07/03/17 21:20 Ur Leukocyte Esterase MODERATE (NEGATIVE) H 07/03/17 21:20 Urine RBC 25-50 /hpf (0-5) H 07/03/17 21:20 Urine WBC 25-50 /hpf (0-5) H 07/03/17 21:20 Ur Epithelial Cells NONE SEEN /lpf (FEW) 07/03/17 21:20 Urine Bacteria MODERATE /hpf (NONE SEEN) 07/03/17 21:20 Valproic Acid 90.5 ug/mL (50.0-100.0) 07/03/17 20:54 RPR NONREACTIVE (NONREACTIVE) 07/03/17 20:54 - Physical Exam Vitals and I&O: Vital Signs Temp 97.7 F 07/23/17 20:00 Pulse 76 07/23/17 20:00 Resp 18 07/23/17 20:00 BP 106/63 07/23/17 20:00 Pulse Ox 98 07/23/17 20:00 Intake & Output 07/23/17 07/23/17 07/24/17 06:59 18:59 06:59 Intake Total 480 1200 Output Total 540 1000 Balance -60 200 Intake: Oral 480 1200 Output: Urine 540 1000 Other: # Voids 3 # Bowel Movements 0 Stool Characteristics Soft Brown Active Medications: Current Medications Acetaminophen (Tylenol) 650 mg PO Q4HR PRN PRN Reason: Pain or Fever >101 Stop: 09/01/17 23:19 Last Admin: 07/23/17 15:12 Dose: 650 mg Acetaminophen/Hydrocodone Bitart ([place] 5mg/325mg) 1 tab PO Q6H PRN PRN Reason: Pain (Severe) Stop: 09/01/17 23:19 Last Admin: 07/21/17 14:22 Dose: 1 tab Ascorbic Acid (Vitamin C) 500 mg PO DAILY [facility] Stop: 09/02/17 08:59 Last Admin: 07/23/17 08:38 Dose: 500 mg Aspirin (Aspirin Chewable) 81 mg PO DAILY [facility] Stop: 09/02/17 08:59 Last Admin: 07/23/17 08:40 Dose: 81 mg Bisacodyl (Dulcolax 10 Mg Supp) 10 mg RC DAILY PRN PRN Reason: Constipation Stop: 09/01/17 23:19 Divalproex Sodium (Depakote Dr) 500 mg PO TID [facility] PRN Reason: Protocol Stop: 09/02/17 08:59 Last Admin: 07/23/17 20:12 Dose: 500 mg Docusate Sodium (Colace) 100 mg PO BID [facility] Stop: 09/02/17 08:59 Last Admin: 07/23/17 17:33 Dose: 100 mg Donepezil HCl (Aricept) 5 mg PO HS [facility] Stop: 09/07/17 20:59 Last Admin: 07/23/17 20:12 Dose: 5 mg Ferrous Sulfate (Iron) 325 mg PO TID [facility] Stop: 09/02/17 08:59 Last Admin: 07/23/17 20:12 Dose: 325 mg Magnesium Hydroxide (Milk Of Magnesia) 30 ml PO HS PRN PRN Reason: Constipation Stop: 09/01/17 23:19 Last Admin: 07/20/17 21:04 Dose: 30 ml Memantine (Namenda) 5 mg PO DAILY [facility] Stop: 09/21/17 08:59 Last Admin: 07/23/17 08:39 Dose: 5 mg Metoprolol Tartrate (Lopressor) 25 mg PO BID [facility] Stop: 09/02/17 08:59 Last Admin: 07/23/17 17:06 Dose: Not Given Mirtazapine (Remeron) 30 mg PO HS [facility] Stop: 09/02/17 20:59 Last Admin: 07/23/17 20:12 Dose: 30 mg Olanzapine (Zyprexa) 20 mg PO HS [facility] Stop: 09/21/17 20:59 Last Admin: 07/23/17 20:12 Dose: 20 mg Sodium Phosphate (Fleet Enema) 135 ml RC Q48H PRN PRN Reason: Constipation Stop: 09/01/17 23:19 General: demented HEENT: NC/AT, PERRLA, EOMI, anicteric sclerae, throat clear Neck: No JVD, No thyromegaly, +2 carotid pulse wo bruit, No LAD, + JVD Lungs: CTAB Cardiovascular: RRR, Normal S1, Normal S2, without murmur Abdomen: soft, non-tender, non-distended Extremities: clear Neurological: no change Internal Medicine Assmt/Plan - Assessment Assessment: 1.HTNT 2.NEUROGENIC BLADDER. 3.DEMENTIA. - Plan Plan: CONTINUE ON current medication and diet Nutritional Asmnt/Malnutr-PDOC - Dietary Evaluation Malnutrition Findings (Please click <Entered> for more info): Nutritional Asmnt/Malnutrition Start: 07/07/17 18: 41 Text: Status: Complete Freq: Document 07/07/17 18:41 GSUN (Rec: 07/07/17 18:43 [email or web address] [email or web address]) Nutritional Asmnt/Malnutrition Patient General Information Nutritional Screening Moderate Risk Screening Diagnosis Major depression, recurrent with psychosis and dementia Pertinent Medical Hx/Surgical Hx HTN, dementia, depression psychosis Subjective Information 66 year old from SNF. Spoke to pt resting in bed. Pt was pleasant, slight confusion noted. Avg PO intake 69% of meals since adm, meeting nutritional needs. Pt stated good appetite. Pt is edentulous, denied difficulties eating, deneid sore jaw. Pt denied nutritional concerns at this time. Pt appeared lean, mild wasting to chest and shoudlers noted. Current Diet Order/ Nutrition Support Regular, cranberry juice TID Pertinent Medications Vitamin C, Colace, Iron, Culturelle, MOM, Remeron, Fleet Enema Pertinent Labs Reviewed. Nutritional Hx/Data Height 1.68 m Height (Calculated Centimeters) 167.6 Current Weight (lbs) 59.511 kg Weight (Calculated Kilograms) 59.5 Weight (Calculated Grams) 01852.3 [place] Body Weight 142 Weight Status Approriate GI Symptoms Usual diet at home [facility]: regular Skin Integrity/Comment: Andrae 16. Current %PO Fair (50-74%) Estimated Nutritional Goals BEE in Kcals: Using Current wt Calories/Kcals/Kg CBW 131.2lb/59.6kg Kcals Calculated 1490-1788kcal (25-30kcal/kg) Protein: Using Current wt Protein Calculated 60g (1g/kg) Fluid: ml 1490-1788ml (1ml/kcal) Nutritional Problem 1. Problem Problem No nutritional problem at this time. Intervention/Recommendation Comments 1. Continue with current diet order. Avg PO intake is adequate. Expected Outcomes/Goals Expected Outcomes/Goals 1. PO intake conitnue to meet at least 75% of estimated nutritional needs.
[2017-07-23] MEDS: Hydrocodone/APAP 5mg/325mg Tab PO PRN (23:46)
--- NOTE | 2017-07-24 01:12 | Progress Notes ---
DATE: 07/23/2017 Case was discussed with staff of the patient, reviewed records. The patient reports to have been yelling, screaming. He also complained of constipation. I asked the staff to get medication for that. He already has something ordered, docusate sodium. He is sleeping well, eating well. Continues to be unable to make safe plan for self-care. I will be increasing Zyprexa 20 mg at bedtime. We will continue the patient in group therapy and milieu therapy and adjust medication as needed. JOB# [id number]
[2017-07-24] MEDS: Hydrocodone/APAP 5mg/325mg Tab PO PRN ×3 (06:41→22:37)
[2017-07-24] MEDS: Ferrous Sulfate 325 MG TAB PO SCH ×3 (08:17→20:55)
[2017-07-24] MEDS: Aspirin 81mg Chewable Tab PO SCH (08:18)
[2017-07-24] MEDS: Multivitamin w/ Minerals Tab PO SCH (08:18)
--- NOTE | 2017-07-24 16:01 | Internal Medicine Prog Note ---
Internal Medicine Subjective - Subjective Service Date: 07/24/17 Patient seen and examined:: without staff Patient is:: awake, in bed, talking, confused Per staff patient has:: no adverse event Internal Medicine Objective - Results Result Diagrams: 07/22/17 07:10 07/21/17 11:41 Recent Labs: Laboratory Last Values WBC 8.1 Th/cmm (4.8-10.8) 07/22/17 07:10 RBC 3.98 Mil/cmm (3.80-5.80) 07/22/17 07:10 Hgb 12.7 gm/dL (12-16) D 07/22/17 07:10 Hct 37.3 % (41.0-60) L D 07/22/17 07:10 MCV 93.7 fl (80-99) 07/22/17 07:10 MCH 32.0 pg (27.0-31.0) H 07/22/17 07:10 MCHC Differential 34.2 pg (28.0-36.0) 07/22/17 07:10 RDW 14.7 % (11.5-20.0) 07/22/17 07:10 Plt Count 203 Th/cmm (150-400) 07/22/17 07:10 MPV 8.2 fl 07/22/17 07:10 Neutrophils % 66.3 % (40.0-80.0) 07/22/17 07:10 Lymphocytes % 21.2 % (20.0-50.0) 07/22/17 07:10 Monocytes % 9.4 % (2.0-10.0) 07/22/17 07:10 Eosinophils % 2.2 % (0.0-5.0) 07/22/17 07:10 Basophils % 0.9 % (0.0-2.0) 07/22/17 07:10 Sodium 137 mEq/L (136-145) 07/21/17 11:41 Potassium 4.7 mEq/L (3.5-5.1) 07/21/17 11:41 Chloride 105 mEq/L (98-107) 07/21/17 11:41 Carbon Dioxide 28.4 mEq/L (21.0-31.0) 07/21/17 11:41 Anion Gap 8.3 (7.0-16.0) 07/21/17 11:41 BUN 17 mg/dL (7-25) 07/21/17 11:41 Creatinine 0.8 mg/dL (0.7-1.3) 07/21/17 11:41 Est GFR ( Amer) > 60.0 ml/min (>90) 07/21/17 11:41 Est GFR (Non-Af Amer) > 60.0 ml/min 07/21/17 11:41 BUN/Creatinine Ratio 21.3 07/21/17 11:41 Glucose 88 mg/dL (70-105) 07/21/17 11:41 Calcium 9.5 mg/dL (8.6-10.3) 07/21/17 11:41 Total Bilirubin 0.3 mg/dL (0.3-1.0) 07/21/17 11:41 AST 13 U/L (13-39) 07/21/17 11:41 ALT 10 U/L (7-52) 07/21/17 11:41 Alkaline Phosphatase 75 U/L (34-104) 07/21/17 11:41 Total Protein 5.9 gm/dL (6.0-8.3) L 07/21/17 11:41 Albumin 3.4 gm/dL (4.2-5.5) L 07/21/17 11:41 Globulin 2.5 gm/dL 07/21/17 11:41 Albumin/Globulin Ratio 1.4 (1.0-1.8) 07/21/17 11:41 Triglycerides 192 mg/dL (<150) H 07/03/17 20:54 Cholesterol 175 mg/dL (<200) 07/03/17 20:54 LDL Cholesterol Direct 101 mg/dL (75-193) 07/03/17 20:54 HDL Cholesterol 54 mg/dL (23-92) 07/03/17 20:54 TSH 2.72 uIU/ml (0.34-5.60) 07/03/17 20:54 Urine Source CLEAN C 07/03/17 21:20 Urine Color YELLOW 07/03/17 21:20 Urine Clarity CLOUDY (CLEAR) 07/03/17 21:20 Urine pH 6.0 (4.6 - 8.0) 07/03/17 21:20 Ur Specific [place] 1.025 (1.005-1.030) 07/03/17 21:20 Urine Protein 100 mg/dL (NEGATIVE) H 07/03/17 21:20 Urine Glucose (UA) NEGATIVE mg/dL (NEGATIVE) 07/03/17 21:20 Urine Ketones NEGATIVE mg/dL (NEGATIVE) 07/03/17 21:20 Urine Blood LARGE (NEGATIVE) H 07/03/17 21:20 Urine Nitrate NEGATIVE (NEGATIVE) 07/03/17 21:20 Urine Bilirubin NEGATIVE (NEGATIVE) 07/03/17 21:20 Urine Urobilinogen 0.2 E.U./dL (0.2 - 1.0) 07/03/17 21:20 Ur Leukocyte Esterase MODERATE (NEGATIVE) H 07/03/17 21:20 Urine RBC 25-50 /hpf (0-5) H 07/03/17 21:20 Urine WBC 25-50 /hpf (0-5) H 07/03/17 21:20 Ur Epithelial Cells NONE SEEN /lpf (FEW) 07/03/17 21:20 Urine Bacteria MODERATE /hpf (NONE SEEN) 07/03/17 21:20 Valproic Acid 90.5 ug/mL (50.0-100.0) 07/03/17 20:54 RPR NONREACTIVE (NONREACTIVE) 07/03/17 20:54 - Physical Exam Vitals and I&O: Vital Signs Temp 97.5 F 07/24/17 06:25 Pulse 57 07/24/17 08:19 Resp 20 07/24/17 06:25 BP 108/71 07/24/17 08:19 Pulse Ox 97 07/24/17 06:25 Intake & Output 07/23/17 07/24/17 07/24/17 18:59 06:59 18:59 Intake Total 1320 Output Total 1800 Balance -480 Intake: Oral 1320 Output: Urine 1800 Other: Stool Characteristics Soft Brown Active Medications: Current Medications Acetaminophen (Tylenol) 650 mg PO Q4HR PRN PRN Reason: Pain or Fever >101 Stop: 09/01/17 23:19 Last Admin: 07/23/17 15:12 Dose: 650 mg Acetaminophen/Hydrocodone Bitart ([place] 5mg/325mg) 1 tab PO Q6H PRN PRN Reason: Pain (Severe) Stop: 09/01/17 23:19 Last Admin: 07/24/17 06:41 Dose: 1 tab Ascorbic Acid (Vitamin C) 500 mg PO DAILY [facility] Stop: 09/02/17 08:59 Last Admin: 07/24/17 08:18 Dose: 500 mg Aspirin (Aspirin Chewable) 81 mg PO DAILY [facility] Stop: 09/02/17 08:59 Last Admin: 07/24/17 08:18 Dose: 81 mg Bisacodyl (Dulcolax 10 Mg Supp) 10 mg RC DAILY PRN PRN Reason: Constipation Stop: 09/01/17 23:19 Divalproex Sodium (Depakote Dr) 500 mg PO TID [facility] PRN Reason: Protocol Stop: 09/02/17 08:59 Last Admin: 07/24/17 13:38 Dose: 500 mg Docusate Sodium (Colace) 100 mg PO BID [facility] Stop: 09/02/17 08:59 Last Admin: 07/24/17 08:17 Dose: 100 mg Donepezil HCl (Aricept) 10 mg PO HS [facility] Stop: 09/22/17 11:43 Ferrous Sulfate (Iron) 325 mg PO TID [facility] Stop: 09/02/17 08:59 Last Admin: 07/24/17 13:38 Dose: 325 mg Magnesium Hydroxide (Milk Of Magnesia) 30 ml PO HS PRN PRN Reason: Constipation Stop: 09/01/17 23:19 Last Admin: 07/20/17 21:04 Dose: 30 ml Memantine (Namenda) 5 mg PO DAILY [facility] Stop: 09/21/17 08:59 Last Admin: 07/24/17 08:17 Dose: 5 mg Metoprolol Tartrate (Lopressor) 25 mg PO BID [facility] Stop: 09/02/17 08:59 Last Admin: 07/24/17 08:19 Dose: Not Given Mirtazapine (Remeron) 30 mg PO HS [facility] Stop: 09/02/17 20:59 Last Admin: 07/23/17 20:12 Dose: 30 mg Olanzapine (Zyprexa) 20 mg PO [facility] Stop: 09/21/17 20:59 Last Admin: 07/23/17 20:12 Dose: 20 mg Sodium Phosphate (Fleet Enema) 135 ml RC Q48H PRN PRN Reason: Constipation Stop: 09/01/17 23:19 General: demented HEENT: NC/AT, PERRLA, EOMI, anicteric sclerae, throat clear Neck: No JVD, No thyromegaly, +2 carotid pulse wo bruit, No LAD, + JVD Lungs: CTAB Cardiovascular: RRR, Normal S1, Normal S2, without murmur Abdomen: soft, non-tender, non-distended Extremities: clear Neurological: no change Internal Medicine Assmt/Plan - Assessment Assessment: 1.HTNT 2.NEUROGENIC BLADDER. 3.DEMENTIA. - Plan Plan: CONTINUE ON current medication and diet Nutritional Asmnt/Malnutr-PDOC - Dietary Evaluation Malnutrition Findings (Please click <Entered> for more info): Nutritional Asmnt/Malnutrition Start: 07/07/17 18: 41 Text: Status: Complete Freq: Document 07/07/17 18:41 GSUN (Rec: 07/07/17 18:43 GSUN [email or web address]) Nutritional Asmnt/Malnutrition Patient General Information Nutritional Screening Moderate Risk Screening Diagnosis Major depression, recurrent with psychosis and dementia Pertinent Medical Hx/Surgical Hx HTN, dementia, depression psychosis Subjective Information 66 year old from SNF. Spoke to pt resting in bed. Pt was pleasant, slight confusion noted. Avg PO intake 69% of meals since adm, meeting nutritional needs. Pt stated good appetite. Pt is edentulous, denied difficulties eating, deneid sore jaw. Pt denied nutritional concerns at this time. Pt appeared lean, mild wasting to chest and shoudlers noted. Current Diet Order/ Nutrition Support Regular, cranberry juice TID Pertinent Medications Vitamin C, Colace, Iron, Culturelle, MOM, Remeron, Fleet Enema Pertinent Labs Reviewed. Nutritional Hx/Data Height 1.68 m Height (Calculated Centimeters) 167.6 Current Weight (lbs) 59.511 kg Weight (Calculated Kilograms) 59.5 Weight (Calculated Grams) 21167.3 [place] Body Weight 142 Weight Status Approriate GI Symptoms Usual diet at home [facility]: regular Skin Integrity/Comment: Andrae 16. Current %PO Fair (50-74%) Estimated Nutritional Goals BEE in Kcals: Using Current wt Calories/Kcals/Kg CBW 131.2lb/59.6kg Kcals Calculated 1490-1788kcal (25-30kcal/kg) Protein: Using Current wt Protein Calculated 60g (1g/kg) Fluid: ml 1490-1788ml (1ml/kcal) Nutritional Problem 1. Problem Problem No nutritional problem at this time. Intervention/Recommendation Comments 1. Continue with current diet order. Avg PO intake is adequate. Expected Outcomes/Goals Expected Outcomes/Goals 1. PO intake conitnue to meet at least 75% of estimated nutritional needs.
--- NOTE | 2017-07-25 02:04 | Progress Notes ---
DATE: 07/22/2017 Case was discussed with staff of the patient, reviewed records. The patient continues to be talking to himself and psychotic, unpredictable, impulsive and needing redirection. Continues to have poor insight. Continues to be unable to make safe plan for self-care. He is sleeping and eating well. He has been compliant with the medication with no side effects. I will be increasing the Aricept and he was started on Namenda yesterday and also olanzapine was increased yesterday to 20 mg a day. It is too early to make further changes. We will continue the patient in group therapy, milieu therapy, adjust medication as needed. JOB# [id number]
[2017-07-25] MEDS: Aspirin 81mg Chewable Tab PO SCH (09:23)
[2017-07-25] MEDS: Multivitamin w/ Minerals Tab PO SCH (09:23)
[2017-07-25] MEDS: Ferrous Sulfate 325 MG TAB PO SCH ×2 (09:23→14:50)
--- NOTE | 2017-07-25 13:54 | Internal Medicine Prog Note ---
Internal Medicine Subjective - Subjective Service Date: 07/25/17 Patient seen and examined:: without staff Patient is:: awake, in bed, talking, confused Per staff patient has:: no adverse event Internal Medicine Objective - Results Result Diagrams: 07/22/17 07:10 07/21/17 11:41 Recent Labs: Laboratory Last Values WBC 8.1 Th/cmm (4.8-10.8) 07/22/17 07:10 RBC 3.98 Mil/cmm (3.80-5.80) 07/22/17 07:10 Hgb 12.7 gm/dL (12-16) D 07/22/17 07:10 Hct 37.3 % (41.0-60) L D 07/22/17 07:10 MCV 93.7 fl (80-99) 07/22/17 07:10 MCH 32.0 pg (27.0-31.0) H 07/22/17 07:10 MCHC Differential 34.2 pg (28.0-36.0) 07/22/17 07:10 RDW 14.7 % (11.5-20.0) 07/22/17 07:10 Plt Count 203 Th/cmm (150-400) 07/22/17 07:10 MPV 8.2 fl 07/22/17 07:10 Neutrophils % 66.3 % (40.0-80.0) 07/22/17 07:10 Lymphocytes % 21.2 % (20.0-50.0) 07/22/17 07:10 Monocytes % 9.4 % (2.0-10.0) 07/22/17 07:10 Eosinophils % 2.2 % (0.0-5.0) 07/22/17 07:10 Basophils % 0.9 % (0.0-2.0) 07/22/17 07:10 Sodium 137 mEq/L (136-145) 07/21/17 11:41 Potassium 4.7 mEq/L (3.5-5.1) 07/21/17 11:41 Chloride 105 mEq/L (98-107) 07/21/17 11:41 Carbon Dioxide 28.4 mEq/L (21.0-31.0) 07/21/17 11:41 Anion Gap 8.3 (7.0-16.0) 07/21/17 11:41 BUN 17 mg/dL (7-25) 07/21/17 11:41 Creatinine 0.8 mg/dL (0.7-1.3) 07/21/17 11:41 Est GFR ( Amer) > 60.0 ml/min (>90) 07/21/17 11:41 Est GFR (Non-Af Amer) > 60.0 ml/min 07/21/17 11:41 BUN/Creatinine Ratio 21.3 07/21/17 11:41 Glucose 88 mg/dL (70-105) 07/21/17 11:41 Calcium 9.5 mg/dL (8.6-10.3) 07/21/17 11:41 Total Bilirubin 0.3 mg/dL (0.3-1.0) 07/21/17 11:41 AST 13 U/L (13-39) 07/21/17 11:41 ALT 10 U/L (7-52) 07/21/17 11:41 Alkaline Phosphatase 75 U/L (34-104) 07/21/17 11:41 Total Protein 5.9 gm/dL (6.0-8.3) L 07/21/17 11:41 Albumin 3.4 gm/dL (4.2-5.5) L 07/21/17 11:41 Globulin 2.5 gm/dL 07/21/17 11:41 Albumin/Globulin Ratio 1.4 (1.0-1.8) 07/21/17 11:41 Triglycerides 192 mg/dL (<150) H 07/03/17 20:54 Cholesterol 175 mg/dL (<200) 07/03/17 20:54 LDL Cholesterol Direct 101 mg/dL (75-193) 07/03/17 20:54 HDL Cholesterol 54 mg/dL (23-92) 07/03/17 20:54 TSH 2.72 uIU/ml (0.34-5.60) 07/03/17 20:54 Urine Source CLEAN C 07/03/17 21:20 Urine Color YELLOW 07/03/17 21:20 Urine Clarity CLOUDY (CLEAR) 07/03/17 21:20 Urine pH 6.0 (4.6 - 8.0) 07/03/17 21:20 Ur Specific [place] 1.025 (1.005-1.030) 07/03/17 21:20 Urine Protein 100 mg/dL (NEGATIVE) H 07/03/17 21:20 Urine Glucose (UA) NEGATIVE mg/dL (NEGATIVE) 07/03/17 21:20 Urine Ketones NEGATIVE mg/dL (NEGATIVE) 07/03/17 21:20 Urine Blood LARGE (NEGATIVE) H 07/03/17 21:20 Urine Nitrate NEGATIVE (NEGATIVE) 07/03/17 21:20 Urine Bilirubin NEGATIVE (NEGATIVE) 07/03/17 21:20 Urine Urobilinogen 0.2 E.U./dL (0.2 - 1.0) 07/03/17 21:20 Ur Leukocyte Esterase MODERATE (NEGATIVE) H 07/03/17 21:20 Urine RBC 25-50 /hpf (0-5) H 07/03/17 21:20 Urine WBC 25-50 /hpf (0-5) H 07/03/17 21:20 Ur Epithelial Cells NONE SEEN /lpf (FEW) 07/03/17 21:20 Urine Bacteria MODERATE /hpf (NONE SEEN) 07/03/17 21:20 Valproic Acid 90.5 ug/mL (50.0-100.0) 07/03/17 20:54 RPR NONREACTIVE (NONREACTIVE) 07/03/17 20:54 - Physical Exam Vitals and I&O: Vital Signs Temp 97 F 07/25/17 06:26 Pulse 62 07/25/17 09:28 Resp 20 07/25/17 06:26 BP 105/65 07/25/17 09:28 Pulse Ox 97 07/25/17 06:26 Intake & Output 07/24/17 07/25/17 07/25/17 18:59 06:59 18:59 Intake Total 1000 120 Output Total 650 700 Balance 350 -580 Intake: Oral 1000 120 Output: Urine 650 700 Other: # Voids 3 # Bowel Movements 1 Active Medications: Current Medications Acetaminophen (Tylenol) 650 mg PO Q4HR PRN PRN Reason: Pain or Fever >101 Stop: 09/01/17 23:19 Last Admin: 07/25/17 11:01 Dose: 650 mg Acetaminophen/Hydrocodone Bitart ([place] 5mg/325mg) 1 tab PO Q6H PRN PRN Reason: Pain (Severe) Stop: 09/01/17 23:19 Last Admin: 07/24/17 22:37 Dose: 1 tab Ascorbic Acid (Vitamin C) 500 mg PO DAILY [facility] Stop: 09/02/17 08:59 Last Admin: 07/25/17 09:23 Dose: 500 mg Aspirin (Aspirin Chewable) 81 mg PO DAILY [facility] Stop: 09/02/17 08:59 Last Admin: 07/25/17 09:23 Dose: 81 mg Bisacodyl (Dulcolax 10 Mg Supp) 10 mg RC DAILY PRN PRN Reason: Constipation Stop: 09/01/17 23:19 Divalproex Sodium (Depakote Dr) 500 mg PO TID LUCIA PRN Reason: Protocol Stop: 09/02/17 08:59 Last Admin: 07/25/17 09:23 Dose: 500 mg Docusate Sodium (Colace) 100 mg PO BID [facility] Stop: 09/02/17 08:59 Last Admin: 07/25/17 09:23 Dose: 100 mg Donepezil HCl (Aricept) 10 mg PO HS [facility] Stop: 09/22/17 11:43 Last Admin: 07/24/17 20:55 Dose: 10 mg Ferrous Sulfate (Iron) 325 mg PO TID [facility] Stop: 09/02/17 08:59 Last Admin: 07/25/17 09:23 Dose: 325 mg Magnesium Hydroxide (Milk Of Magnesia) 30 ml PO HS PRN PRN Reason: Constipation Stop: 09/01/17 23:19 Last Admin: 07/20/17 21:04 Dose: 30 ml Memantine (Namenda) 5 mg PO DAILY [facility] Stop: 09/21/17 08:59 Last Admin: 07/25/17 09:23 Dose: 5 mg Metoprolol Tartrate (Lopressor) 25 mg PO BID [facility] Stop: 09/02/17 08:59 Last Admin: 07/25/17 09:28 Dose: Not Given Mirtazapine (Remeron) 30 mg PO HS [facility] Stop: 09/02/17 20:59 Last Admin: 07/24/17 20:55 Dose: 30 mg Olanzapine (Zyprexa) 20 mg PO HS [facility] Stop: 09/21/17 20:59 Last Admin: 07/24/17 20:55 Dose: 20 mg Sodium Phosphate (Fleet Enema) 135 ml RC Q48H PRN PRN Reason: Constipation Stop: 11/06/17 23:19 General: demented HEENT: NC/AT, PERRLA, EOMI, anicteric sclerae, throat clear Neck: No JVD, No thyromegaly, +2 carotid pulse wo bruit, No LAD, + JVD Lungs: CTAB Cardiovascular: RRR, Normal S1, Normal S2, without murmur Abdomen: soft, non-tender, non-distended Extremities: clear Neurological: no change Internal Medicine Assmt/Plan - Assessment Assessment: 1.HTNT 2.NEUROGENIC BLADDER. 3.DEMENTIA. 4.MRSA COLONIZATION. - Plan Plan: CONTINUE ON current medication and dietBACTROBAN OINTMENT APPLY TO BOTH NOSTRIL DAILY. Nutritional Asmnt/Malnutr-PDOC - Dietary Evaluation Malnutrition Findings (Please click <Entered> for more info): Nutritional Asmnt/Malnutrition Start: 07/07/17 18: 41 Text: Status: Complete Freq: Document 07/07/17 18:41 GSUN (Rec: 07/07/17 18:43 [id number] [email or web address]) Nutritional Asmnt/Malnutrition Patient General Information Nutritional Screening Moderate Risk Screening Diagnosis Major depression, recurrent with psychosis and dementia Pertinent Medical Hx/Surgical Hx HTN, dementia, depression psychosis Subjective Information 66 year old from SNF. Spoke to pt resting in bed. Pt was pleasant, slight confusion noted. Avg PO intake 69% of meals since adm, meeting nutritional needs. Pt stated good appetite. Pt is edentulous, denied difficulties eating, deneid sore jaw. Pt denied nutritional concerns at this time. Pt appeared lean, mild wasting to chest and shoudlers noted. Current Diet Order/ Nutrition Support Regular, cranberry juice TID Pertinent Medications Vitamin C, Colace, Iron, Culturelle, MOM, Remeron, Fleet Enema Pertinent Labs Reviewed. Nutritional Hx/Data Height 1.68 m Height (Calculated Centimeters) 167.6 Current Weight (lbs) 59.511 kg Weight (Calculated Kilograms) 59.5 Weight (Calculated Grams) 19566.3 [place] Body Weight 142 Weight Status Approriate GI Symptoms Usual diet at home [facility]: regular Skin Integrity/Comment: Andrae 16. Current %PO Fair (50-74%) Estimated Nutritional Goals BEE in Kcals: Using Current wt Calories/Kcals/Kg CBW 131.2lb/59.6kg Kcals Calculated 1490-1788kcal (25-30kcal/kg) Protein: Using Current wt Protein Calculated 60g (1g/kg) Fluid: ml 1490-1788ml (1ml/kcal) Nutritional Problem 1. Problem Problem No nutritional problem at this time. Intervention/Recommendation Comments 1. Continue with current diet order. Avg PO intake is adequate. Expected Outcomes/Goals Expected Outcomes/Goals 1. PO intake conitnue to meet at least 75% of estimated nutritional needs.
--- NOTE | 2017-07-26 00:26 | Progress Notes ---
DATE: 07/25/2017 SUBJECTIVE: Case was discussed with staff of the patient, reviewed records. The patient continues to be internally preoccupied, talking to himself, responding to internal stimuli, unpredictable, impulsive, needing redirection. He has been compliant with the medication with no side effects, no sedation, no nausea, no extrapyramidal symptoms. I did increase his olanzapine to 20 mg a day. I will be checking his Depakote level and to make sure it is on the right dose and we will continue to work with the patient in group therapy, milieu therapy, adjust medication as needed. JOB# [id number]
--- NOTE | 2017-08-04 12:47 | Discharge Summary ---
DATE OF DISCHARGE: 07/25/2017 IDENTIFYING INFORMATION: The patient is a 66-year-old male. HISTORY OF PRESENT ILLNESS: The patient was sent from prison because of agitation. He came from [facility]. The patient himself is a poor historian and he knew he was in the hospital, he thinks that he lives in the hospital. He does not know exactly why he was in the hospital. He denies that he was hallucinating, but admits that he has a history of hallucination. He denies any command hallucination. He reports he sleeps well. He is not eating well. He was able to tell me the date and his date of , but his speech was pressured when I talked to him. The patient has been on Depakote ____ Remeron at bedtime, and olanzapine 10 mg at bedtime. He has a history of prior hospitalization because of pain. Unable to give any information neither he has a prior suicide attempt. Has no known drug allergies. COURSE IN THE HOSPITAL: The patient was continued with his medications. His medication was increased over the course of his stay. Olanzapine was increased to [address] Louie took care of his medical condition. He was continued with Multico multivitamin, Dulcolax, enema, hydrocodone for pain, and aspirin. He was also on Depakote 500 mg that was increased to 3 times a day and I initiated Aricept and he was on Aricept 10 mg at bedtime that was continued. He was also on iron, Namenda 5 mg daily, metoprolol and Remeron was continued 30 mg at bedtime. The patient progressively got better. He continues, however, to be demented. He continues to isolate himself, however, he is not acting anyway dangerous. He was sleeping well, eating well, no longer acting in anyway dangerous or aggressive, so we felt he could be discharged to a lesser level of care. FINAL DIAGNOSES: ____ psychosis, recurrent; dementia. MEDICAL DIAGNOSES: 1. Urinary tract infection as per Dr. Louie. 2. Hypertension. 3. Hyperlipidemia. The patient will be going back to [facility], will follow up with the psychiatrist and primary care physician. EXPECTED OUTCOME: Stable if the patient complies with the above. JOB# [id number]
== END 2017-07-25 17:30 | disposition home or self-care (01) | DRG 885 ==
LOC: ER 20:20 → GERO 22:00
PROVIDERS: ADMIT Psychiatry & Neurology Psychiatry; ATTEND Psychiatry & Neurology Psychiatry
DX: F33.3 Major depressive disorder, recurrent, severe with psychotic symptoms (principal); F03.90 Unspecified dementia, unspecified severity, without behavioral disturbance, psychotic disturbance, mood disturbance, and anxiety; N39.0 Urinary tract infection, site not specified; E78.5 Hyperlipidemia, unspecified; N18.9 Chronic kidney disease, unspecified; I12.9 Hypertensive chronic kidney disease with stage 1 through stage 4 chronic kidney disease, or unspecified chronic kidney disease; F17.210 Nicotine dependence, cigarettes, uncomplicated; R31.9 Hematuria, unspecified; N31.2 Flaccid neuropathic bladder, not elsewhere classified; Z22.322 Carrier or suspected carrier of Methicillin resistant Staphylococcus aureus
CPT/HCPCS: 36415-UA; 80053-TC; 80061-TC; 80164-TC; 81001-TC; 84443-TC; 85025-TC; 86592-TC; 87086-90; 93005; J0696; J7051; Z7610